=== PATIENT | female | born 1950 | race Hispanic/Latino ===

== ENCOUNTER 2020-03-14 09:20 | Inpatient (IN) | payer MEDICAID, OTHER ==
[~2020-03-14] VITALS: Ht 160 cm; Wt 73.5 kg
[2020-03-14 09:36] VITALS: BP 104/52
[2020-03-14 09:40] LABS: BASOPHILS % (AUTO) 0.5 % (0.0-2.0); EOSINOPHILS % (AUTO) 2.5 % (0.0-3.0); HEMATOCRIT 28.4 % (37.0-47.0); HEMOGLOBIN 9.5 G/DL (12.0-16.0); MEAN CORPUSCULAR VOLUME 81 FL (80-99); MONOCYTES % (AUTO) 6.1 % (1.0-10.0); NEUTROPHILS % (AUTO) 48.9 % (45.0-75.0); PLATELET COUNT 211 K/UL (150-450); RED BLOOD COUNT 3.51 M/UL (4.20-5.40); RED CELL DISTRIBUTION WIDTH 13.4 % (11.6-14.8)
[2020-03-14 09:50] LABS: ANION GAP 7 mmol/L (5-15); BLOOD UREA NITROGEN 17 mg/dL (7-18); CALCIUM 8.4 MG/DL (8.5-10.1); CARBON DIOXIDE 29 MMOL/L (21-32); CHLORIDE 105 MMOL/L (98-107); CREATININE 1.5 MG/DL (0.55-1.30); POTASSIUM 4.9 MMOL/L (3.5-5.1); SODIUM 141 MMOL/L (136-145)
[2020-03-14 10:06] LABS: ALANINE AMINOTRANSFERASE 12 U/L (12-78); ALBUMIN 2.9 G/DL (3.4-5.0); ALBUMIN/GLOBULIN RATIO 0.7 (1.0-2.7); ALKALINE PHOSPHATASE 106 U/L (46-116); ASPARTATE AMINO TRANSFERASE 15 U/L (15-37); BILIRUBIN,TOTAL 0.4 MG/DL (0.2-1.0); CREATINE KINASE 67 U/L (26-308)
[2020-03-14] MEDS ORDERED: Morphine Sulfate 2mg/ml Inj(IV/IM USE ONLY) IVP ONE (11:00)
--- NOTE | 2020-03-14 11:44 | Emergency Room Report ---
History of Present Illness General Chief Complaint: Chest Pain Source: Patient Present Illness HPI Patient presents with complaints of left upper chest pain reports that it started in the morning time upon awaking Pain is 5 out of 10 denies any change with position or exertion Denies any headache denies any pleurisy denies any vomiting or diarrhea Denies any change in recent medications she does have multiple medical history including hypertension, cardiac disease diabetes Allergies: Coded Allergies: TRAMADOL (Verified Allergy, Unknown, 03/14/20) COVID-19 Screening Contact w/high risk pt: No Recent Travel to affected area: No Experienced COVID-19 symptoms?: No COVID-19 Testing performed NOZZLE WORKER: No Patient History Past Medical History: see triage record Reviewed Nursing Documentation: PMH: Agreed; PSxH: Agreed Nursing Documentation-PMH Past Medical History: No History, Except For Hx Hypertension: Yes Hx Diabetes: Yes Review of Systems All Other Systems: negative except mentioned in HPI Physical Exam Vital Signs Date Time Temp Pulse Resp B/P (MAP) Pulse Ox O2 Delivery O2 Flow Rate FiO2 03/14/20 09:20 97.0 79 16 103/43 (63) 97 Room Air 03/14/20 09:36 99 Sp02 EP Interpretation: reviewed, normal General Appearance: no apparent distress Head: normocephalic, atraumatic Eyes: bilateral eye PERRL, bilateral eye EOMI ENT: hearing grossly normal, EOM grossly intact Neck: supple Respiratory: lungs clear, no respiratory distress, no retraction Cardiovascular #1: regular rate, rhythm Gastrointestinal: non tender, soft, no mass Musculoskeletal: normal inspection Neurologic: alert, oriented x3 Skin: no rash Lymphatic: normal inspection Medical Decision Making Diagnostic Impression: Primary Impression: ACS (acute coronary syndrome) ER Course Patient is a fairly complex patient with multiple differential to consideration including but not limited to cardiac cardiopulmonary and vascular emergencies Patient's troponin is intermediate low Chest x-ray does not show any acute process EKG shows nonspecific findings Given the reevaluation and patient's multiple comorbidities she is admitted for further care I spoke to [facility] contracted physician who is accepting the patient for transfer Labs Test 03/14/20 09:30 White Blood Count 8.0 K/UL (4.8-10.8) Red Blood Count 3.51 M/UL (4.20-5.40) Hemoglobin 9.5 G/DL (12.0-16.0) Hematocrit 28.4 % (37.0-47.0) Mean Corpuscular Volume 81 FL (80-99) Mean Corpuscular Hemoglobin 27.2 PG (27.0-31.0) Mean Corpuscular Hemoglobin Concent 33.6 G/DL (32.0-36.0) Red Cell Distribution Width 13.4 % (11.6-14.8) Platelet Count 211 K/UL (150-450) Mean Platelet Volume 5.5 FL (6.5-10.1) Neutrophils (%) (Auto) 48.9 % (45.0-75.0) Lymphocytes (%) (Auto) 42.0 % (20.0-45.0) Monocytes (%) (Auto) 6.1 % (1.0-10.0) Eosinophils (%) (Auto) 2.5 % (0.0-3.0) Basophils (%) (Auto) 0.5 % (0.0-2.0) Sodium Level 141 MMOL/L (136-145) Potassium Level 4.9 MMOL/L (3.5-5.1) Chloride Level 105 MMOL/L (98-107) Carbon Dioxide Level 29 MMOL/L (21-32) Anion Gap 7 mmol/L (5-15) Blood Urea Nitrogen 17 mg/dL (7-18) Creatinine 1.5 MG/DL (0.55-1.30) Estimat Glomerular Filtration Rate 34.2 mL/min (>60) Glucose Level 213 MG/DL (74-106) Calcium Level 8.4 MG/DL (8.5-10.1) Total Bilirubin 0.4 MG/DL (0.2-1.0) Aspartate Amino Transf (AST/SGOT) 15 U/L (15-37) Alanine Aminotransferase (ALT/SGPT) 12 U/L (12-78) Alkaline Phosphatase 106 U/L (46-116) Total Creatine Kinase 67 U/L (26-308) Troponin I 0.011 ng/mL (0.000-0.056) Pro-B-Type Natriuretic Peptide 990 pg/mL (0-125) Total Protein 6.9 G/DL (6.4-8.2) Albumin 2.9 G/DL (3.4-5.0) Globulin 4.0 g/dL Albumin/Globulin Ratio 0.7 (1.0-2.7) Lipase 168 U/L (73-393) EKG Diagnostic Results Rate: normal Rhythm: NSR ST Segments: other - Nonspecific ST and T wave changes Rhythm Strip Diag. Results EP Interpretation: yes Rate: 77 Rhythm: NSR, no PVC's, no ectopy Chest X-Ray Diagnostic Results Chest X-Ray Diagnostic Results : Chest X-Ray Ordered: Yes # of Views/Limited/Complete: 1 View Indication: Chest Pain EP Interpretation: Yes Interpretation: no consolidation, no effusion, no pneumothorax Impression: No acute disease Electronically Signed by: Thu Bonds DO Last Vital Signs Date Time Temp Pulse Resp B/P (MAP) Pulse Ox O2 Delivery O2 Flow Rate FiO2 03/14/20 11:31 97.0 03/14/20 09:36 84 18 104/52 99 Room Air 03/14/20 09:36 99 Status: improved Disposition: SHORT-TERM HOSP Condition: Improved Referrals: NON PHYSICIAN (PCP) Thu Bonds DO Mar 14, 2020 11:44
[2020-03-14 12:21] VITALS: BP 110/55
--- NOTE | 2020-03-14 13:05 | Diagnostic Imaging Report ---
Indication: Chest pain Technique: One view of the chest Comparison: 08/23/2012 Findings: There is mild bilateral perihilar interstitial prominence and central bronchial wall thickening. Lungs and pleural spaces are otherwise clear. Previously demonstrated left basilar opacity is no longer evident. The heart size is upper limits normal. Median sternotomy sutures and a prosthetic aortic valve are again noted. Impression: Nonspecific minimal perihilar interstitial prominence and central bronchial wall thickening, could indicate bronchitis or senescent changes. No definite acute process otherwise
[2020-03-14] MEDS ORDERED: dilTIAZem HCl 25mg/5ml Inj IV PRN (14:15)
[2020-03-14] MEDS ORDERED: Enalaprilat 2.5mg/2ml Inj IV PRN (14:15)
[2020-03-14] MEDS ORDERED: Nitroglycerin Subl 0.4mg tab SL PRN (14:15)
[2020-03-14] MEDS ORDERED: Albuterol/Ipratropium 3ml neb HHN PRN (14:15)
--- NOTE | 2020-03-14 14:21 | Consultation ---
History of Present Illness General Date patient seen: Mar 14, 2020 Chief Complaint: Chest Pain Present Illness HPI 69 year old female with hx of CVA, left sided weakness, DM, HTN, Aortic valve surgery X 2, on chronic anticoagulation presented to ER with CC of chest pain, which has been constant for a few days. She was borderline hypotensive. She is admitted to telemetry for further management. Allergies: Coded Allergies: TRAMADOL (Verified Allergy, Unknown, 03/14/20) Medication History Scheduled Celecoxib* (Celebrex*), 200 MG ORAL DAILY, (Reported) Docusate Sodium* (Docusate Sodium*), 100 MG ORAL THREE TIMES A DAY, (Reported) Gabapentin* (Gabapentin*), 300 MG ORAL THREE TIMES A DAY, (Reported) Glipizide* (Glipizide*), 5 MG ORAL BIDAC, (Reported) Losartan Potassium* (Losartan Potassium*), 25 MG ORAL DAILY, (Reported) Montelukast Sodium* (Montelukast Sodium*), 10 MG ORAL DAILY, (Reported) Pantoprazole* (Pantoprazole*), 40 MG ORAL DAILY, (Reported) Pravastatin Sod* (Pravastatin Sod*), 20 MG ORAL BEDTIME, (Reported) Rivaroxaban (Xarelto*), 10 MG ORAL DAILY, (Reported) Ropinirole Hcl* (Ropinirole Hcl*), 3 MG PO TID, (Reported) Sitagliptin* (Januvia*), 100 MG ORAL DAILY, (Reported) Scheduled PRN Calcium Carbonate (Calcium), 500 MG ORAL THREE TIMES A DAY PRN for HEARTBURN, ( Reported) Hydrocodone/Acetaminophen 5-325* (Hydrocodone/Acetaminophen 5-325*), 1 TAB ORAL Q12 PRN for For Pain, (Reported) Miscellaneous Medications Isosorbide Mononitrate (Isosorbide Mononitrate), 30 MG PO, (Reported) Nph, Human Insulin Isophane* (Novolin N*), 0 SUBQ, (Reported) Potassium Chloride (Potassium Chloride), 8 MEQ PO, (Reported) Patient History Healthcare decision maker Resuscitation status Advanced Directive on File Past Medical/Surgical History Past Medical/Surgical History: (1) CAD (coronary artery disease) (2) Diabetes mellitus Review of Systems All Other Systems: negative except mentioned in HPI Physical Exam General Appearance: WD/WN, no apparent distress Lines, tubes and drains: peripheral HEENT: normocephalic, atraumatic Neck: non-tender, normal alignment Respiratory/Chest: chest wall non-tender, lungs clear Breasts: no masses Cardiovascular/Chest: normal peripheral pulses, regular rhythm Abdomen: normal bowel sounds, non tender Genitourinary/Rectal: normal genital exam Extremities: normal range of motion Last 24 Hour Vital Signs Date Time Temp Pulse Resp B/P (MAP) Pulse Ox O2 Delivery O2 Flow Rate FiO2 03/14/20 12:21 97.0 87 16 110/55 100 Room Air 03/14/20 11:31 97.0 03/14/20 09:36 97.0 84 18 104/52 99 Room Air 03/14/20 09:36 84 18 Room Air 99 03/14/20 09:20 97.0 79 16 103/43 (63) 97 Room Air Laboratory Tests Test 03/14/20 09:30 White Blood Count 8.0 K/UL (4.8-10.8) Red Blood Count 3.51 M/UL (4.20-5.40) L Hemoglobin 9.5 G/DL (12.0-16.0) L Hematocrit 28.4 % (37.0-47.0) L Mean Corpuscular Volume 81 FL (80-99) Mean Corpuscular Hemoglobin 27.2 PG (27.0-31.0) Mean Corpuscular Hemoglobin Concent 33.6 G/DL (32.0-36.0) Red Cell Distribution Width 13.4 % (11.6-14.8) Platelet Count 211 K/UL (150-450) Mean Platelet Volume 5.5 FL (6.5-10.1) L Neutrophils (%) (Auto) 48.9 % (45.0-75.0) Lymphocytes (%) (Auto) 42.0 % (20.0-45.0) Monocytes (%) (Auto) 6.1 % (1.0-10.0) Eosinophils (%) (Auto) 2.5 % (0.0-3.0) Basophils (%) (Auto) 0.5 % (0.0-2.0) Sodium Level 141 MMOL/L (136-145) Potassium Level 4.9 MMOL/L (3.5-5.1) Chloride Level 105 MMOL/L (98-107) Carbon Dioxide Level 29 MMOL/L (21-32) Anion Gap 7 mmol/L (5-15) Blood Urea Nitrogen 17 mg/dL (7-18) Creatinine 1.5 MG/DL (0.55-1.30) H Estimat Glomerular Filtration Rate 34.2 mL/min (>60) Glucose Level 213 MG/DL (74-106) H Calcium Level 8.4 MG/DL (8.5-10.1) L Total Bilirubin 0.4 MG/DL (0.2-1.0) Aspartate Amino Transf (AST/SGOT) 15 U/L (15-37) Alanine Aminotransferase (ALT/SGPT) 12 U/L (12-78) Alkaline Phosphatase 106 U/L (46-116) Total Creatine Kinase 67 U/L (26-308) Troponin I 0.011 ng/mL (0.000-0.056) Pro-B-Type Natriuretic Peptide 990 pg/mL (0-125) H Total Protein 6.9 G/DL (6.4-8.2) Albumin 2.9 G/DL (3.4-5.0) L Globulin 4.0 g/dL Albumin/Globulin Ratio 0.7 (1.0-2.7) L Lipase 168 U/L (73-393) Height (Feet): 5 Height (Inches): 3.00 Weight (Pounds): 160 Medications Current Medications Medications (Trade) Dose Ordered Sig/Ran Route PRN Reason Start Time Stop Time Status Last Admin Dose Admin Acetaminophen (Tylenol) 650 mg Q4H PRN ORAL FEVER 03/14/20 14:15 04/13/20 14:14 Albuterol/ Ipratropium (Albuterol/ Ipratropium) 3 ml Q4H PRN HHN Shortness of Breath 03/14/20 14:15 03/19/20 14:14 Aspirin (ASA) 162 mg DAILY ORAL 03/15/20 09:00 04/29/20 08:59 Diltiazem HCl (Cardizem) 10 mg Q1H PRN IV heart rate more than 120, 03/14/20 14:15 04/13/20 14:14 Enalaprilat (Vasotec) 2.5 mg Q6H PRN IV sbp more than 160 03/14/20 14:15 04/13/20 14:14 Heparin Sodium (Porcine) (Heparin 5000 units/ml) 5,000 units EVERY 12 HOURS SUBQ 03/14/20 21:00 04/28/20 20:59 Nitroglycerin (Ntg) 0.4 mg Q5M PRN SL Prn Chest Pain 03/14/20 14:15 04/13/20 14:14 Ondansetron HCl (Zofran) 4 mg Q6H PRN IVP Nausea & Vomiting 03/14/20 14:15 04/13/20 14:14 Polyethylene Glycol (Miralax) 17 gm DAILYPRN PRN ORAL Constipation 03/14/20 14:15 04/13/20 14:14 Temazepam (Restoril) 15 mg HSPRN PRN ORAL Insomnia 03/14/20 14:15 03/21/20 14:14 Assessment/Plan Problem List: (1) ACS (acute coronary syndrome) ICD Codes: I24.9 - Acute ischemic heart disease, unspecified SNOMED: 903318151 (2) CAD (coronary artery disease) ICD Codes: I25.10 - Atherosclerotic heart disease of [place] coronary artery without angina pectoris SNOMED: 53774441 (3) Chronic anticoagulation ICD Codes: Z79.01 - intermediate manager (current) use of anticoagulants SNOMED: 389921648 (4) History of CVA (cerebrovascular accident) ICD Codes: Z86.73 - Personal history of transient ischemic attack (TIA), and cerebral infarction without residual deficits SNOMED: 148293976 (5) Left-sided weakness ICD Codes: R53.1 - Weakness SNOMED: 477651397 (6) Diabetes mellitus ICD Codes: E11.9 - Type 2 diabetes mellitus without complications SNOMED: 72044555 Assessment/Plan: serial ekg, troponin has been negative. echocardiogram still pending Cardiology consult appreciated siding scale diabetic diet dvt prophylaxis. home meds reviewed and some continued. Aurea Kirby MD Mar 14, 2020 14:21
[2020-03-14 14:41] VITALS: BP 115/57
[2020-03-14] MEDS ORDERED: JANUVIA25 MG ORAL (14:45)
[2020-03-14] MEDS ORDERED: MONTELUKAST SOD10 MG ORAL (14:45)
[2020-03-14] MEDS ORDERED: XARELTO10 MG ORAL (14:45)
[2020-03-14] MEDS ORDERED: ISOSORBIDE MONO20 MG PO (14:45)
[2020-03-14] MEDS ORDERED: PRAVASTATIN SOD20 M1 ORAL (14:45)
[2020-03-14] MEDS ORDERED: LOSARTAN POTASS25 MG ORAL (14:45)
[2020-03-14] MEDS ORDERED: ROPINIROLE HCL2 MG PO (14:45)
[2020-03-14] MEDS ORDERED: PANTOPRAZOLE SO40 MG ORAL (14:45)
[2020-03-14] MEDS ORDERED: GABAPENTIN100 MG ORAL (14:46)
[2020-03-14] MEDS ORDERED: DOCUSATE SODIU100 MG ORAL (14:47)
[2020-03-14] MEDS ORDERED: GLIPIZIDE5 MG ORAL (14:47)
[2020-03-14] MEDS ORDERED: CELEBREX200 MG ORAL (14:47)
[2020-03-14] MEDS ORDERED: POTASSIUM CHLOR8 ME2 PO (14:49)
[2020-03-14] MEDS ORDERED: NOVOLIN N100 UNIT/1 SUBQ (14:49)
[2020-03-14] MEDS ORDERED: HYDROCODON-ACE1 EA15 ORAL (14:49)
[2020-03-14] MEDS ORDERED: TUMS500 MG ORAL (14:49)
--- NOTE | 2020-03-14 16:29 | Diagnostic Imaging Report ---
Indications: Headache, head pain Technique: Spiral acquisitions obtained through the brain. Angled axial and coronal 5 x 5 mm slices were reconstructed. Total dose length product 989 mGycm. CTDI vol(s) 53 mGy. Dose reduction achieved using automated exposure control Comparison: None. Findings: No acute intracranial hemorrhage or edema. No mass effect nor midline shift. Normal spangler-white differentiation. Old lacunar infarct is seen in the right lentiform nucleus. There is minimal age-related prominence of the ventricles and extra axial CSF spaces. Visualized orbits are unremarkable. There is right maxillary sinus partial opacification. The calvarium is intact. The mastoids are clear Impression: Negative for acute intracranial bleed or mass effect Old right basal ganglia lacunar infarct Minimal age-related volume loss The CT scanner at [facility] is accredited by the [employer] and the scans are performed using protocols designed to limit radiation exposure to as low as reasonably achievable to attain images of sufficient resolution adequate for diagnostic evaluation.
[2020-03-14 16:30] VITALS: BP 120/67
[2020-03-14] MEDS: NovoLOG Insulin Flexpen SUBQ SCH ×2 (17:36→20:43)
--- NOTE | 2020-03-14 17:36 | History & Physical ---
History and Physical History & Physicial Dictated for Int Med-Dr Williamson no. [id number] Dimitris Frederick MD Mar 14, 2020 17:36
[2020-03-14] MEDS: Morphine Sulfate 4mg/ml Inj (IV USE ONLY) IVP PRN (17:49)
[2020-03-14 20:00] VITALS: BP 141/61
--- NOTE | 2020-03-14 20:19 | Cardiology Progress Note ---
Assessment/Plan Assessment/Plan repeat cardiac enzyme ekg echo [id number] Objective Last 24 Hour Vital Signs Date Time Temp Pulse Resp B/P (MAP) Pulse Ox O2 Delivery O2 Flow Rate FiO2 03/14/20 18:42 77 03/14/20 18:05 99.5 03/14/20 16:30 100.4 71 19 120/67 (84) 95 03/14/20 16:30 Room Air 03/14/20 16:00 98.1 75 17 116/57 98 Room Air 03/14/20 14:41 97.0 83 18 115/57 99 Room Air 03/14/20 12:21 97.0 87 16 110/55 100 Room Air 03/14/20 11:31 97.0 03/14/20 09:36 97.0 84 18 104/52 99 Room Air 03/14/20 09:36 84 18 Room Air 99 03/14/20 09:20 97.0 79 16 103/43 (63) 97 Room Air Laboratory Tests Test 03/14/20 09:30 03/14/20 14:53 White Blood Count 8.0 K/UL (4.8-10.8) Red Blood Count 3.51 M/UL (4.20-5.40) L Hemoglobin 9.5 G/DL (12.0-16.0) L Hematocrit 28.4 % (37.0-47.0) L Mean Corpuscular Volume 81 FL (80-99) Mean Corpuscular Hemoglobin 27.2 PG (27.0-31.0) Mean Corpuscular Hemoglobin Concent 33.6 G/DL (32.0-36.0) Red Cell Distribution Width 13.4 % (11.6-14.8) Platelet Count 211 K/UL (150-450) Mean Platelet Volume 5.5 FL (6.5-10.1) L Neutrophils (%) (Auto) 48.9 % (45.0-75.0) Lymphocytes (%) (Auto) 42.0 % (20.0-45.0) Monocytes (%) (Auto) 6.1 % (1.0-10.0) Eosinophils (%) (Auto) 2.5 % (0.0-3.0) Basophils (%) (Auto) 0.5 % (0.0-2.0) Sodium Level 141 MMOL/L (136-145) Potassium Level 4.9 MMOL/L (3.5-5.1) Chloride Level 105 MMOL/L (98-107) Carbon Dioxide Level 29 MMOL/L (21-32) Anion Gap 7 mmol/L (5-15) Blood Urea Nitrogen 17 mg/dL (7-18) Creatinine 1.5 MG/DL (0.55-1.30) H Estimat Glomerular Filtration Rate 34.2 mL/min (>60) Glucose Level 213 MG/DL (74-106) H Calcium Level 8.4 MG/DL (8.5-10.1) L Total Bilirubin 0.4 MG/DL (0.2-1.0) Aspartate Amino Transf (AST/SGOT) 15 U/L (15-37) Alanine Aminotransferase (ALT/SGPT) 12 U/L (12-78) Alkaline Phosphatase 106 U/L (46-116) Total Creatine Kinase 67 U/L (26-308) Troponin I 0.011 ng/mL (0.000-0.056) Pending Pro-B-Type Natriuretic Peptide 990 pg/mL (0-125) H Total Protein 6.9 G/DL (6.4-8.2) Albumin 2.9 G/DL (3.4-5.0) L Globulin 4.0 g/dL Albumin/Globulin Ratio 0.7 (1.0-2.7) L Lipase 168 U/L (73-393) Geraldo Daley MD Mar 14, 2020 20:19
[2020-03-14] MEDS: Heparin 5000 units/ml inj SUBQ SCH (20:42)
--- NOTE | 2020-03-14 22:00 | History and Physical Report ---
DATE OF ADMISSION: 03/14/2020 CHIEF COMPLAINT: Patient is a 69-year-old female, who presents with a chief complaint of chest pain. HISTORY OF PRESENT ILLNESS: Began last evening, 03/13/2020. Patient began to experience left-sided chest pain. Patient states her left arm is also painful and numb. Patient also states that her left leg is painful. Patient presented to [place] emergency room. Patient is admitted with chest pain to rule out acute coronary syndrome. REVIEW OF SYSTEMS: CONSTITUTIONAL: Patient denies weight loss or weight gain. Patient denies fevers or chills. HEENT: Patient denies ear or throat pain. Patient denies headache. CARDIOVASCULAR: Patient denies palpitations. Patient complains of chest pain. CHEST: Patient denies wheezing or shortness of breath. ABDOMINAL: Patient denies nausea, vomiting, diarrhea, or constipation. GENITOURINARY: Patient denies dysuria or increased frequency of urination. NEUROMUSCULAR: Patient denies seizures or generalized weakness. PAST MEDICAL HISTORY: Significant for: 1. Diabetes type 2. 2. Hypertension. 3. Hypercholesterolemia. 4. History of aortic valve stenosis. PAST SURGICAL HISTORY: Significant for: 1. Tissue aortic valve replacement in 2011. 2. Mechanical aortic valve replacement in 2013. 3. Cholecystectomy. 4. Appendectomy. 5. Bilateral cataract surgery. CURRENT MEDICATIONS: 1. Calcium carbonate 500 mg 1 tablet p.o. 3 times daily. 2. Celebrex 200 mg p.o. daily. 3. Docusate 100 mg p.o. 3 times daily. 4. Gabapentin 300 mg p.o. 3 times daily. 5. Glipizide 5 mg p.o. twice daily. 6. [place] 5/325 mg 1 tablet p.o. q.12h. p.r.n. 7. Isosorbide mononitrate 30 mg p.o. daily. 8. Losartan 25 mg p.o. daily. 9. Singulair 10 mg p.o. daily. 10. NPH insulin of an unknown dose daily. 11. Pantoprazole 40 mg p.o. daily. 12. Potassium chloride 8 mEq p.o. daily. 13. Pravastatin 20 mg p.o. at bedtime. 14. Xarelto 10 mg p.o. daily. 15. Requip 3 mg p.o. 3 times daily. 16. Sitagliptin 25 mg p.o. daily. ALLERGIES: To tramadol. SOCIAL HISTORY: Patient is and lives with a caregiver. Patient denies tobacco use having quit 40 years ago. Patient denies alcohol use. PHYSICAL EXAMINATION: VITAL SIGNS: Temperature 97.0, respirations 18, pulse 84, blood pressure 104/54. GENERAL: Patient is well-developed, well-nourished female, in no apparent distress. HEENT: Eyes pupils are equal and responsive to light and accommodation. Extraocular movements are intact. NECK: Supple. No lymphadenopathy. CHEST: Lungs are clear to auscultation bilaterally. No wheezes or rales. CARDIOVASCULAR: Click is heard. S1, S2 are normal without murmurs, rubs, or gallops. ABDOMEN: Soft, nontender, nondistended. Positive bowel sounds. No evidence of hepatosplenomegaly. Currently, no rebound or guarding noted. EXTREMITIES: Negative for clubbing, cyanosis, or edema. RECTAL/GENITAL: Not performed. NEUROLOGIC: Cranial nerves II to XII grossly intact without focal deficits. Motor strength is 5/5 bilaterally. Deep tendon reflexes are 2+ plantar. LABORATORY STUDIES: WBC 8.3, hemoglobin 9.5, hematocrit 28.4, platelets 211,000. Sodium 141, potassium 4.9, chloride 105, CO2 29, BUN 17, creatinine 1.5, glucose 213. Troponin 0.01. BNP elevated at 990. ASSESSMENT: This is a 69-year-old female. 1. Chest pain. 2. History of aortic stenosis. 3. Diabetes type 2. 4. Hypertension. 5. Hypercholesterolemia. TREATMENT: 1. Chest pain/aortic stenosis. A Cardiology consultation has been obtained with Dr. Geraldo Daley. Serial troponin levels will be performed. An echocardiogram is pending. 2. Diabetes type 2. NovoLog sliding scale has been instituted. 3. Hypertension. Continue losartan as above. 4. Hypercholesterolemia. Continue pravastatin as above. Dimitris Frederick M.D. DR: ROWENA JOB#: [id number] CC:
[2020-03-15] VITALS: BP 147/55
[2020-03-15] MEDS: Morphine Sulfate 2mg/ml Inj(IV/IM USE ONLY) IVP PRN ×3 (00:55→22:13)
[2020-03-15 03:01] LABS: BASOPHILS % (AUTO) 1.3 % (0.0-2.0); EOSINOPHILS % (AUTO) 2.6 % (0.0-3.0); HEMATOCRIT 30.2 % (37.0-47.0); HEMOGLOBIN 9.4 G/DL (12.0-16.0); MEAN CORPUSCULAR VOLUME 86 FL (80-99); MONOCYTES % (AUTO) 5.6 % (1.0-10.0); NEUTROPHILS % (AUTO) 38.4 % (45.0-75.0); PLATELET COUNT 149 K/UL (150-450); RED BLOOD COUNT 3.49 M/UL (4.20-5.40); RED CELL DISTRIBUTION WIDTH 13.4 % (11.6-14.8); WHITE BLOOD COUNT 7.6 K/UL (4.8-10.8)
--- NOTE | 2020-03-15 03:15 | Consultation ---
DATE OF CONSULTATION: 03/14/2020 CARDIOLOGY CONSULTATION CONSULTING PHYSICIAN: Geraldo Daley MD. REFERRING PHYSICIAN: Aurea Kirby MD and Dimitris Frederick MD. REASON FOR REFERRAL: Chest pain. HISTORY OF PRESENT ILLNESS: This is a 69-year-old female who presented to the hospital because of chest pain in the left side of the chest with weakness in the left arm and left leg. This has been present since last night, although she received some pain medication and she feels better now. There is no shortness of breath. No PND. She is usually not ambulatory because of her knee issues, but she does get around with a wheelchair apparently and she does not have any history of heart attack. She has had a history of two aortic valve replacement, apparently in 2011 and subsequently 2013. Not clear why the second surgery was performed, but nothing after that. She did not have a bypass surgery at the time of her aortic valve surgery apparently according to her. The pain in the chest is present constantly. Does get worse when she moves her left arm or when she touches the area, but not when she takes a deep breath or coughs. PAST MEDICAL HISTORY: Positive for diabetes and high blood pressure and high cholesterol. No history of heart attack. No history of cancer. She has had a history of stroke previously. No hepatitis or tuberculosis. No asthma or emphysema. No ulcers. No kidney problems or liver problems. No thyroid problems or anemia. She does have arthritis. There is no HIV or AIDS, but she does indicate she has some "blood clot in her head." SOCIAL HISTORY: She used to smoke, but she quit that 45 years ago. Does not drink alcoholic beverages. Does not use drugs. REVIEW OF SYSTEMS: GASTROINTESTINAL: She has had some nausea, but no vomiting. No diarrhea or constipation. No bloody or black stools. GENITOURINARY: She denies. PULMONARY: She denies. No coughing wheezing. CONSTITUTIONAL: Negative until today. She apparently had a fever of 100.4. NEUROLOGICAL: She has been weak in her left arm. PHYSICAL EXAMINATION: GENERAL: Shows to be elderly female, in no respiratory distress. She is lying down approximately 20 degrees head of bed elevation. NECK: Supple. LUNGS: Clear to auscultation and percussion. CARDIAC: Regular rate and rhythm. No heaves or thrills noted. ABDOMEN: Soft, obese. Positive bowel sounds. EXTREMITIES: There is no edema. NEUROLOGICAL: She is awake and responsive. She moves her arm somewhat, but she does not bring it all the way up because of pain she states. LABORATORY AND DIAGNOSTIC DATA: White count of 8, hemoglobin 9.5, and platelet count 211. Sodium 141, potassium 4.9, chloride 105, bicarb 29, BUN of 17, creatinine 1.5, and glucose of 213. Troponins 2 sets are negative. Third one is pending. ProBNP was only 999. Albumin of 2.9. Lipase of 168. No other tests are available. She did have a chest x-ray that was read as nonspecific minimal perihilar interstitial prominence and central bronchial wall thickening, could indicate bronchitis or senescent changes. No acute processes otherwise. She did have a CT scan of her head that was performed in the emergency room shows negative for acute intracranial bleed, mass effect, old right basal ganglia lacunar infarct, minimal volume change. Patient's electrocardiogram shows normal sinus rhythm with in I, aVL and chronicity of this changes otherwise unknown. ASSESSMENT AND PLAN: 1. Chest pain. 2. History of aortic valve replacement x2. 3. History of CVA. 4. Diabetes mellitus. 5. History of hypertension. 6. History of hyperlipidemia. 7. Low-grade fevers. 8. Left-sided weakness. This patient was seen in cardiac consultation. The patient's telemetry data shows sinus rhythm. Electrocardiogram as mentioned reviewed. Patient's pain seems to be musculoskeletal in origin based on the description, changing, and exacerbating factors. An echocardiogram is pending at this time. She has had a low-grade fever and she is on Xarelto 10 mg on a daily basis, the reasons for which remains unknown to me at this time. Nevertheless, an echocardiogram should be ordered as I suspect she should be back on her usual medications until more data becomes available and I suspect if her echocardiogram is normal, cardiac enzymes are negative, and the pain remains suggestive of musculoskeletal, she probably needs to have further testing as outpatient. Further recommendations depending on the results of the repeat EKG, cardiac enzymes as well as echocardiogram. The workup for the left-sided weakness will be left to the primary service, Dr. Frederick. Geraldo Daley M.D. DR: ROD JOB#: [id number] CC:
[2020-03-15 03:32] LABS: CHOLESTEROL 168 MG/DL (< 200); HDL CHOLESTEROL 57 MG/DL (40-60); TRIGLYCERIDES 176 MG/DL (30-150)
[2020-03-15 04:00] VITALS: BP 123/54
[2020-03-15] MEDS: NovoLOG Insulin Flexpen SUBQ SCH ×4 (05:52→20:25)
[2020-03-15 08:00] VITALS: BP 131/78
[2020-03-15] MEDS: Aspirin Baby 81mg ORAL SCH (08:53)
[2020-03-15] MEDS: Heparin 5000 units/ml inj SUBQ SCH (08:54)
[2020-03-15 12:00] VITALS: BP 137/50
--- NOTE | 2020-03-15 12:17 | Pulmonology Progress Note ---
Subjective ROS Limited/Unobtainable: No Interval Events: still c/o local chest pain, tender on touch Allergies: Coded Allergies: TRAMADOL (Verified Allergy, Unknown, 03/14/20) Objective Last 24 Hour Vital Signs Date Time Temp Pulse Resp B/P (MAP) Pulse Ox O2 Delivery O2 Flow Rate FiO2 03/15/20 09:00 Room Air 03/15/20 08:00 98.8 72 18 131/78 (95) 97 03/15/20 07:55 73 03/15/20 07:00 97 Room Air 03/15/20 04:00 98.2 81 21 123/54 (77) 96 03/15/20 04:00 67 03/15/20 00:00 98.7 77 20 147/55 (85) 97 03/15/20 00:00 66 03/14/20 21:00 Room Air 03/14/20 20:04 96 Room Air 03/14/20 20:00 99.1 74 21 141/61 (87) 95 03/14/20 20:00 69 03/14/20 18:42 77 03/14/20 18:05 99.5 03/14/20 16:30 100.4 71 19 120/67 (84) 95 03/14/20 16:30 Room Air 03/14/20 16:00 98.1 75 17 116/57 98 Room Air 03/14/20 14:41 97.0 83 18 115/57 99 Room Air 03/14/20 12:21 97.0 87 16 110/55 100 Room Air Intake and Output 03/14/20 03/15/20 19:00 07:00 Intake Total 0 ml 400 ml Output Total 550 ml Balance 0 ml -150 ml Intake Oral 0 ml 400 ml Output Urine Total 550 ml # Voids 2 General Appearance: WD/WN HEENT: normocephalic, atraumatic Respiratory: chest wall non-tender, lungs clear Cardiovascular: normal peripheral pulses, normal rate Abdomen: normal bowel sounds, soft, non tender Genitourinary: normal external genitalia Extremities: no cyanosis Skin: no rash 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 Laboratory Tests 03/14/20 14:53: Troponin I 0.013 03/14/20 21:20: Troponin I 0.010 03/15/20 02:30: Troponin I 0.006, White Blood Count 7.6, Red Blood Count 3.49L, Hemoglobin 9.4L , Hematocrit 30.2L, Mean Corpuscular Volume 86, Mean Corpuscular Hemoglobin 27.1 , Mean Corpuscular Hemoglobin Concent 31.3L, Red Cell Distribution Width 13.4, Platelet Count 149L, Mean Platelet Volume 7.3, Neutrophils (%) (Auto) 38.4L, Lymphocytes (%) (Auto) 52.0H, Monocytes (%) (Auto) 5.6, Eosinophils (%) (Auto) 2.6, Basophils (%) (Auto) 1.3, C-Reactive Protein, Quantitative 1.5H, Triglycerides Level 176H, Cholesterol Level 168, LDL Cholesterol 88, HDL Cholesterol 57, Cholesterol/HDL Ratio 2.9L, Thyroid Stimulating Hormone (TSH) 1.636 03/15/20 04:30: Prothrombin Time 10.6, Prothromb Time International Ratio 1.0, Activated Partial Thromboplast Time 26 Current Medications Medications (Trade) Dose Ordered Sig/Ran Route PRN Reason Start Time Stop Time Status Last Admin Dose Admin Acetaminophen (Tylenol) 650 mg Q4H PRN ORAL FEVER 03/14/20 14:15 04/13/20 14:14 03/14/20 17:35 Albuterol/ Ipratropium (Albuterol/ Ipratropium) 3 ml Q4H PRN HHN Shortness of Breath 03/14/20 14:15 03/19/20 14:14 Aspirin (ASA) 162 mg DAILY ORAL 03/15/20 09:00 04/29/20 08:59 03/15/20 08:53 Dextrose (Dextrose 50%) 25 ml Q30M PRN IV Hypoglycemia 03/14/20 14:30 06/12/20 14:29 Dextrose (Dextrose 50%) 50 ml Q30M PRN IV Hypoglycemia 03/14/20 14:30 06/12/20 14:29 Diltiazem HCl (Cardizem) 10 mg Q1H PRN IV heart rate more than 120, 03/14/20 14:15 04/13/20 14:14 Enalaprilat (Vasotec) 2.5 mg Q6H PRN IV sbp more than 160 03/14/20 14:15 04/13/20 14:14 Heparin Sodium (Porcine) (Heparin 5000 units/ml) 5,000 units EVERY 12 HOURS SUBQ 03/15/20 21:00 04/28/20 20:59 UNV Insulin Aspart (NovoLOG) BEFORE MEALS AND HS SUBQ 03/14/20 16:30 06/12/20 16:29 03/15/20 11:55 Morphine Sulfate (Morphine Sulfate) 2 mg Q4H PRN IVP Moderate Pain (Pain Scale 4-6) 03/14/20 17:30 03/21/20 17:29 03/15/20 08:53 Morphine Sulfate (Morphine Sulfate) 4 mg Q4H PRN IVP Severe Pain (Pain Scale 7-10) 03/14/20 17:30 03/21/20 17:29 03/14/20 17:49 Nitroglycerin (Ntg) 0.4 mg Q5M PRN SL Prn Chest Pain 03/14/20 14:15 04/13/20 14:14 Ondansetron HCl (Zofran) 4 mg Q6H PRN IVP Nausea & Vomiting 03/14/20 14:15 04/13/20 14:14 Polyethylene Glycol (Miralax) 17 gm DAILYPRN PRN ORAL Constipation 03/14/20 14:15 04/13/20 14:14 Temazepam (Restoril) 15 mg HSPRN PRN ORAL Insomnia 03/14/20 14:15 03/21/20 14:14 Assessment/Plan Problems: (1) ACS (acute coronary syndrome) (2) CAD (coronary artery disease) (3) Chronic anticoagulation (4) History of CVA (cerebrovascular accident) (5) Left-sided weakness (6) Diabetes mellitus Assessment/Plan serial ekg, troponin echocardiogram pending Cardiology f/u siding scale diabetic diet dvt prophylaxis. Aurea Kirby MD Mar 15, 2020 12:17
[2020-03-15] MEDS: Sucralfate 1gm tab ORAL SCH ×3 (13:11→20:20)
[2020-03-15] MEDS: Morphine Sulfate 4mg/ml Inj (IV USE ONLY) IVP PRN (13:11)
--- NOTE | 2020-03-15 15:51 | Internal Med Progress Note ---
Subjective Physician Name Humberto Williamson Attending Physician Humberto Williamson MD Current Medications Medications (Trade) Dose Ordered Sig/Ran Route PRN Reason Start Time Stop Time Status Last Admin Dose Admin Acetaminophen (Tylenol) 650 mg Q4H PRN ORAL FEVER 03/14/20 14:15 04/13/20 14:14 03/14/20 17:35 Albuterol/ Ipratropium (Albuterol/ Ipratropium) 3 ml Q4H PRN HHN Shortness of Breath 03/14/20 14:15 03/19/20 14:14 Aspirin (ASA) 162 mg DAILY ORAL 03/15/20 09:00 04/29/20 08:59 03/15/20 08:53 Dextrose (Dextrose 50%) 25 ml Q30M PRN IV Hypoglycemia 03/14/20 14:30 06/12/20 14:29 Dextrose (Dextrose 50%) 50 ml Q30M PRN IV Hypoglycemia 03/14/20 14:30 06/12/20 14:29 Diltiazem HCl (Cardizem) 10 mg Q1H PRN IV heart rate more than 120, 03/14/20 14:15 04/13/20 14:14 Enalaprilat (Vasotec) 2.5 mg Q6H PRN IV sbp more than 160 03/14/20 14:15 04/13/20 14:14 Gabapentin (Neurontin) 300 mg THREE TIMES A DAY ORAL 03/15/20 13:00 04/14/20 12:59 03/15/20 13:11 Insulin Aspart (NovoLOG) BEFORE MEALS AND HS SUBQ 03/14/20 16:30 06/12/20 16:29 03/15/20 11:55 Losartan Potassium (Cozaar) 25 mg DAILY ORAL 03/16/20 09:00 04/15/20 08:59 Morphine Sulfate (Morphine Sulfate) 2 mg Q4H PRN IVP Moderate Pain (Pain Scale 4-6) 03/14/20 17:30 03/21/20 17:29 03/15/20 08:53 Morphine Sulfate (Morphine Sulfate) 4 mg Q4H PRN IVP Severe Pain (Pain Scale 7-10) 03/14/20 17:30 03/21/20 17:29 03/15/20 13:11 Nitroglycerin (Ntg) 0.4 mg Q5M PRN SL Prn Chest Pain 03/14/20 14:15 04/13/20 14:14 Ondansetron HCl (Zofran) 4 mg Q6H PRN IVP Nausea & Vomiting 03/14/20 14:15 04/13/20 14:14 Pantoprazole (Protonix) 40 mg EVERY 12 HOURS ORAL 03/15/20 13:00 04/14/20 12:59 03/15/20 13:12 Polyethylene Glycol (Miralax) 17 gm DAILYPRN PRN ORAL Constipation 03/14/20 14:15 04/13/20 14:14 Rivaroxaban (Xarelto) 10 mg DAILY ORAL 03/16/20 09:00 06/14/20 08:59 Sitagliptin Phosphate (Januvia) 25 mg DAILY ORAL 03/16/20 09:00 04/15/20 08:59 Sucralfate (Carafate) 1 gm FOUR TIMES A DAY ORAL 03/15/20 13:00 06/13/20 12:59 03/15/20 13:11 Temazepam (Restoril) 15 mg HSPRN PRN ORAL Insomnia 03/14/20 14:15 03/21/20 14:14 Allergies: Coded Allergies: TRAMADOL (Verified Allergy, Unknown, 03/14/20) Subjective Awake, Alert, responsive, complain about chest pain, denies any shortness of breath. Complain about acid reflux/GERD Objective Last Vital Signs Date Time Temp Pulse Resp B/P (MAP) Pulse Ox O2 Delivery O2 Flow Rate FiO2 03/15/20 12:00 97.9 71 20 137/50 (79) 96 03/15/20 09:00 Room Air 03/14/20 09:36 99 Laboratory Tests Test 03/14/20 21:20 03/15/20 02:30 03/15/20 04:30 Troponin I 0.010 ng/mL (0.000-0.056) 0.006 ng/mL (0.000-0.056) White Blood Count 7.6 K/UL (4.8-10.8) Red Blood Count 3.49 M/UL (4.20-5.40) L Hemoglobin 9.4 G/DL (12.0-16.0) L Hematocrit 30.2 % (37.0-47.0) L Mean Corpuscular Volume 86 FL (80-99) Mean Corpuscular Hemoglobin 27.1 PG (27.0-31.0) Mean Corpuscular Hemoglobin Concent 31.3 G/DL (32.0-36.0) L Red Cell Distribution Width 13.4 % (11.6-14.8) Platelet Count 149 K/UL (150-450) L Mean Platelet Volume 7.3 FL (6.5-10.1) Neutrophils (%) (Auto) 38.4 % (45.0-75.0) L Lymphocytes (%) (Auto) 52.0 % (20.0-45.0) H Monocytes (%) (Auto) 5.6 % (1.0-10.0) Eosinophils (%) (Auto) 2.6 % (0.0-3.0) Basophils (%) (Auto) 1.3 % (0.0-2.0) C-Reactive Protein, Quantitative 1.5 mg/dL (0.00-0.90) H Triglycerides Level 176 MG/DL (30-150) H Cholesterol Level 168 MG/DL (< 200) LDL Cholesterol 88 mg/dL (<100) HDL Cholesterol 57 MG/DL (40-60) Cholesterol/HDL Ratio 2.9 (3.3-4.4) L Thyroid Stimulating Hormone (TSH) 1.636 uiU/mL (0.358-3.740) Prothrombin Time 10.6 SEC (9.30-11.50) Prothromb Time International Ratio 1.0 (0.9-1.1) Activated Partial Thromboplast Time 26 SEC (23-33) Intake and Output 03/14/20 03/15/20 19:00 07:00 Intake Total 0 ml 400 ml Output Total 550 ml Balance 0 ml -150 ml Intake Oral 0 ml 400 ml Output Urine Total 550 ml # Voids 2 Objective General: No acute distress, awake and alert HEENT: NCAT, sclera anicteric, PERRL, EOMI. Neck: Supple, no significant jugular venous distention, Lungs: Decreased air entry at the bases, fair respiratory effort, no Wheeze or Rales. Heart: Regular rate and rhythm, normal S1/S2, no murmurs. Abdomen: soft, nontender, nondistended. Normoactive bowel sounds. Morbid obesity, / Rectal: Refused and deferred. Extremities: No Cyanosis , clubbing or edema. Neuro: A&O x 3, Able to move all extremities Skin: warm, no rashes or lesions Psych: Normal mood and affect Assessment/Plan Assessment/Plan 1. Chest pain possible acute coronary syndrome versus GI etiology such as peptic ulcer disease versus GERD. 2. History of aortic stenosis as post of aortic valve replacement 2. 3. Diabetes type 2. 4. Hypertension. 5. Hypercholesterolemia. 6. History of CVA with the left side of weakness. 7. Anemia. 8. Morbid obesity. TREATMENT: 1. Chest pain/aortic stenosis. A Cardiology consultation has beenobtained with Dr. Geraldo Daley. Serial troponin levels will be performed. An echocardiogram is pending. 2. Diabetes type 2. NovoLog sliding scale has been instituted. 3. Hypertension. Continue losartan as above. 4. Hypercholesterolemia. Continue pravastatin as above. GI consultation with DVT prophylaxis: Xarelto CODE STATUS: Full code. PT mobility, ambulation. Humberto Williamson MD Mar 15, 2020 15:51
[2020-03-15 16:00] VITALS: BP 118/42
--- NOTE | 2020-03-15 17:22 | General Progress Note ---
Assessment/Plan Assessment/Plan: GI Consult Assessment - atypical chest/(L) shoulder pain, possibly musculoskeletal - transient nausea, ? reflux - now resolved - s/p EGD/colon about 1.5 years ago - anemia - DM - HTN - s/p AVR for - high cholesterol - CVA Recommendations - follow symptoms - check stool OB - PO as tolerated - no GI endoscopy planned, unless OB (+) Thank you Quinn Sloan MD Subjective Allergies: Coded Allergies: TRAMADOL (Verified Allergy, Unknown, 03/14/20) Objective Last 24 Hour Vital Signs Date Time Temp Pulse Resp B/P (MAP) Pulse Ox O2 Delivery O2 Flow Rate FiO2 03/15/20 16:00 97.5 63 19 118/42 (67) 95 03/15/20 15:48 63 03/15/20 12:00 97.9 71 20 137/50 (79) 96 03/15/20 11:31 75 03/15/20 09:00 Room Air 03/15/20 08:00 98.8 72 18 131/78 (95) 97 03/15/20 07:55 73 03/15/20 07:00 97 Room Air 03/15/20 04:00 98.2 81 21 123/54 (77) 96 03/15/20 04:00 67 03/15/20 00:00 98.7 77 20 147/55 (85) 97 03/15/20 00:00 66 03/14/20 21:00 Room Air 03/14/20 20:04 96 Room Air 03/14/20 20:00 99.1 74 21 141/61 (87) 95 03/14/20 20:00 69 03/14/20 18:42 77 03/14/20 18:05 99.5 Intake and Output 03/14/20 03/15/20 19:00 07:00 Intake Total 0 ml 400 ml Output Total 550 ml Balance 0 ml -150 ml Intake Oral 0 ml 400 ml Output Urine Total 550 ml # Voids 2 Laboratory Tests 03/14/20 21:20: Troponin I 0.010 03/15/20 02:30: Troponin I 0.006, White Blood Count 7.6, Red Blood Count 3.49L, Hemoglobin 9.4L , Hematocrit 30.2L, Mean Corpuscular Volume 86, Mean Corpuscular Hemoglobin 27.1 , Mean Corpuscular Hemoglobin Concent 31.3L, Red Cell Distribution Width 13.4, Platelet Count 149L, Mean Platelet Volume 7.3, Neutrophils (%) (Auto) 38.4L, Lymphocytes (%) (Auto) 52.0H, Monocytes (%) (Auto) 5.6, Eosinophils (%) (Auto) 2.6, Basophils (%) (Auto) 1.3, C-Reactive Protein, Quantitative 1.5H, Triglycerides Level 176H, Cholesterol Level 168, LDL Cholesterol 88, HDL Cholesterol 57, Cholesterol/HDL Ratio 2.9L, Thyroid Stimulating Hormone (TSH) 1.636 03/15/20 04:30: Prothrombin Time 10.6, Prothromb Time International Ratio 1.0, Activated Partial Thromboplast Time 26 Height (Feet): 5 Height (Inches): 3.00 Weight (Pounds): 160 Quinn Sloan MD Mar 15, 2020 17:22
--- NOTE | 2020-03-15 19:13 | Cardiology Progress Note ---
Assessment/Plan Assessment/Plan 1. Chest pain probable chest wall tenderness 2. History of aortic valve replacement x2. 3. History of CVA. 4. Diabetes mellitus. 5. History of hypertension. 6. History of hyperlipidemia. 7. Low-grade fevers. 8. Left-sided weakness vs pain induced decresed motion echo noted normal wall motion no effusion has pulm htn ekg not change trop neg despite several days of pain venous duplex will be ordered gi noted pin reproducible on the chest wall palpation and on moment of the left arm no further cardiac salgado at this time out pt fu Subjective Cardiovascular: Reports: chest pain; Denies: lightheadedness, palpitations Respiratory: Denies: orthopnea, shortness of breath Gastrointestinal/Abdominal: Denies: abdominal pain Genitourinary: Denies: burning Objective Last 24 Hour Vital Signs Date Time Temp Pulse Resp B/P (MAP) Pulse Ox O2 Delivery O2 Flow Rate FiO2 03/15/20 16:00 97.5 63 19 118/42 (67) 95 03/15/20 15:48 63 03/15/20 12:00 97.9 71 20 137/50 (79) 96 03/15/20 11:31 75 03/15/20 09:00 Room Air 03/15/20 08:00 98.8 72 18 131/78 (95) 97 03/15/20 07:55 73 03/15/20 07:00 97 Room Air 03/15/20 04:00 98.2 81 21 123/54 (77) 96 03/15/20 04:00 67 03/15/20 00:00 98.7 77 20 147/55 (85) 97 03/15/20 00:00 66 03/14/20 21:00 Room Air 03/14/20 20:04 96 Room Air 03/14/20 20:00 99.1 74 21 141/61 (87) 95 03/14/20 20:00 69 General Appearance: no apparent distress, alert Cardiovascular: normal rate, other - chest wall tender to palpayion Abdomen: non tender, soft Extremities: no swelling Intake and Output 03/14/20 03/15/20 19:00 07:00 Intake Total 0 ml 400 ml Output Total 550 ml Balance 0 ml -150 ml Intake Oral 0 ml 400 ml Output Urine Total 550 ml # Voids 2 Laboratory Tests Test 6/11/20 21:20 03/15/20 02:30 03/15/20 04:30 Troponin I 0.010 ng/mL (0.000-0.056) 0.006 ng/mL (0.000-0.056) White Blood Count 7.6 K/UL (4.8-10.8) Red Blood Count 3.49 M/UL (4.20-5.40) L Hemoglobin 9.4 G/DL (12.0-16.0) L Hematocrit 30.2 % (37.0-47.0) L Mean Corpuscular Volume 86 FL (80-99) Mean Corpuscular Hemoglobin 27.1 PG (27.0-31.0) Mean Corpuscular Hemoglobin Concent 31.3 G/DL (32.0-36.0) L Red Cell Distribution Width 13.4 % (11.6-14.8) Platelet Count 149 K/UL (150-450) L Mean Platelet Volume 7.3 FL (6.5-10.1) Neutrophils (%) (Auto) 38.4 % (45.0-75.0) L Lymphocytes (%) (Auto) 52.0 % (20.0-45.0) H Monocytes (%) (Auto) 5.6 % (1.0-10.0) Eosinophils (%) (Auto) 2.6 % (0.0-3.0) Basophils (%) (Auto) 1.3 % (0.0-2.0) C-Reactive Protein, Quantitative 1.5 mg/dL (0.00-0.90) H Triglycerides Level 176 MG/DL (30-150) H Cholesterol Level 168 MG/DL (< 200) LDL Cholesterol 88 mg/dL (<100) HDL Cholesterol 57 MG/DL (40-60) Cholesterol/HDL Ratio 2.9 (3.3-4.4) L Thyroid Stimulating Hormone (TSH) 1.636 uiU/mL (0.358-3.740) Prothrombin Time 10.6 SEC (9.30-11.50) Prothromb Time International Ratio 1.0 (0.9-1.1) Activated Partial Thromboplast Time 26 SEC (23-33) Geraldo Daley MD Mar 15, 2020 19:13
[2020-03-15 20:00] VITALS: BP 118/45
[2020-03-15] MEDS ORDERED: Heparin 5000 units/ml inj SUBQ SCH (21:00)
--- NOTE | 2020-03-15 21:15 | Consultation ---
DATE OF CONSULTATION: 03/15/2020 GASTROENTEROLOGY CONSULTATION CONSULTING PHYSICIAN: Quinn Sloan MD. CHIEF COMPLAINT: I was asked to see this patient by Dr. Humberto Williamson for evaluation of atypical chest pain. HISTORY OF PRESENT ILLNESS: Patient is a 69-year-old woman who comes into the hospital due to atypical chest pain. Patient states that for the past night or 2, she is having some upper chest discomfort and also left shoulder discomfort. The left shoulder pain gets worse with manipulation of the left arm and shoulder. There is some transient nausea, but no vomiting. The nausea has now resolved and she is tolerating her oral diet well. There is no abdominal pain or vomiting. She does state that she had an endoscopy and colonoscopy about a year and a half ago at an outside hospital and the results were unremarkable. She has no constipation or diarrhea or blood in her stools. She is not aware of her blood results or history of anemia, but she does have some anemia on this admission. She is on a blood thinner because of valvular heart disease. She has had her gallbladder and appendix removed in the past. PAST MEDICAL HISTORY: History of type 2 diabetes, hypertension, hypercholesterolemia, aortic valve stenosis status post valve replacement, status post cholecystectomy, status post appendectomy, status post cataract surgery, status post knee replacements. FAMILY HISTORY: Noncontributory. 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 She smoked many years ago, but she quit. She does not drink alcohol. REVIEW OF SYSTEMS: Otherwise negative. ALLERGIES: Tramadol. PHYSICAL EXAMINATION: GENERAL: Pleasant woman, seen in her room. HEENT: Normocephalic, atraumatic. Sclerae anicteric. Oropharynx clear. NECK: Supple. CHEST: Clear to auscultation. CARDIOVASCULAR: Revealed a regular rate. ABDOMEN: Soft and obese with good bowel sounds. There is no organomegaly. No obvious tenderness. EXTREMITIES: Revealed no edema. There was some degree of immobility of the left shoulder and there was pain with some manipulation of the left arm and shoulder. This reproduced at least the left shoulder part of the patient's pain. NEUROLOGIC: Deferred at this time. LABORATORY DATA: Noted. ASSESSMENT: This patient presents with somewhat of an atypical discomfort in the chest and the left shoulder area, which could possibly be orthopedic in origin given the change with motion. There is some degree of nausea that she felt along with this discomfort, but the nausea since resolved and she is tolerating her oral intake well. Since she is somewhat asymptomatic at this time, I would follow her conservatively. She has already had an endoscopy and colonoscopy only a year and a half ago and therefore no urgent procedures are indicated. She does have some anemia and therefore I will check her stool for occult blood. If she is positive, then a consideration can be made to repeat endoscopy and colonoscopy for that finding. RECOMMENDATIONS: Per above discussion and per orders written in the chart. Thank you for asking me to participate in the care of this patient. Quinn Sloan M.D. DR: NENO JOB#: [id number] CC:
[2020-03-16] VITALS: BP 128/54
[2020-03-16 04:00] VITALS: BP 134/76
[2020-03-16 05:31] LABS: BASOPHILS % (AUTO) 0.6 % (0.0-2.0); EOSINOPHILS % (AUTO) 1.4 % (0.0-3.0); HEMOGLOBIN 10.3 G/DL (12.0-16.0); LYMPHOCYTES % (AUTO) 29.5 % (20.0-45.0); MEAN CORPUSCULAR VOLUME 87 FL (80-99); MONOCYTES % (AUTO) 5.6 % (1.0-10.0); NEUTROPHILS % (AUTO) 62.9 % (45.0-75.0); PLATELET COUNT 197 K/UL (150-450); RED BLOOD COUNT 3.81 M/UL (4.20-5.40); RED CELL DISTRIBUTION WIDTH 13.2 % (11.6-14.8); WHITE BLOOD COUNT 9.7 K/UL (4.8-10.8)
[2020-03-16 05:49] LABS: LACTATE DEHYDROGENASE 229 U/L (81-234)
[2020-03-16] MEDS: NovoLOG Insulin Flexpen SUBQ SCH ×4 (05:49→20:39)
[2020-03-16 07:00] LABS: % IRON SATURATION 12 % (15-50); IRON 37 ug/dL (50-175); TOTAL IRON BINDING CAPACITY 312 ug/dL (250-450)
--- NOTE | 2020-03-16 07:41 | Pulmonology Progress Note ---
Subjective ROS Limited/Unobtainable: No Interval Events: still c/o local chest pain, tender on touch Allergies: Coded Allergies: TRAMADOL (Verified Allergy, Unknown, 03/14/20) Subjective on RA no signs of resp distress, no SOB no CP Objective Last 24 Hour Vital Signs Date Time Temp Pulse Resp B/P (MAP) Pulse Ox O2 Delivery O2 Flow Rate FiO2 03/16/20 04:00 71 03/16/20 04:00 100.0 79 21 134/76 (95) 96 03/16/20 00:22 95 Room Air 03/16/20 00:21 95 Room Air 03/16/20 00:00 98.8 68 18 128/54 (78) 95 03/16/20 00:00 70 03/15/20 21:00 Room Air 03/15/20 20:00 63 03/15/20 20:00 98.5 68 19 118/45 (69) 94 03/15/20 16:00 97.5 63 19 118/42 (67) 95 03/15/20 15:48 63 03/15/20 12:00 97.9 71 20 137/50 (79) 96 03/15/20 11:31 75 03/15/20 09:00 Room Air 03/15/20 08:00 98.8 72 18 131/78 (95) 97 03/15/20 07:55 73 Intake and Output 03/15/20 03/16/20 19:00 07:00 Intake Total 480 ml Output Total 1300 ml 1300 ml Balance -820 ml -1300 ml Intake Oral 480 ml Output Urine Total 1300 ml 1300 ml # Voids 1 General Appearance: WD/WN HEENT: normocephalic, atraumatic Respiratory: chest wall non-tender, lungs clear Cardiovascular: normal peripheral pulses, normal rate Abdomen: normal bowel sounds, soft, non tender Extremities: pedal pulses normal Skin: no rash Neurologic: no motor/sensory deficits, alert, oriented x 3, responsive Musculoskeletal: normal muscle bulk Laboratory Tests 03/16/20 05:17: White Blood Count 9.7, Red Blood Count 3.81L, Hemoglobin 10.3L, Hematocrit 33.0L , Mean Corpuscular Volume 87, Mean Corpuscular Hemoglobin 27.0, Mean Corpuscular Hemoglobin Concent 31.2L, Red Cell Distribution Width 13.2, Platelet Count 197, Mean Platelet Volume 6.7, Neutrophils (%) (Auto) 62.9, Lymphocytes (%) (Auto) 29.5, Monocytes (%) (Auto) 5.6, Eosinophils (%) (Auto) 1.4, Basophils (%) (Auto) 0.6, Erythrocyte Sedimentation Rate [Pending], Reticulocyte Count [Pending], Prothrombin Time 10.7, Prothromb Time International Ratio 1.0, Activated Partial Thromboplast Time 25, Iron Level 37L , Total Iron Binding Capacity 312, Percent Iron Saturation 12L, Unsaturated Iron Binding 275, Lactate Dehydrogenase 229, Troponin I 0.003, Carcinoembryonic Antigen [Pending], Vitamin B12 Level > 2000H, Folate 6.0L Current Medications Medications (Trade) Dose Ordered Sig/Ran Route PRN Reason Start Time Stop Time Status Last Admin Dose Admin Acetaminophen (Tylenol) 650 mg Q4H PRN ORAL FEVER 03/14/20 14:15 04/13/20 14:14 03/14/20 17:35 Albuterol/ Ipratropium (Albuterol/ Ipratropium) 3 ml Q4H PRN HHN Shortness of Breath 03/14/20 14:15 03/19/20 14:14 Aspirin (ASA) 162 mg DAILY ORAL 03/15/20 09:00 04/29/20 08:59 03/15/20 08:53 Dextrose (Dextrose 50%) 25 ml Q30M PRN IV Hypoglycemia 03/14/20 14:30 06/12/20 14:29 Dextrose (Dextrose 50%) 50 ml Q30M PRN IV Hypoglycemia 03/14/20 14:30 06/12/20 14:29 Diltiazem HCl (Cardizem) 10 mg Q1H PRN IV heart rate more than 120, 03/14/20 14:15 04/13/20 14:14 Enalaprilat (Vasotec) 2.5 mg Q6H PRN IV sbp more than 160 03/14/20 14:15 04/13/20 14:14 Gabapentin (Neurontin) 300 mg THREE TIMES A DAY ORAL 03/15/20 13:00 04/14/20 12:59 03/15/20 17:00 Insulin Aspart (NovoLOG) BEFORE MEALS AND HS SUBQ 03/14/20 16:30 06/12/20 16:29 03/16/20 05:49 Losartan Potassium (Cozaar) 25 mg DAILY ORAL 03/16/20 09:00 04/15/20 08:59 Morphine Sulfate (Morphine Sulfate) 2 mg Q4H PRN IVP Moderate Pain (Pain Scale 4-6) 03/14/20 17:30 03/21/20 17:29 03/15/20 22:13 Morphine Sulfate (Morphine Sulfate) 4 mg Q4H PRN IVP Severe Pain (Pain Scale 7-10) 03/14/20 17:30 03/21/20 17:29 03/15/20 13:11 Nitroglycerin (Ntg) 0.4 mg Q5M PRN SL Prn Chest Pain 03/14/20 14:15 04/13/20 14:14 Ondansetron HCl (Zofran) 4 mg Q6H PRN IVP Nausea & Vomiting 03/14/20 14:15 04/13/20 14:14 Pantoprazole (Protonix) 40 mg EVERY 12 HOURS ORAL 03/15/20 13:00 04/14/20 12:59 03/15/20 20:19 Polyethylene Glycol (Miralax) 17 gm DAILYPRN PRN ORAL Constipation 03/14/20 14:15 04/13/20 14:14 Rivaroxaban (Xarelto) 10 mg DAILY ORAL 03/16/20 09:00 06/14/20 08:59 Sitagliptin Phosphate (Januvia) 25 mg DAILY ORAL 03/16/20 09:00 04/15/20 08:59 Sucralfate (Carafate) 1 gm FOUR TIMES A DAY ORAL 03/15/20 13:00 06/13/20 12:59 03/15/20 20:20 Temazepam (Restoril) 15 mg HSPRN PRN ORAL Insomnia 03/14/20 14:15 03/21/20 14:14 Assessment/Plan Assessment/Plan ASSESSMENT Chest pain , r/o ACS Probably atypical CP, likely MS Hx of , s/p AVR status post aortic valve replacement HTN HLD Chronic anticoagulation 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 DM Anemia Moderate pulmonary hypertension PLAN of CARE tele serial troponin negative ,EKG revealed no acute ischemic changes ; patient was ruled out for acute PA Echo with pEF 55% no evidence of WMA; RVSP 50 c/w moderate pulmonary HTN a/PLT with aspirin lipid panel with stable LDH and total cholesterol ; TG 176 BP management with ARB CP possibly MS, as aggravated on palpation of left sided chest wall, Venous Duplex BLE just completed, result pending patient on chronic a/c for unclear reason monitor H&H with goal to keep Hgb > 7 st OB GI on the case ; EGD and colon done 1.5 yrs ago no GI procedure planned ,mas per GI, unless stool OB positive GI prophylaxis bowel regimen BS management with Januvia and SSI O2 to keep sat above 92 oulmonary toilet CXR showed finings with possible bronchitis versus senescent changes pain management supportive care case discussed and evaluated by supervising physician Rima Velazquez NP Mar 16, 2020 07:41
[2020-03-16 08:00] VITALS: BP 114/40
[2020-03-16] MEDS: sitaGLIPtin 25mg tab ORAL SCH (09:18)
[2020-03-16] MEDS: Aspirin Baby 81mg ORAL SCH (09:18)
[2020-03-16] MEDS: Sucralfate 1gm tab ORAL SCH ×4 (09:18→20:42)
[2020-03-16] MEDS: Losartan 25mg tab ORAL SCH (09:18)
[2020-03-16] MEDS: Xarelto 10mg tab ORAL SCH (09:19)
--- NOTE | 2020-03-16 10:04 | Diagnostic Imaging Report ---
EXAM: US Duplex Bilateral Lower Extremities Veins CLINICAL HISTORY: PULM HTN TECHNIQUE: Real-time duplex ultrasound scan of the bilateral lower extremity veins integrating B-mode two-dimensional vascular structure, Doppler spectral analysis, color flow Doppler imaging and compression. COMPARISON: No relevant prior studies available. FINDINGS: Right deep veins: Unremarkable. No DVT in the right common femoral, femoral, proximal deep femoral or popliteal veins. The veins demonstrate normal color flow, are normally compressible, with normal phasic flow and/or augmentation response. Right superficial veins: Unremarkable. No thrombus in the visualized right great saphenous vein. Left deep veins: Unremarkable. No DVT in the left common femoral, femoral, proximal deep femoral or popliteal veins. The veins demonstrate normal color flow, are normally compressible, with normal phasic flow and/or augmentation response. Left superficial veins: Unremarkable. No thrombus in the visualized left great saphenous vein. Soft tissues: No acute findings. No popliteal cyst. IMPRESSION: No evidence of DVT in the lower extremities.
--- NOTE | 2020-03-16 10:38 | General Progress Note ---
Assessment/Plan Assessment/Plan: 1. Chest pain. 2. History of aortic valve replacement x2. 3. History of CVA. 4. Diabetes mellitus. 5. History of hypertension. 6. History of hyperlipidemia. 7. Low-grade fevers. 8. Left-sided weakness. 9. iron def anemia 10 folate def iv iron folic acid supplement stool ob fu cardiology GI procedures if needed Subjective ROS Limited/Unobtainable: Yes Allergies: Coded Allergies: TRAMADOL (Verified Allergy, Unknown, 03/14/20) Objective Last 24 Hour Vital Signs Date Time Temp Pulse Resp B/P (MAP) Pulse Ox O2 Delivery O2 Flow Rate FiO2 03/16/20 10:20 94 Room Air 21 03/16/20 09:18 114/40 03/16/20 08:00 72 03/16/20 08:00 97.9 70 19 114/40 (64) 95 03/16/20 04:00 71 03/16/20 04:00 100.0 79 21 134/76 (95) 96 03/16/20 00:22 95 Room Air 03/16/20 00:21 95 Room Air 03/16/20 00:00 98.8 68 18 128/54 (78) 95 03/16/20 00:00 70 03/15/20 21:00 Room Air 03/15/20 20:00 63 03/15/20 20:00 98.5 68 19 118/45 (69) 94 03/15/20 16:00 97.5 63 19 118/42 (67) 95 03/15/20 15:48 63 03/15/20 12:00 97.9 71 20 137/50 (79) 96 03/15/20 11:31 75 Intake and Output 03/15/20 03/16/20 19:00 07:00 Intake Total 480 ml Output Total 1300 ml 1300 ml Balance -820 ml -1300 ml Intake Oral 480 ml Output Urine Total 1300 ml 1300 ml # Voids 1 Laboratory Tests 03/16/20 05:17: White Blood Count 9.7, Red Blood Count 3.81L, Hemoglobin 10.3L, Hematocrit 33.0L , Mean Corpuscular Volume 87, Mean Corpuscular Hemoglobin 27.0, Mean Corpuscular Hemoglobin Concent 31.2L, Red Cell Distribution Width 13.2, Platelet Count 197, Mean Platelet Volume 6.7, Neutrophils (%) (Auto) 62.9, Lymphocytes (%) (Auto) 29.5, Monocytes (%) (Auto) 5.6, Eosinophils (%) (Auto) 1.4, Basophils (%) (Auto) 0.6, Neutrophils % (Manual) [Pending], Lymphocytes % ( Manual) [Pending], Platelet Estimate [Pending], Platelet Morphology [Pending], Erythrocyte Sedimentation Rate 69H, Reticulocyte Count [Pending], Prothrombin Time 10.7, Prothromb Time International Ratio 1.0, Activated Partial Thromboplast Time 25, Iron Level 37L, Total Iron Binding Capacity 312, Percent Iron Saturation 12L, Unsaturated Iron Binding 275, Lactate Dehydrogenase 229, Troponin I 0.003, Carcinoembryonic Antigen [Pending], Vitamin B12 Level > 2000H , Folate 6.0L Height (Feet): 5 Height (Inches): 3.00 Weight (Pounds): 160 General Appearance: alert EENT: normal ENT inspection Neck: supple Cardiovascular: normal rate Respiratory/Chest: lungs clear Abdomen: normal bowel sounds, non tender, soft Extremities: non-tender Alfonso Sam MD Mar 16, 2020 10:38
--- NOTE | 2020-03-16 10:58 | Internal Med Progress Note ---
Subjective Date of Service: Mar 16, 2020 Physician Name Dimitris Frederick Attending Physician Humberto Williamson MD Current Medications Medications (Trade) Dose Ordered Sig/Ran Route PRN Reason Start Time Stop Time Status Last Admin Dose Admin Acetaminophen (Tylenol) 650 mg Q4H PRN ORAL FEVER 03/14/20 14:15 04/13/20 14:14 03/14/20 17:35 Albuterol/ Ipratropium (Albuterol/ Ipratropium) 3 ml Q4H PRN HHN Shortness of Breath 03/14/20 14:15 03/19/20 14:14 Aspirin (ASA) 162 mg DAILY ORAL 03/15/20 09:00 04/29/20 08:59 03/16/20 09:18 Dextrose (Dextrose 50%) 25 ml Q30M PRN IV Hypoglycemia 03/14/20 14:30 06/12/20 14:29 Dextrose (Dextrose 50%) 50 ml Q30M PRN IV Hypoglycemia 03/14/20 14:30 06/12/20 14:29 Diltiazem HCl (Cardizem) 10 mg Q1H PRN IV heart rate more than 120, 03/14/20 14:15 04/13/20 14:14 Enalaprilat (Vasotec) 2.5 mg Q6H PRN IV sbp more than 160 03/14/20 14:15 04/13/20 14:14 Folic Acid (Folate) 1 mg DAILY ORAL 03/17/20 09:00 04/16/20 08:59 Gabapentin (Neurontin) 300 mg THREE TIMES A DAY ORAL 03/15/20 13:00 04/14/20 12:59 03/16/20 09:18 Insulin Aspart (NovoLOG) BEFORE MEALS AND HS SUBQ 03/14/20 16:30 06/12/20 16:29 03/16/20 05:49 Iron Sucrose 100 mg/Sodium Chloride 60 ml @ 240 mls/hr BEDTIME IV 03/16/20 21:00 03/20/20 21:14 Losartan Potassium (Cozaar) 25 mg DAILY ORAL 03/16/20 09:00 04/15/20 08:59 03/16/20 09:18 Morphine Sulfate (Morphine Sulfate) 2 mg Q4H PRN IVP Moderate Pain (Pain Scale 4-6) 03/14/20 17:30 03/21/20 17:29 03/15/20 22:13 Morphine Sulfate (Morphine Sulfate) 4 mg Q4H PRN IVP Severe Pain (Pain Scale 7-10) 03/14/20 17:30 03/21/20 17:29 03/15/20 13:11 Nitroglycerin (Ntg) 0.4 mg Q5M PRN SL Prn Chest Pain 03/14/20 14:15 04/13/20 14:14 Ondansetron HCl (Zofran) 4 mg Q6H PRN IVP Nausea & Vomiting 03/14/20 14:15 04/13/20 14:14 Pantoprazole (Protonix) 40 mg EVERY 12 HOURS ORAL 03/15/20 13:00 04/14/20 12:59 03/16/20 09:18 Polyethylene Glycol (Miralax) 17 gm DAILYPRN PRN ORAL Constipation 03/14/20 14:15 04/13/20 14:14 Rivaroxaban (Xarelto) 10 mg DAILY ORAL 03/16/20 09:00 06/14/20 08:59 03/16/20 09:19 Sitagliptin Phosphate (Januvia) 25 mg DAILY ORAL 03/16/20 09:00 04/15/20 08:59 03/16/20 09:18 Sucralfate (Carafate) 1 gm FOUR TIMES A DAY ORAL 03/15/20 13:00 06/13/20 12:59 03/16/20 09:18 Temazepam (Restoril) 15 mg HSPRN PRN ORAL Insomnia 03/14/20 14:15 03/21/20 14:14 Allergies: Coded Allergies: TRAMADOL (Verified Allergy, Unknown, 03/14/20) ROS Limited/Unobtainable: No Constitutional: Reports: no symptoms HEENT: Reports: no symptoms Cardiovascular: Reports: chest pain Respiratory: Reports: no symptoms Gastrointestinal/Abdominal: Reports: no symptoms Genitourinary: Reports: no symptoms Neurologic/Psychiatric: Reports: no symptoms Subjective 69 YO F admitted with chest pain. Cover for Int Gilbert Williamson Objective Last Vital Signs Date Time Temp Pulse Resp B/P (MAP) Pulse Ox O2 Delivery O2 Flow Rate FiO2 03/16/20 10:20 94 Room Air 21 03/16/20 09:18 114/40 6/13/20 08:00 72 03/16/20 08:00 97.9 19 Laboratory Tests Test 03/16/20 05:17 White Blood Count 9.7 K/UL (4.8-10.8) Red Blood Count 3.81 M/UL (4.20-5.40) L Hemoglobin 10.3 G/DL (12.0-16.0) L Hematocrit 33.0 % (37.0-47.0) L Mean Corpuscular Volume 87 FL (80-99) Mean Corpuscular Hemoglobin 27.0 PG (27.0-31.0) Mean Corpuscular Hemoglobin Concent 31.2 G/DL (32.0-36.0) L Red Cell Distribution Width 13.2 % (11.6-14.8) Platelet Count 197 K/UL (150-450) Mean Platelet Volume 6.7 FL (6.5-10.1) Neutrophils (%) (Auto) 62.9 % (45.0-75.0) Lymphocytes (%) (Auto) 29.5 % (20.0-45.0) Monocytes (%) (Auto) 5.6 % (1.0-10.0) Eosinophils (%) (Auto) 1.4 % (0.0-3.0) Basophils (%) (Auto) 0.6 % (0.0-2.0) Neutrophils % (Manual) Pending Lymphocytes % (Manual) Pending Platelet Estimate Pending Platelet Morphology Pending Erythrocyte Sedimentation Rate 69 MM/HR (0-30) H Reticulocyte Count Pending Prothrombin Time 10.7 SEC (9.30-11.50) Prothromb Time International Ratio 1.0 (0.9-1.1) Activated Partial Thromboplast Time 25 SEC (23-33) Iron Level 37 ug/dL (50-175) L Total Iron Binding Capacity 312 ug/dL (250-450) Percent Iron Saturation 12 % (15-50) L Unsaturated Iron Binding 275 ug/dL (112-346) Lactate Dehydrogenase 229 U/L (81-234) Troponin I 0.003 ng/mL (0.000-0.056) Carcinoembryonic Antigen Pending Vitamin B12 Level > 2000 PG/ML (193-986) H Folate 6.0 NG/ML (8.6-58.9) L Intake and Output 03/15/20 03/16/20 19:00 07:00 Intake Total 480 ml Output Total 1300 ml 1300 ml Balance -820 ml -1300 ml Intake Oral 480 ml Output Urine Total 1300 ml 1300 ml # Voids 1 Objective PHYSICAL EXAMINATION: GENERAL: Patient is well-developed, well-nourished female, in no apparent distress. HEENT: Eyes pupils are equal and responsive to light and accommodation. Extraocular movements are intact. NECK: Supple. No lymphadenopathy. CHEST: Lungs are clear to auscultation bilaterally. No wheezes or rales. CARDIOVASCULAR: Click is heard. S1, S2 are normal without murmurs, rubs, or gallops. ABDOMEN: Soft, nontender, nondistended. Positive bowel sounds. No evidence of hepatosplenomegaly. Currently, no rebound or guarding noted. EXTREMITIES: Negative for clubbing, cyanosis, or edema. RECTAL/GENITAL: Not performed. NEUROLOGIC: Cranial nerves II to XII grossly intact without focal deficits. Motor strength is 5/5 bilaterally. Deep tendon reflexes are 2+ plantar. Assessment/Plan Assessment/Plan ASSESSMENT: This is a 69-year-old female. 1. Chest pain. 2. History of aortic stenosis (AVR X2) 3. Diabetes type 2. 4. Hypertension. 5. Hypercholesterolemia. 6. Iron deficiency anemia TREATMENT: 1. Chest pain/aortic stenosis. On Xarelto. A Cardiology consultation has beenobtained with Dr. Geraldo Daley. Serial troponin levels are negative. LVEF=55% 2. Diabetes type 2. Continue Januvia and NovoLog sliding scale. 3. Hypertension. Continue losartan as above. 4. Hypercholesterolemia. Continue pravastatin as above. 5. GI workup in progress. Dimitris Frederick MD Mar 16, 2020 10:58
[2020-03-16 12:00] VITALS: BP 108/49
[2020-03-16] MEDS: Morphine Sulfate 2mg/ml Inj(IV/IM USE ONLY) IVP PRN (13:31)
[2020-03-16] MEDS: Miralax 17gm pkt ORAL PRN (15:47)
[2020-03-16 16:00] VITALS: BP 113/72
[2020-03-16 20:00] VITALS: BP 127/67
--- NOTE | 2020-03-16 20:12 | Cardiology Progress Note ---
Assessment/Plan Assessment/Plan atypical chest pain post AVR no changes, stable Subjective Subjective Coverage for Dr Daley The patient feels fine, she has mild chest discomfort at rest, but it is much better Objective Last 24 Hour Vital Signs Date Time Temp Pulse Resp B/P (MAP) Pulse Ox O2 Delivery O2 Flow Rate FiO2 03/16/20 19:31 96 Room Air 21 03/16/20 18:05 99.7 03/16/20 16:00 100.8 73 18 113/72 (86) 95 03/16/20 16:00 71 03/16/20 14:01 97.9 03/16/20 12:00 72 03/16/20 12:00 98.8 71 17 108/49 (68) 93 03/16/20 10:20 94 Room Air 21 03/16/20 09:18 114/40 03/16/20 09:00 Room Air 03/16/20 08:00 72 03/16/20 08:00 97.9 70 19 114/40 (64) 95 03/16/20 04:00 71 03/16/20 04:00 100.0 79 21 134/76 (95) 96 03/16/20 00:22 95 Room Air 03/16/20 00:21 95 Room Air 03/16/20 00:00 98.8 68 18 128/54 (78) 95 03/16/20 00:00 70 03/15/20 21:00 Room Air General Appearance: no apparent distress EENT: PERRL/EOMI Neck: no JVD Rhythm: NSR Cardiovascular: regular rhythm Respiratory/Chest: normal breath sounds Abdomen: non tender Intake and Output 03/15/20 03/16/20 19:00 07:00 Intake Total 480 ml Output Total 1300 ml 1300 ml Balance -820 ml -1300 ml Intake Oral 480 ml Output Urine Total 1300 ml 1300 ml # Voids 1 Laboratory Tests Test 03/16/20 05:17 White Blood Count 9.7 K/UL (4.8-10.8) Red Blood Count 3.81 M/UL (4.20-5.40) L Hemoglobin 10.3 G/DL (12.0-16.0) L Hematocrit 33.0 % (37.0-47.0) L Mean Corpuscular Volume 87 FL (80-99) Mean Corpuscular Hemoglobin 27.0 PG (27.0-31.0) Mean Corpuscular Hemoglobin Concent 31.2 G/DL (32.0-36.0) L Red Cell Distribution Width 13.2 % (11.6-14.8) Platelet Count 197 K/UL (150-450) Mean Platelet Volume 6.7 FL (6.5-10.1) Neutrophils (%) (Auto) 62.9 % (45.0-75.0) Lymphocytes (%) (Auto) 29.5 % (20.0-45.0) Monocytes (%) (Auto) 5.6 % (1.0-10.0) Eosinophils (%) (Auto) 1.4 % (0.0-3.0) Basophils (%) (Auto) 0.6 % (0.0-2.0) Differential Total Cells Counted 100 Neutrophils % (Manual) 66 % (45-75) Lymphocytes % (Manual) 28 % (20-45) Monocytes % (Manual) 5 % (1-10) Eosinophils % (Manual) 1 % (0-3) Basophils % (Manual) 0 % (0-2) Band Neutrophils 0 % (0-8) Platelet Estimate Adequate Platelet Morphology Normal Hypochromasia 1+ Erythrocyte Sedimentation Rate 69 MM/HR (0-30) H Reticulocyte Count 0.9 % (0.5-2.0) Prothrombin Time 10.7 SEC (9.30-11.50) Prothromb Time International Ratio 1.0 (0.9-1.1) Activated Partial Thromboplast Time 25 SEC (23-33) Iron Level 37 ug/dL (50-175) L Total Iron Binding Capacity 312 ug/dL (250-450) Percent Iron Saturation 12 % (15-50) L Unsaturated Iron Binding 275 ug/dL (112-346) Lactate Dehydrogenase 229 U/L (81-234) Troponin I 0.003 ng/mL (0.000-0.056) Carcinoembryonic Antigen Pending Vitamin B12 Level > 2000 PG/ML (193-986) H Folate 6.0 NG/ML (8.6-58.9) L Sienna Marsh MD Mar 16, 2020 20:12
[2020-03-16] MEDS: Iron Sucrose 100 MG in NS 55 ML IV SCH (20:42)
[2020-03-17] VITALS: BP 117/51
[2020-03-17] MEDS: Morphine Sulfate 2mg/ml Inj(IV/IM USE ONLY) IVP PRN ×2 (01:01→09:03)
[2020-03-17 04:00] VITALS: BP 126/58
[2020-03-17] MEDS: NovoLOG Insulin Flexpen SUBQ SCH ×4 (06:11→21:24)
[2020-03-17] MEDS: Miralax 17gm pkt ORAL PRN (06:15)
--- NOTE | 2020-03-17 07:37 | Pulmonology Progress Note ---
Subjective ROS Limited/Unobtainable: No Interval Events: Allergies: Coded Allergies: TRAMADOL (Verified Allergy, Unknown, 03/14/20) Subjective on RA no signs of resp distress, no SOB no CP left wall CP, intermittent Objective Last 24 Hour Vital Signs Date Time Temp Pulse Resp B/P (MAP) Pulse Ox O2 Delivery O2 Flow Rate FiO2 03/17/20 04:00 98.1 75 22 126/58 (80) 93 03/17/20 04:00 71 03/17/20 00:00 99.9 74 22 117/51 (73) 95 03/17/20 00:00 72 03/16/20 21:00 Room Air 03/16/20 20:00 81 03/16/20 20:00 100.2 79 22 127/67 (87) 97 03/16/20 19:31 96 Room Air 21 03/16/20 18:05 99.7 03/16/20 16:00 100.8 73 18 113/72 (86) 95 03/16/20 16:00 71 03/16/20 14:01 97.9 03/16/20 12:00 72 03/16/20 12:00 98.8 71 17 108/49 (68) 93 03/16/20 10:20 94 Room Air 21 03/16/20 09:18 114/40 03/16/20 09:00 Room Air 03/16/20 08:00 72 03/16/20 08:00 97.9 70 19 114/40 (64) 95 Intake and Output 03/16/20 03/17/20 19:00 07:00 Intake Total 480 ml 600 ml Output Total 500 ml 1100 ml Balance -20 ml -500 ml Intake Oral 480 ml 600 ml Output Urine Total 500 ml 1100 ml # Voids 2 General Appearance: WD/WN HEENT: normocephalic, atraumatic Respiratory: chest wall non-tender, lungs clear Cardiovascular: normal peripheral pulses, normal rate Abdomen: normal bowel sounds, soft, non tender Extremities: pedal pulses normal Skin: no rash Neurologic: no motor/sensory deficits, alert, oriented x 3, responsive Musculoskeletal: normal muscle bulk Current Medications Medications (Trade) Dose Ordered Sig/Ran Route PRN Reason Start Time Stop Time Status Last Admin Dose Admin Acetaminophen (Tylenol) 650 mg Q4H PRN ORAL FEVER 03/14/20 14:15 04/13/20 14:14 03/14/20 17:35 Acetaminophen (Tylenol) 650 mg Q6H PRN ORAL Pain Scale (3-5) TEMP > 100.5 03/16/20 18:30 04/15/20 18:29 Albuterol/ Ipratropium (Albuterol/ Ipratropium) 3 ml Q4H PRN HHN Shortness of Breath 03/14/20 14:15 03/19/20 14:14 Aspirin (ASA) 162 mg DAILY ORAL 03/15/20 09:00 04/29/20 08:59 03/16/20 09:18 Dextrose (Dextrose 50%) 25 ml Q30M PRN IV Hypoglycemia 03/14/20 14:30 06/12/20 14:29 Dextrose (Dextrose 50%) 50 ml Q30M PRN IV Hypoglycemia 03/14/20 14:30 06/12/20 14:29 Diltiazem HCl (Cardizem) 10 mg Q1H PRN IV heart rate more than 120, 03/14/20 14:15 04/13/20 14:14 Enalaprilat (Vasotec) 2.5 mg Q6H PRN IV sbp more than 160 03/14/20 14:15 04/13/20 14:14 Folic Acid (Folate) 1 mg DAILY ORAL 03/17/20 09:00 04/16/20 08:59 Gabapentin (Neurontin) 300 mg THREE TIMES A DAY ORAL 03/15/20 13:00 04/14/20 12:59 03/16/20 17:40 Insulin Aspart (NovoLOG) BEFORE MEALS AND HS SUBQ 03/14/20 16:30 06/12/20 16:29 03/17/20 06:11 Iron Sucrose 100 mg/Sodium Chloride 60 ml @ 240 mls/hr BEDTIME IV 03/16/20 21:00 03/20/20 21:14 03/16/20 20:42 Losartan Potassium (Cozaar) 25 mg DAILY ORAL 03/16/20 09:00 04/15/20 08:59 03/16/20 09:18 Morphine Sulfate (Morphine Sulfate) 2 mg Q4H PRN IVP Moderate Pain (Pain Scale 4-6) 03/14/20 17:30 03/21/20 17:29 03/17/20 01:01 Morphine Sulfate (Morphine Sulfate) 4 mg Q4H PRN IVP Severe Pain (Pain Scale 7-10) 03/14/20 17:30 03/21/20 17:29 03/15/20 13:11 Nitroglycerin (Ntg) 0.4 mg Q5M PRN SL Prn Chest Pain 03/14/20 14:15 04/13/20 14:14 Ondansetron HCl (Zofran) 4 mg Q6H PRN IVP Nausea & Vomiting 03/14/20 14:15 04/13/20 14:14 Pantoprazole (Protonix) 40 mg EVERY 12 HOURS ORAL 03/15/20 13:00 04/14/20 12:59 03/16/20 20:42 Polyethylene Glycol (Miralax) 17 gm DAILYPRN PRN ORAL Constipation 03/14/20 14:15 04/13/20 14:14 03/17/20 06:15 Rivaroxaban (Xarelto) 10 mg DAILY ORAL 03/16/20 09:00 06/14/20 08:59 03/16/20 09:19 Sitagliptin Phosphate (Januvia) 25 mg DAILY ORAL 03/16/20 09:00 04/15/20 08:59 03/16/20 09:18 Sucralfate (Carafate) 1 gm FOUR TIMES A DAY ORAL 03/15/20 13:00 06/13/20 12:59 03/16/20 20:42 Temazepam (Restoril) 15 mg HSPRN PRN ORAL Insomnia 03/14/20 14:15 03/21/20 14:14 03/16/20 20:42 Assessment/Plan Assessment/Plan ASSESSMENT Chest pain , r/o ACS Probably atypical CP, likely MS Hx of , s/p AVR status post aortic valve replacement HTN HLD Chronic anticoagulation Hx of CVA with [employer] DM Anemia Moderate pulmonary hypertension PLAN of CARE tele serial troponin negative ,EKG revealed no acute ischemic changes ; patient was ruled out for acute WA Echo with pEF 55% no evidence of WMA; RVSP 50 c/w moderate pulmonary HTN a/PLT with aspirin lipid panel with stable LDH and total cholesterol ; TG 176 BP management with ARB CP possibly MS, as aggravated on palpation of left sided chest wall, O2 to keep sat above 92 pulmonary toilet CXR showed findings with possible bronchitis versus senescent changes repeat CXR in am Venous Duplex BLE 03/16 NGT patient on chronic a/c for unclear reason monitor H&H with goal to keep Hgb > 7 started on IV iron st OB GI on the case ; EGD and colon done 1.5 yrs ago no GI procedure planned ,mas per GI, unless stool OB positive GI prophylaxis bowel regimen BS management with Januvia and SSI pain management supportive care case discussed and evaluated by supervising physician Rima Velazquez NP Mar 17, 2020 07:37
--- NOTE | 2020-03-17 07:52 | General Progress Note ---
Assessment/Plan Assessment/Plan: 1. Chest pain. 2. History of aortic valve replacement x2. 3. History of CVA. 4. Diabetes mellitus. 5. History of hypertension. 6. History of hyperlipidemia. 7. Low-grade fevers. 8. Left-sided weakness. 9. iron def anemia 10 folate def iv iron folic acid supplement stool ob fu cardiology GI procedures if needed Subjective ROS Limited/Unobtainable: No Allergies: Coded Allergies: TRAMADOL (Verified Allergy, Unknown, 03/14/20) Objective Last 24 Hour Vital Signs Date Time Temp Pulse Resp B/P (MAP) Pulse Ox O2 Delivery O2 Flow Rate FiO2 03/17/20 04:00 98.1 75 22 126/58 (80) 93 03/17/20 04:00 71 03/17/20 00:00 99.9 74 22 117/51 (73) 95 03/17/20 00:00 72 03/16/20 21:00 Room Air 03/16/20 20:00 81 03/16/20 20:00 100.2 79 22 127/67 (87) 97 03/16/20 19:31 96 Room Air 21 03/16/20 18:05 99.7 03/16/20 16:00 100.8 73 18 113/72 (86) 95 03/16/20 16:00 71 03/16/20 14:01 97.9 03/16/20 12:00 72 03/16/20 12:00 98.8 71 17 108/49 (68) 93 03/16/20 10:20 94 Room Air 21 03/16/20 09:18 114/40 03/16/20 09:00 Room Air 03/16/20 08:00 72 03/16/20 08:00 97.9 70 19 114/40 (64) 95 Intake and Output 03/16/20 03/17/20 19:00 07:00 Intake Total 480 ml 600 ml Output Total 500 ml 1100 ml Balance -20 ml -500 ml Intake Oral 480 ml 600 ml Output Urine Total 500 ml 1100 ml # Voids 2 Height (Feet): 5 Height (Inches): 3.00 Weight (Pounds): 160 General Appearance: alert EENT: normal ENT inspection Neck: supple Cardiovascular: normal rate Respiratory/Chest: decreased breath sounds Abdomen: normal bowel sounds, non tender, soft Extremities: non-tender Vosoghi,Alfonso MD Mar 17, 2020 07:52
[2020-03-17 08:28] VITALS: BP 107/52
[2020-03-17 08:54] LABS: BASOPHILS % (AUTO) 0.8 % (0.0-2.0); EOSINOPHILS % (AUTO) 1.3 % (0.0-3.0); HEMATOCRIT 33.4 % (37.0-47.0); HEMOGLOBIN 10.2 G/DL (12.0-16.0); LYMPHOCYTES % (AUTO) 24.8 % (20.0-45.0); MEAN CORPUSCULAR VOLUME 89 FL (80-99); MONOCYTES % (AUTO) 5.7 % (1.0-10.0); NEUTROPHILS % (AUTO) 67.4 % (45.0-75.0); PLATELET COUNT 214 K/UL (150-450); RED BLOOD COUNT 3.76 M/UL (4.20-5.40); RED CELL DISTRIBUTION WIDTH 15.2 % (11.6-14.8); WHITE BLOOD COUNT 10.3 K/UL (4.8-10.8)
[2020-03-17] MEDS: Aspirin Baby 81mg ORAL SCH (08:57)
[2020-03-17] MEDS: sitaGLIPtin 25mg tab ORAL SCH (08:57)
[2020-03-17] MEDS: Sucralfate 1gm tab ORAL SCH ×4 (08:57→21:24)
[2020-03-17] MEDS: Xarelto 10mg tab ORAL SCH (08:57)
[2020-03-17] MEDS: Losartan 25mg tab ORAL SCH (08:58)
[2020-03-17 09:14] LABS: ANION GAP 8 mmol/L (5-15); BLOOD UREA NITROGEN 15 mg/dL (7-18); CALCIUM 8.8 MG/DL (8.5-10.1); CARBON DIOXIDE 28 MMOL/L (21-32); CHLORIDE 101 MMOL/L (98-107); CREATININE 1.3 MG/DL (0.55-1.30); POTASSIUM 4.1 MMOL/L (3.5-5.1); SODIUM 137 MMOL/L (136-145)
[2020-03-17 12:00] VITALS: BP 100/49
--- NOTE | 2020-03-17 13:58 | Internal Med Progress Note ---
Subjective Date of Service: Mar 17, 2020 Physician Name YolyDimitris Attending Physician Humberto Williamson MD Current Medications Medications (Trade) Dose Ordered Sig/Ran Route PRN Reason Start Time Stop Time Status Last Admin Dose Admin Acetaminophen (Tylenol) 650 mg Q4H PRN ORAL FEVER 03/14/20 14:15 04/13/20 14:14 03/14/20 17:35 Acetaminophen (Tylenol) 650 mg Q6H PRN ORAL Pain Scale (3-5) TEMP > 100.5 03/16/20 18:30 04/15/20 18:29 Albuterol/ Ipratropium (Albuterol/ Ipratropium) 3 ml Q4H PRN HHN Shortness of Breath 03/14/20 14:15 03/19/20 14:14 Aspirin (ASA) 162 mg DAILY ORAL 03/15/20 09:00 04/29/20 08:59 03/17/20 08:57 Dextrose (Dextrose 50%) 25 ml Q30M PRN IV Hypoglycemia 03/14/20 14:30 06/12/20 14:29 Dextrose (Dextrose 50%) 50 ml Q30M PRN IV Hypoglycemia 03/14/20 14:30 06/12/20 14:29 Diltiazem HCl (Cardizem) 10 mg Q1H PRN IV heart rate more than 120, 03/14/20 14:15 04/13/20 14:14 Enalaprilat (Vasotec) 2.5 mg Q6H PRN IV sbp more than 160 03/14/20 14:15 04/13/20 14:14 Folic Acid (Folate) 1 mg DAILY ORAL 03/17/20 09:00 04/16/20 08:59 03/17/20 08:57 Gabapentin (Neurontin) 300 mg THREE TIMES A DAY ORAL 03/15/20 13:00 04/14/20 12:59 03/17/20 13:12 Insulin Aspart (NovoLOG) BEFORE MEALS AND HS SUBQ 03/14/20 16:30 06/12/20 16:29 03/17/20 13:16 Iron Sucrose 100 mg/Sodium Chloride 60 ml @ 240 mls/hr BEDTIME IV 03/16/20 21:00 03/20/20 21:14 03/16/20 20:42 Losartan Potassium (Cozaar) 25 mg DAILY ORAL 03/16/20 09:00 04/15/20 08:59 03/16/20 09:18 Morphine Sulfate (Morphine Sulfate) 2 mg Q4H PRN IVP Moderate Pain (Pain Scale 4-6) 03/14/20 17:30 03/21/20 17:29 03/17/20 09:03 Morphine Sulfate (Morphine Sulfate) 4 mg Q4H PRN IVP Severe Pain (Pain Scale 7-10) 03/14/20 17:30 03/21/20 17:29 03/15/20 13:11 Nitroglycerin (Ntg) 0.4 mg Q5M PRN SL Prn Chest Pain 03/14/20 14:15 04/13/20 14:14 Ondansetron HCl (Zofran) 4 mg Q6H PRN IVP Nausea & Vomiting 03/14/20 14:15 04/13/20 14:14 Pantoprazole (Protonix) 40 mg EVERY 12 HOURS ORAL 03/15/20 13:00 04/14/20 12:59 03/17/20 08:57 Polyethylene Glycol (Miralax) 17 gm DAILYPRN PRN ORAL Constipation 03/14/20 14:15 04/13/20 14:14 03/17/20 06:15 Rivaroxaban (Xarelto) 10 mg DAILY ORAL 03/16/20 09:00 06/14/20 08:59 03/17/20 08:57 Sitagliptin Phosphate (Januvia) 25 mg DAILY ORAL 03/16/20 09:00 04/15/20 08:59 03/17/20 08:57 Sucralfate (Carafate) 1 gm FOUR TIMES A DAY ORAL 03/15/20 13:00 06/13/20 12:59 03/17/20 13:09 Temazepam (Restoril) 15 mg HSPRN PRN ORAL Insomnia 03/14/20 14:15 03/21/20 14:14 03/16/20 20:42 Allergies: Coded Allergies: TRAMADOL (Verified Allergy, Unknown, 03/14/20) ROS Limited/Unobtainable: No Constitutional: Reports: no symptoms HEENT: Reports: no symptoms Cardiovascular: Reports: no symptoms Respiratory: Reports: no symptoms Gastrointestinal/Abdominal: Reports: no symptoms Genitourinary: Reports: no symptoms Neurologic/Psychiatric: Reports: no symptoms Subjective 69 YO F admitted with chest pain. Cover for Int Andi-Dr Williamson Objective Last Vital Signs Date Time Temp Pulse Resp B/P (MAP) Pulse Ox O2 Delivery O2 Flow Rate FiO2 03/17/20 09:00 Room Air 03/17/20 08:58 107/52 03/17/20 08:28 98.6 75 18 100 03/17/20 07:36 21 Laboratory Tests Test 03/17/20 07:46 White Blood Count 10.3 K/UL (4.8-10.8) Red Blood Count 3.76 M/UL (4.20-5.40) L Hemoglobin 10.2 G/DL (12.0-16.0) L Hematocrit 33.4 % (37.0-47.0) L Mean Corpuscular Volume 89 FL (80-99) Mean Corpuscular Hemoglobin 27.0 PG (27.0-31.0) Mean Corpuscular Hemoglobin Concent 30.4 G/DL (32.0-36.0) L Red Cell Distribution Width 15.2 % (11.6-14.8) H Platelet Count 214 K/UL (150-450) Mean Platelet Volume 6.6 FL (6.5-10.1) Neutrophils (%) (Auto) 67.4 % (45.0-75.0) Lymphocytes (%) (Auto) 24.8 % (20.0-45.0) Monocytes (%) (Auto) 5.7 % (1.0-10.0) Eosinophils (%) (Auto) 1.3 % (0.0-3.0) Basophils (%) (Auto) 0.8 % (0.0-2.0) Sodium Level 137 MMOL/L (136-145) Potassium Level 4.1 MMOL/L (3.5-5.1) Chloride Level 101 MMOL/L (98-107) Carbon Dioxide Level 28 MMOL/L (21-32) Anion Gap 8 mmol/L (5-15) Blood Urea Nitrogen 15 mg/dL (7-18) Creatinine 1.3 MG/DL (0.55-1.30) Estimat Glomerular Filtration Rate 40.4 mL/min (>60) Glucose Level 246 MG/DL (74-106) H Calcium Level 8.8 MG/DL (8.5-10.1) Intake and Output 6/13/20 6/14/20 19:00 07:00 Intake Total 480 ml 600 ml Output Total 500 ml 1100 ml Balance -20 ml -500 ml Intake Oral 480 ml 600 ml Output Urine Total 500 ml 1100 ml # Voids 2 Objective PHYSICAL EXAMINATION: GENERAL: Patient is well-developed, well-nourished female, in no apparent distress. HEENT: Eyes pupils are equal and responsive to light and accommodation. Extraocular movements are intact. NECK: Supple. No lymphadenopathy. CHEST: Lungs are clear to auscultation bilaterally. No wheezes or rales. CARDIOVASCULAR: Click is heard. S1, S2 are normal without murmurs, rubs, or gallops. ABDOMEN: Soft, nontender, nondistended. Positive bowel sounds. No evidence of hepatosplenomegaly. Currently, no rebound or guarding noted. EXTREMITIES: Negative for clubbing, cyanosis, or edema. RECTAL/GENITAL: Not performed. NEUROLOGIC: Cranial nerves II to XII grossly intact without focal deficits. Motor strength is 5/5 bilaterally. Deep tendon reflexes are 2+ plantar. Assessment/Plan Assessment/Plan ASSESSMENT: This is a 69-year-old female. 1. Chest pain. 2. History of aortic stenosis (AVR X2) 3. Diabetes type 2. 4. Hypertension. 5. Hypercholesterolemia. 6. Iron deficiency anemia TREATMENT: 1. Chest pain/aortic stenosis. On Xarelto. A Cardiology consultation has beenobtained with Dr. Geraldo Daley. Serial troponin levels are negative. LVEF=55% 2. Diabetes type 2. Continue Januvia and NovoLog sliding scale. 3. Hypertension. Continue losartan as above. 4. Hypercholesterolemia. Continue pravastatin as above. 5. GI workup in progress. Dimitris Frederick MD Mar 17, 2020 13:58
[2020-03-17 16:00] VITALS: BP 109/81
[2020-03-17 20:00] VITALS: BP 114/61
--- NOTE | 2020-03-17 20:49 | Cardiology Progress Note ---
Assessment/Plan Assessment/Plan atypical chest pain post AVR no changes, stable Subjective Subjective Coverage for Dr Daley The patient feels good, she denies any chest pain today filipino speaking only Objective Last 24 Hour Vital Signs Date Time Temp Pulse Resp B/P (MAP) Pulse Ox O2 Delivery O2 Flow Rate FiO2 03/17/20 19:21 77 18 96 Room Air 21 03/17/20 19:16 96 Room Air 21 03/17/20 16:00 76 03/17/20 16:00 98.7 80 19 109/81 (90) 97 03/17/20 12:00 75 03/17/20 12:00 99.3 74 18 100/49 (66) 98 03/17/20 09:00 Room Air 03/17/20 08:58 107/52 03/17/20 08:28 98.6 75 18 107/52 (70) 100 03/17/20 08:00 78 03/17/20 07:36 95 Room Air 21 03/17/20 04:00 98.1 75 22 126/58 (80) 93 03/17/20 04:00 71 03/17/20 00:00 99.9 74 22 117/51 (73) 95 03/17/20 00:00 72 03/16/20 21:00 Room Air General Appearance: no apparent distress EENT: PERRL/EOMI Neck: supple, no JVD Rhythm: NSR Cardiovascular: normal rate Respiratory/Chest: normal breath sounds Abdomen: non tender, distended Extremities: trace edema Intake and Output 03/16/20 03/17/20 19:00 07:00 Intake Total 480 ml 600 ml Output Total 500 ml 1100 ml Balance -20 ml -500 ml Intake Oral 480 ml 600 ml Output Urine Total 500 ml 1100 ml # Voids 2 Laboratory Tests Test 03/17/20 07:46 White Blood Count 10.3 K/UL (4.8-10.8) Red Blood Count 3.76 M/UL (4.20-5.40) L Hemoglobin 10.2 G/DL (12.0-16.0) L Hematocrit 33.4 % (37.0-47.0) L Mean Corpuscular Volume 89 FL (80-99) Mean Corpuscular Hemoglobin 27.0 PG (27.0-31.0) Mean Corpuscular Hemoglobin Concent 30.4 G/DL (32.0-36.0) L Red Cell Distribution Width 15.2 % (11.6-14.8) H Platelet Count 214 K/UL (150-450) Mean Platelet Volume 6.6 FL (6.5-10.1) Neutrophils (%) (Auto) 67.4 % (45.0-75.0) Lymphocytes (%) (Auto) 24.8 % (20.0-45.0) Monocytes (%) (Auto) 5.7 % (1.0-10.0) Eosinophils (%) (Auto) 1.3 % (0.0-3.0) Basophils (%) (Auto) 0.8 % (0.0-2.0) Sodium Level 137 MMOL/L (136-145) Potassium Level 4.1 MMOL/L (3.5-5.1) Chloride Level 101 MMOL/L (98-107) Carbon Dioxide Level 28 MMOL/L (21-32) Anion Gap 8 mmol/L (5-15) Blood Urea Nitrogen 15 mg/dL (7-18) Creatinine 1.3 MG/DL (0.55-1.30) Estimat Glomerular Filtration Rate 40.4 mL/min (>60) Glucose Level 246 MG/DL (74-106) H Calcium Level 8.8 MG/DL (8.5-10.1) Sienna Marsh MD Mar 17, 2020 20:49
[2020-03-17] MEDS: Iron Sucrose 100 MG in NS 55 ML IV SCH (21:25)
[2020-03-18] VITALS: BP 104/59
[2020-03-18 04:00] VITALS: BP 109/62
[2020-03-18] MEDS: NovoLOG Insulin Flexpen SUBQ SCH ×4 (06:07→21:01)
[2020-03-18] MEDS: Morphine Sulfate 2mg/ml Inj(IV/IM USE ONLY) IVP PRN ×3 (06:11→20:59)
[2020-03-18 07:40] LABS: BASOPHILS % (AUTO) 0.7 % (0.0-2.0); HEMATOCRIT 30.6 % (37.0-47.0); HEMOGLOBIN 9.2 G/DL (12.0-16.0); LYMPHOCYTES % (AUTO) 31.6 % (20.0-45.0); MEAN CORPUSCULAR VOLUME 89 FL (80-99); MONOCYTES % (AUTO) 6.2 % (1.0-10.0); NEUTROPHILS % (AUTO) 59.5 % (45.0-75.0); PLATELET COUNT 198 K/UL (150-450); RED BLOOD COUNT 3.42 M/UL (4.20-5.40); WHITE BLOOD COUNT 8.2 K/UL (4.8-10.8)
[2020-03-18 08:00] VITALS: BP 103/63
[2020-03-18 08:07] LABS: ANION GAP 8 mmol/L (5-15); BLOOD UREA NITROGEN 14 mg/dL (7-18); CALCIUM 8.5 MG/DL (8.5-10.1); CARBON DIOXIDE 29 MMOL/L (21-32); CHLORIDE 102 MMOL/L (98-107); CREATININE 1.2 MG/DL (0.55-1.30); POTASSIUM 3.9 MMOL/L (3.5-5.1); SODIUM 139 MMOL/L (136-145)
[2020-03-18] MEDS: Aspirin Baby 81mg ORAL SCH (09:29)
[2020-03-18] MEDS: Losartan 25mg tab ORAL SCH (09:29)
[2020-03-18] MEDS: Sucralfate 1gm tab ORAL SCH ×4 (09:29→20:58)
[2020-03-18] MEDS: sitaGLIPtin 25mg tab ORAL SCH (09:29)
[2020-03-18] MEDS: Xarelto 10mg tab ORAL SCH (09:30)
--- NOTE | 2020-03-18 09:46 | Diagnostic Imaging Report ---
Procedure: XRAY Chest 1v Reason for study: Reason For Exam: SOB Comparison films: 03/14/2020. FINDINGS: Patient status post open heart surgery. Vascularity is normal. The lung david are clear bilaterally. Cardiac and mediastinal silhouette are within normal limits. CP angles are sharp. The bony thorax appear unremarkable. IMPRESSION: NO ACUTE CARDIOPULMONARY DISEASE.
--- NOTE | 2020-03-18 11:26 | Pulmonology Progress Note ---
Subjective ROS Limited/Unobtainable: Yes Interval Events: Constitutional: Reports: no symptoms HEENT: Repors: no symptoms Allergies: Coded Allergies: TRAMADOL (Verified Allergy, Unknown, 03/14/20) Objective Last 24 Hour Vital Signs Date Time Temp Pulse Resp B/P (MAP) Pulse Ox O2 Delivery O2 Flow Rate FiO2 03/18/20 09:29 103/63 03/18/20 09:00 Room Air 03/18/20 08:00 98.1 70 18 103/63 (76) 96 03/18/20 07:42 70 03/18/20 04:00 71 03/18/20 04:00 98.1 77 18 109/62 (78) 95 03/18/20 00:00 75 03/18/20 00:00 97.7 75 18 104/59 (74) 96 03/17/20 21:00 Room Air 03/17/20 20:00 97.8 78 18 114/61 (78) 98 03/17/20 20:00 75 03/17/20 19:21 77 18 96 Room Air 21 03/17/20 19:16 96 Room Air 21 03/17/20 16:00 76 03/17/20 16:00 98.7 80 19 109/81 (90) 97 03/17/20 12:00 75 03/17/20 12:00 99.3 74 18 100/49 (66) 98 Intake and Output 03/17/20 03/18/20 19:00 07:00 Intake Total 920 ml Output Total 1600 ml Balance -680 ml Intake Oral 920 ml Output Urine Total 1600 ml # Voids 6 2 General Appearance: WD/WN HEENT: normocephalic, atraumatic Respiratory: chest wall non-tender, lungs clear Cardiovascular: normal peripheral pulses, normal rate Abdomen: normal bowel sounds, soft, non tender Extremities: pedal pulses normal Skin: no rash Neurologic: no motor/sensory deficits, alert, oriented x 3, responsive Musculoskeletal: normal muscle bulk Laboratory Tests 03/18/20 05:45: White Blood Count 8.2, Red Blood Count 3.42L, Hemoglobin 9.2L, Hematocrit 30.6L , Mean Corpuscular Volume 89, Mean Corpuscular Hemoglobin 26.9L, Mean Corpuscular Hemoglobin Concent 30.2L, Red Cell Distribution Width 15.0H, Platelet Count 198, Mean Platelet Volume 6.3L, Neutrophils (%) (Auto) 59.5, Lymphocytes (%) (Auto) 31.6, Monocytes (%) (Auto) 6.2, Eosinophils (%) (Auto) 2.0, Basophils (%) (Auto) 0.7, Sodium Level 139, Potassium Level 3.9, Chloride Level 102, Carbon Dioxide Level 29, Anion Gap 8, Blood Urea Nitrogen 14, Creatinine 1.2, Estimat Glomerular Filtration Rate 44.3, Glucose Level 260H, Calcium Level 8.5 Current Medications Medications (Trade) Dose Ordered Sig/Ran Route PRN Reason Start Time Stop Time Status Last Admin Dose Admin Acetaminophen (Tylenol) 650 mg Q4H PRN ORAL FEVER 03/14/20 14:15 04/13/20 14:14 03/14/20 17:35 Acetaminophen (Tylenol) 650 mg Q6H PRN ORAL Pain Scale (3-5) TEMP > 100.5 03/16/20 18:30 04/15/20 18:29 Albuterol/ Ipratropium (Albuterol/ Ipratropium) 3 ml Q4H PRN HHN Shortness of Breath 03/14/20 14:15 03/19/20 14:14 Aspirin (ASA) 162 mg DAILY ORAL 03/15/20 09:00 04/29/20 08:59 03/18/20 09:29 Dextrose (Dextrose 50%) 25 ml Q30M PRN IV Hypoglycemia 03/14/20 14:30 06/12/20 14:29 Dextrose (Dextrose 50%) 50 ml Q30M PRN IV Hypoglycemia 03/14/20 14:30 06/12/20 14:29 Diltiazem HCl (Cardizem) 10 mg Q1H PRN IV heart rate more than 120, 03/14/20 14:15 04/13/20 14:14 Enalaprilat (Vasotec) 2.5 mg Q6H PRN IV sbp more than 160 03/14/20 14:15 04/13/20 14:14 Folic Acid (Folate) 1 mg DAILY ORAL 03/17/20 09:00 04/16/20 08:59 03/18/20 09:29 Gabapentin (Neurontin) 300 mg THREE TIMES A DAY ORAL 03/15/20 13:00 04/14/20 12:59 03/18/20 09:29 Insulin Aspart (NovoLOG) BEFORE MEALS AND HS SUBQ 03/14/20 16:30 06/12/20 16:29 03/18/20 06:07 Iron Sucrose 100 mg/Sodium Chloride 60 ml @ 240 mls/hr BEDTIME IV 03/16/20 21:00 03/20/20 21:14 03/17/20 21:25 Losartan Potassium (Cozaar) 25 mg DAILY ORAL 03/16/20 09:00 04/15/20 08:59 03/18/20 09:29 Morphine Sulfate (Morphine Sulfate) 2 mg Q4H PRN IVP Moderate Pain (Pain Scale 4-6) 03/14/20 17:30 03/21/20 17:29 03/18/20 06:11 Morphine Sulfate (Morphine Sulfate) 4 mg Q4H PRN IVP Severe Pain (Pain Scale 7-10) 03/14/20 17:30 03/21/20 17:29 03/15/20 13:11 Nitroglycerin (Ntg) 0.4 mg Q5M PRN SL Prn Chest Pain 03/14/20 14:15 04/13/20 14:14 Ondansetron HCl (Zofran) 4 mg Q6H PRN IVP Nausea & Vomiting 03/14/20 14:15 04/13/20 14:14 Pantoprazole (Protonix) 40 mg EVERY 12 HOURS ORAL 03/15/20 13:00 04/14/20 12:59 03/18/20 09:29 Polyethylene Glycol (Miralax) 17 gm DAILYPRN PRN ORAL Constipation 03/14/20 14:15 04/13/20 14:14 03/17/20 06:15 Rivaroxaban (Xarelto) 10 mg DAILY ORAL 03/16/20 09:00 06/14/20 08:59 03/18/20 09:30 Sitagliptin Phosphate (Januvia) 25 mg DAILY ORAL 03/16/20 09:00 04/15/20 08:59 03/18/20 09:29 Sucralfate (Carafate) 1 gm FOUR TIMES A DAY ORAL 03/15/20 13:00 06/13/20 12:59 03/18/20 09:29 Temazepam (Restoril) 15 mg HSPRN PRN ORAL Insomnia 03/14/20 14:15 03/21/20 14:14 03/17/20 21:45 Assessment/Plan Problems: (1) ACS (acute coronary syndrome) (2) CAD (coronary artery disease) (3) Chronic anticoagulation (4) History of CVA (cerebrovascular accident) (5) Left-sided weakness (6) Diabetes mellitus Assessment/Plan Pt ;had a few episodes of low grade fever, will get ID and order Covid test. serial ekg, troponin echocardiogram reviewed: EF 55%, PA pressure 50 Cardiology siding scale diabetic diet dvt prophylaxis. Aurea Kirby MD Mar 18, 2020 11:26
[2020-03-18 12:00] VITALS: BP 106/60
[2020-03-18 16:00] VITALS: BP 105/93
--- NOTE | 2020-03-18 18:10 | Internal Med Progress Note ---
Subjective Date of Service: Mar 18, 2020 Physician Name YolyDimitris Attending Physician Humberto Williamson MD Current Medications Medications (Trade) Dose Ordered Sig/Ran Route PRN Reason Start Time Stop Time Status Last Admin Dose Admin Acetaminophen (Tylenol) 650 mg Q4H PRN ORAL FEVER 03/14/20 14:15 04/13/20 14:14 03/18/20 17:16 Acetaminophen (Tylenol) 650 mg Q6H PRN ORAL Pain Scale (3-5) TEMP > 100.5 03/16/20 18:30 04/15/20 18:29 Albuterol/ Ipratropium (Albuterol/ Ipratropium) 3 ml Q4H PRN HHN Shortness of Breath 03/14/20 14:15 03/19/20 14:14 Aspirin (ASA) 162 mg DAILY ORAL 03/15/20 09:00 04/29/20 08:59 03/18/20 09:29 Dextrose (Dextrose 50%) 25 ml Q30M PRN IV Hypoglycemia 03/14/20 14:30 06/12/20 14:29 Dextrose (Dextrose 50%) 50 ml Q30M PRN IV Hypoglycemia 03/14/20 14:30 06/12/20 14:29 Diltiazem HCl (Cardizem) 10 mg Q1H PRN IV heart rate more than 120, 03/14/20 14:15 04/13/20 14:14 Enalaprilat (Vasotec) 2.5 mg Q6H PRN IV sbp more than 160 03/14/20 14:15 04/13/20 14:14 Folic Acid (Folate) 1 mg DAILY ORAL 03/17/20 09:00 04/16/20 08:59 03/18/20 09:29 Gabapentin (Neurontin) 300 mg THREE TIMES A DAY ORAL 03/15/20 13:00 04/14/20 12:59 03/18/20 17:15 Insulin Aspart (NovoLOG) BEFORE MEALS AND HS SUBQ 03/14/20 16:30 06/12/20 16:29 03/18/20 17:15 Iron Sucrose 100 mg/Sodium Chloride 60 ml @ 240 mls/hr BEDTIME IV 03/16/20 21:00 03/20/20 21:14 03/17/20 21:25 Losartan Potassium (Cozaar) 25 mg DAILY ORAL 03/16/20 09:00 04/15/20 08:59 03/18/20 09:29 Morphine Sulfate (Morphine Sulfate) 2 mg Q4H PRN IVP Moderate Pain (Pain Scale 4-6) 03/14/20 17:30 03/21/20 17:29 03/18/20 12:19 Morphine Sulfate (Morphine Sulfate) 4 mg Q4H PRN IVP Severe Pain (Pain Scale 7-10) 03/14/20 17:30 03/21/20 17:29 03/15/20 13:11 Nitroglycerin (Ntg) 0.4 mg Q5M PRN SL Prn Chest Pain 03/14/20 14:15 04/13/20 14:14 Ondansetron HCl (Zofran) 4 mg Q6H PRN IVP Nausea & Vomiting 03/14/20 14:15 04/13/20 14:14 Pantoprazole (Protonix) 40 mg EVERY 12 HOURS ORAL 03/15/20 13:00 04/14/20 12:59 03/18/20 09:29 Polyethylene Glycol (Miralax) 17 gm DAILYPRN PRN ORAL Constipation 03/14/20 14:15 04/13/20 14:14 03/17/20 06:15 Rivaroxaban (Xarelto) 10 mg DAILY ORAL 03/16/20 09:00 06/14/20 08:59 03/18/20 09:30 Sitagliptin Phosphate (Januvia) 25 mg DAILY ORAL 03/16/20 09:00 04/15/20 08:59 03/18/20 09:29 Sucralfate (Carafate) 1 gm FOUR TIMES A DAY ORAL 03/15/20 13:00 06/13/20 12:59 03/18/20 17:15 Temazepam (Restoril) 15 mg HSPRN PRN ORAL Insomnia 03/14/20 14:15 03/21/20 14:14 03/17/20 21:45 Allergies: Coded Allergies: TRAMADOL (Verified Allergy, Unknown, 03/14/20) ROS Limited/Unobtainable: No Constitutional: Reports: no symptoms HEENT: Reports: no symptoms Cardiovascular: Reports: chest pain Respiratory: Reports: no symptoms Gastrointestinal/Abdominal: Reports: no symptoms Genitourinary: Reports: no symptoms Neurologic/Psychiatric: Reports: no symptoms Subjective 69 YO F admitted with chest pain. Cover for Int Andi-Dr Williamson Objective Last Vital Signs Date Time Temp Pulse Resp B/P (MAP) Pulse Ox O2 Delivery O2 Flow Rate FiO2 03/18/20 17:46 99.7 03/18/20 16:00 74 19 105/93 (97) 96 03/18/20 09:00 Room Air 03/17/20 19:21 21 Laboratory Tests Test 03/18/20 05:45 White Blood Count 8.2 K/UL (4.8-10.8) Red Blood Count 3.42 M/UL (4.20-5.40) L Hemoglobin 9.2 G/DL (12.0-16.0) L Hematocrit 30.6 % (37.0-47.0) L Mean Corpuscular Volume 89 FL (80-99) Mean Corpuscular Hemoglobin 26.9 PG (27.0-31.0) L Mean Corpuscular Hemoglobin Concent 30.2 G/DL (32.0-36.0) L Red Cell Distribution Width 15.0 % (11.6-14.8) H Platelet Count 198 K/UL (150-450) Mean Platelet Volume 6.3 FL (6.5-10.1) L Neutrophils (%) (Auto) 59.5 % (45.0-75.0) Lymphocytes (%) (Auto) 31.6 % (20.0-45.0) Monocytes (%) (Auto) 6.2 % (1.0-10.0) Eosinophils (%) (Auto) 2.0 % (0.0-3.0) Basophils (%) (Auto) 0.7 % (0.0-2.0) Sodium Level 139 MMOL/L (136-145) Potassium Level 3.9 MMOL/L (3.5-5.1) Chloride Level 102 MMOL/L (98-107) Carbon Dioxide Level 29 MMOL/L (21-32) Anion Gap 8 mmol/L (5-15) Blood Urea Nitrogen 14 mg/dL (7-18) Creatinine 1.2 MG/DL (0.55-1.30) Estimat Glomerular Filtration Rate 44.3 mL/min (>60) Glucose Level 260 MG/DL (74-106) H Calcium Level 8.5 MG/DL (8.5-10.1) Intake and Output 03/17/20 03/18/20 19:00 07:00 Intake Total 920 ml Output Total 1600 ml Balance -680 ml Intake Oral 920 ml Output Urine Total 1600 ml # Voids 6 2 Objective PHYSICAL EXAMINATION: GENERAL: Patient is well-developed, well-nourished female, in no apparent distress. HEENT: Eyes pupils are equal and responsive to light and accommodation. Extraocular movements are intact. NECK: Supple. No lymphadenopathy. CHEST: Lungs are clear to auscultation bilaterally. No wheezes or rales. CARDIOVASCULAR: Click is heard. S1, S2 are normal without murmurs, rubs, or gallops. ABDOMEN: Soft, nontender, nondistended. Positive bowel sounds. No evidence of hepatosplenomegaly. Currently, no rebound or guarding noted. EXTREMITIES: Negative for clubbing, cyanosis, or edema. RECTAL/GENITAL: Not performed. NEUROLOGIC: Cranial nerves II to XII grossly intact without focal deficits. Motor strength is 5/5 bilaterally. Deep tendon reflexes are 2+ plantar. Assessment/Plan Assessment/Plan ASSESSMENT: This is a 69-year-old female. 1. Chest pain. 2. History of aortic stenosis (AVR X2) 3. Diabetes type 2. 4. Hypertension. 5. Hypercholesterolemia. 6. Iron deficiency anemia TREATMENT: 1. Chest pain/aortic stenosis. On Xarelto. A Cardiology consultation has beenobtained with Dr. Geraldo Daley. Serial troponin levels are negative. LVEF=55% 2. Diabetes type 2. Continue Januvia and NovoLog sliding scale. 3. Hypertension. Continue losartan as above. 4. Hypercholesterolemia. Continue pravastatin as above. 5. IV iron per GI=Dimitris Blair MD Mar 18, 2020 18:10
--- NOTE | 2020-03-18 18:45 | Cardiology Progress Note ---
Assessment/Plan Assessment/Plan 1. Chest pain probable chest wall tenderness 2. History of aortic valve replacement x2. 3. History of CVA. 4. Diabetes mellitus. 5. History of hypertension. 6. History of hyperlipidemia. 7. Fevers. 8. Left-sided weakness vs pain induced decresed motion echo noted normal wall motion no effusion has pulm htn ekg not change trop neg despite several days of pain venous duplex neg for dvt gi noted pain was reproducible on the chest wall palpation no further cardiac salgado at this time out pt fu tele neg will dc tele fever salgado per id Subjective Subjective pt is nwo in covid isolation so i did not see her , per rn has fever no cough and still with cp and left sided weakness Objective Last 24 Hour Vital Signs Date Time Temp Pulse Resp B/P (MAP) Pulse Ox O2 Delivery O2 Flow Rate FiO2 03/18/20 17:46 99.7 03/18/20 16:00 100.2 74 19 105/93 (97) 96 03/18/20 15:10 74 03/18/20 12:00 101.1 77 19 106/60 (75) 96 03/18/20 11:41 70 03/18/20 09:29 103/63 03/18/20 09:00 Room Air 03/18/20 08:00 98.1 70 18 103/63 (76) 96 03/18/20 07:42 70 03/18/20 04:00 71 03/18/20 04:00 98.1 77 18 109/62 (78) 95 03/18/20 00:00 75 03/18/20 00:00 97.7 75 18 104/59 (74) 96 03/17/20 21:00 Room Air 03/17/20 20:00 97.8 78 18 114/61 (78) 98 03/17/20 20:00 75 03/17/20 19:21 77 18 96 Room Air 21 03/17/20 19:16 96 Room Air 21 Intake and Output 03/17/20 03/18/20 19:00 07:00 Intake Total 920 ml Output Total 1600 ml Balance -680 ml Intake Oral 920 ml Output Urine Total 1600 ml # Voids 6 2 Laboratory Tests Test 03/18/20 05:45 White Blood Count 8.2 K/UL (4.8-10.8) Red Blood Count 3.42 M/UL (4.20-5.40) L Hemoglobin 9.2 G/DL (12.0-16.0) L Hematocrit 30.6 % (37.0-47.0) L Mean Corpuscular Volume 89 FL (80-99) Mean Corpuscular Hemoglobin 26.9 PG (27.0-31.0) L Mean Corpuscular Hemoglobin Concent 30.2 G/DL (32.0-36.0) L Red Cell Distribution Width 15.0 % (11.6-14.8) H Platelet Count 198 K/UL (150-450) Mean Platelet Volume 6.3 FL (6.5-10.1) L Neutrophils (%) (Auto) 59.5 % (45.0-75.0) Lymphocytes (%) (Auto) 31.6 % (20.0-45.0) Monocytes (%) (Auto) 6.2 % (1.0-10.0) Eosinophils (%) (Auto) 2.0 % (0.0-3.0) Basophils (%) (Auto) 0.7 % (0.0-2.0) Sodium Level 139 MMOL/L (136-145) Potassium Level 3.9 MMOL/L (3.5-5.1) Chloride Level 102 MMOL/L (98-107) Carbon Dioxide Level 29 MMOL/L (21-32) Anion Gap 8 mmol/L (5-15) Blood Urea Nitrogen 14 mg/dL (7-18) Creatinine 1.2 MG/DL (0.55-1.30) Estimat Glomerular Filtration Rate 44.3 mL/min (>60) Glucose Level 260 MG/DL (74-106) H Calcium Level 8.5 MG/DL (8.5-10.1) Objective i did not examin pt as pt now in covid isolation Geraldo Daley MD Mar 18, 2020 18:45
[2020-03-18] MEDS ORDERED: cefTRIAXone 1 GM in D5W 55 ML IVPB SCH (19:15)
--- NOTE | 2020-03-18 19:19 | Consultation ---
History of Present Illness General Date patient seen: Mar 18, 2020 Chief Complaint: Chest Pain Present Illness HPI 69 y/o F with hx of Dm2, CVA w/ residual L side weakness, HTN, HLD, former smoker, s/p AVR x2 (Tissue 2011, mechanical 2013) on Xarelto, s/p b/l cataract surgery, s/p knee replacement, s/p appendectomy, s/p cholecystectomy presented to ED on 03/14/20 with 2 days of upper chest pain and L shoulder discomfort. Left shoulder pain gets worse with manipulation of L arm and shoulder. She had some nausea but no vomiting Denied abd pain, diarrhea, melena or hematochezia, headache Allergies: Coded Allergies: TRAMADOL (Verified Allergy, Unknown, 03/14/20) Medication History Scheduled Celecoxib* (Celebrex*), 200 MG ORAL DAILY, (Reported) Docusate Sodium* (Docusate Sodium*), 100 MG ORAL THREE TIMES A DAY, (Reported) Gabapentin* (Gabapentin*), 300 MG ORAL THREE TIMES A DAY, (Reported) Glipizide* (Glipizide*), 5 MG ORAL BIDAC, (Reported) Losartan Potassium* (Losartan Potassium*), 25 MG ORAL DAILY, (Reported) Montelukast Sodium* (Montelukast Sodium*), 10 MG ORAL DAILY, (Reported) Pantoprazole* (Pantoprazole*), 40 MG ORAL DAILY, (Reported) Pravastatin Sod* (Pravastatin Sod*), 20 MG ORAL BEDTIME, (Reported) Rivaroxaban (Xarelto*), 10 MG ORAL DAILY, (Reported) Ropinirole Hcl* (Ropinirole Hcl*), 3 MG PO TID, (Reported) Sitagliptin* (Januvia*), 100 MG ORAL DAILY, (Reported) Scheduled PRN Calcium Carbonate (Calcium), 500 MG ORAL THREE TIMES A DAY PRN for HEARTBURN, ( Reported) Hydrocodone/Acetaminophen 5-325* (Hydrocodone/Acetaminophen 5-325*), 1 TAB ORAL Q12 PRN for For Pain, (Reported) Miscellaneous Medications Isosorbide Mononitrate (Isosorbide Mononitrate), 30 MG PO, (Reported) Nph, Human Insulin Isophane* (Novolin N*), 0 SUBQ, (Reported) Potassium Chloride (Potassium Chloride), 8 MEQ PO, (Reported) Patient History Healthcare decision maker Resuscitation status Advanced Directive on File Patient History Narrative PMhx: as above Shx: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 She smoked many years ago, but she quit. She does not drink alcohol. Fhx: non contributory Review of Systems All Other Systems: negative except mentioned in HPI Physical Exam Physical Exam Narrative GENERAL: Patient is well-developed, well-nourished female, in no apparent distress. HEENT: Eyes pupils are equal and responsive to light and accommodation. Extraocular movements are intact. NECK: Supple. No lymphadenopathy. CHEST: Lungs are clear to auscultation bilaterally. No wheezes or rales. CARDIOVASCULAR: Click is heard. S1, S2 are normal without murmurs, rubs, or gallops. ABDOMEN: Soft, nontender, nondistended. Positive bowel sounds. No evidence of hepatosplenomegaly. Currently, no rebound or guarding noted. EXTREMITIES: Negative for clubbing, cyanosis, or edema. Last 24 Hour Vital Signs Date Time Temp Pulse Resp B/P (MAP) Pulse Ox O2 Delivery O2 Flow Rate FiO2 03/18/20 17:46 99.7 03/18/20 16:00 100.2 74 19 105/93 (97) 96 03/18/20 15:10 74 03/18/20 12:00 101.1 77 19 106/60 (75) 96 03/18/20 11:41 70 03/18/20 09:29 103/63 03/18/20 09:00 Room Air 03/18/20 08:00 98.1 70 18 103/63 (76) 96 03/18/20 07:42 70 03/18/20 04:00 71 03/18/20 04:00 98.1 77 18 109/62 (78) 95 03/18/20 00:00 75 03/18/20 00:00 97.7 75 18 104/59 (74) 96 03/17/20 21:00 Room Air 03/17/20 20:00 97.8 78 18 114/61 (78) 98 03/17/20 20:00 75 03/17/20 19:21 77 18 96 Room Air 21 03/17/20 19:16 96 Room Air 21 Intake and Output 03/17/20 03/18/20 19:00 07:00 Intake Total 920 ml Output Total 1600 ml Balance -680 ml Intake Oral 920 ml Output Urine Total 1600 ml # Voids 6 2 Laboratory Tests Test 03/18/20 05:45 White Blood Count 8.2 K/UL (4.8-10.8) Red Blood Count 3.42 M/UL (4.20-5.40) L Hemoglobin 9.2 G/DL (12.0-16.0) L Hematocrit 30.6 % (37.0-47.0) L Mean Corpuscular Volume 89 FL (80-99) Mean Corpuscular Hemoglobin 26.9 PG (27.0-31.0) L Mean Corpuscular Hemoglobin Concent 30.2 G/DL (32.0-36.0) L Red Cell Distribution Width 15.0 % (11.6-14.8) H Platelet Count 198 K/UL (150-450) Mean Platelet Volume 6.3 FL (6.5-10.1) L Neutrophils (%) (Auto) 59.5 % (45.0-75.0) Lymphocytes (%) (Auto) 31.6 % (20.0-45.0) Monocytes (%) (Auto) 6.2 % (1.0-10.0) Eosinophils (%) (Auto) 2.0 % (0.0-3.0) Basophils (%) (Auto) 0.7 % (0.0-2.0) Sodium Level 139 MMOL/L (136-145) Potassium Level 3.9 MMOL/L (3.5-5.1) Chloride Level 102 MMOL/L (98-107) Carbon Dioxide Level 29 MMOL/L (21-32) Anion Gap 8 mmol/L (5-15) Blood Urea Nitrogen 14 mg/dL (7-18) Creatinine 1.2 MG/DL (0.55-1.30) Estimat Glomerular Filtration Rate 44.3 mL/min (>60) Glucose Level 260 MG/DL (74-106) H Calcium Level 8.5 MG/DL (8.5-10.1) Height (Feet): 5 Height (Inches): 3.00 Weight (Pounds): 160 Medications Current Medications Medications (Trade) Dose Ordered Sig/Ran Route PRN Reason Start Time Stop Time Status Last Admin Dose Admin Acetaminophen (Tylenol) 650 mg Q4H PRN ORAL FEVER 03/14/20 14:15 04/13/20 14:14 03/18/20 17:16 Acetaminophen (Tylenol) 650 mg Q6H PRN ORAL Pain Scale (3-5) TEMP > 100.5 03/16/20 18:30 04/15/20 18:29 Albuterol/ Ipratropium (Albuterol/ Ipratropium) 3 ml Q4H PRN HHN Shortness of Breath 03/14/20 14:15 03/19/20 14:14 Aspirin (ASA) 162 mg DAILY ORAL 03/15/20 09:00 04/29/20 08:59 03/18/20 09:29 Dextrose (Dextrose 50%) 25 ml Q30M PRN IV Hypoglycemia 03/14/20 14:30 06/12/20 14:29 Dextrose (Dextrose 50%) 50 ml Q30M PRN IV Hypoglycemia 03/14/20 14:30 06/12/20 14:29 Diltiazem HCl (Cardizem) 10 mg Q1H PRN IV heart rate more than 120, 03/14/20 14:15 04/13/20 14:14 Enalaprilat (Vasotec) 2.5 mg Q6H PRN IV sbp more than 160 03/14/20 14:15 04/13/20 14:14 Folic Acid (Folate) 1 mg DAILY ORAL 03/17/20 09:00 04/16/20 08:59 03/18/20 09:29 Gabapentin (Neurontin) 300 mg THREE TIMES A DAY ORAL 03/15/20 13:00 04/14/20 12:59 03/18/20 17:15 Insulin Aspart (NovoLOG) BEFORE MEALS AND HS SUBQ 03/14/20 16:30 06/12/20 16:29 03/18/20 17:15 Iron Sucrose 100 mg/Sodium Chloride 60 ml @ 240 mls/hr BEDTIME IV 03/16/20 21:00 03/20/20 21:14 03/17/20 21:25 Losartan Potassium (Cozaar) 25 mg DAILY ORAL 03/16/20 09:00 04/15/20 08:59 03/18/20 09:29 Morphine Sulfate (Morphine Sulfate) 2 mg Q4H PRN IVP Moderate Pain (Pain Scale 4-6) 03/14/20 17:30 03/21/20 17:29 03/18/20 12:19 Morphine Sulfate (Morphine Sulfate) 4 mg Q4H PRN IVP Severe Pain (Pain Scale 7-10) 03/14/20 17:30 03/21/20 17:29 03/15/20 13:11 Nitroglycerin (Ntg) 0.4 mg Q5M PRN SL Prn Chest Pain 03/14/20 14:15 04/13/20 14:14 Ondansetron HCl (Zofran) 4 mg Q6H PRN IVP Nausea & Vomiting 03/14/20 14:15 04/13/20 14:14 Pantoprazole (Protonix) 40 mg EVERY 12 HOURS ORAL 03/15/20 13:00 04/14/20 12:59 03/18/20 09:29 Polyethylene Glycol (Miralax) 17 gm DAILYPRN PRN ORAL Constipation 03/14/20 14:15 04/13/20 14:14 03/17/20 06:15 Rivaroxaban (Xarelto) 10 mg DAILY ORAL 03/16/20 09:00 06/14/20 08:59 03/18/20 09:30 Sitagliptin Phosphate (Januvia) 25 mg DAILY ORAL 03/16/20 09:00 04/15/20 08:59 03/18/20 09:29 Sucralfate (Carafate) 1 gm FOUR TIMES A DAY ORAL 03/15/20 13:00 06/13/20 12:59 03/18/20 17:15 Temazepam (Restoril) 15 mg HSPRN PRN ORAL Insomnia 03/14/20 14:15 03/21/20 14:14 03/17/20 21:45 Assessment/Plan Assessment/Plan: Abx: None Assessment: Fever- ?source- r/o bacteremia, COVID, endocarditis No leukocytosis -03/18 CXR: NO ACUTE CARDIOPULMONARY DISEASE. -03/14 CXR: Nonspecific minimal perihilar interstitial prominence and central bronchial wall thickening, could indicate bronchitis or senescent changes. Nodefinite acute process otherwise -2d Echo: no vegetations -Head CT: Negative for acute intracranial bleed or mass effect. Old right basal ganglia lacunar infarct. Minimal age-related volume loss -V. Duplex BLE: No DVT Chest pain, atypical -Trops neg Dm2 CVA w/ residual L side weakness HTN HLD former smoker s/p AVR x2 (Tissue 2011, mechanical 2013) on Xarelto s/p b/l cataract surgery s/p knee replacement s/p appendectomy s/p cholecystectomy Plan: -Start Empiric IV Vancomycin and CEftriaxone -obtain 2 sets of Blood cx prior to initiation of antibiotics -f/u cx -Monitor CBC/CMP, temperatures -u/a w/ reflex -COVID19 isolation and testing -ESR, CRP, HIV ab sc am Thank you for consulting [facility]. Will continue to follow along with you. Discussed wit KECIA. Margarita Rossi M.D. Mar 18, 2020 19:19
[2020-03-18 20:00] VITALS: BP 105/59
[2020-03-18] MEDS: Iron Sucrose 100 MG in NS 55 ML IV SCH (20:58)
[2020-03-18] MEDS ORDERED: Vancomycin 1.25gm/NS Premix IVPB ONE (21:00)
--- NOTE | 2020-03-18 22:03 | General Progress Note ---
Assessment/Plan Assessment/Plan: Assessment - atypical chest/(L) shoulder pain, presumed musculoskeletal - transient nausea, ? reflux - now resolved - s/p EGD/colon about 1.5 years ago - anemia - OB (-) stools - DM - HTN - s/p AVR for - high cholesterol - CVA Recommendations - follow symptoms - check stool OB --> negative - PO as tolerated - no GI endoscopy planned Subjective Allergies: Coded Allergies: TRAMADOL (Verified Allergy, Unknown, 03/14/20) Subjective Feels OK some chest and (L) shoulder pain, but motion related tolerating PO Objective Last 24 Hour Vital Signs Date Time Temp Pulse Resp B/P (MAP) Pulse Ox O2 Delivery O2 Flow Rate FiO2 03/18/20 20:21 81 18 95 Room Air 21 03/18/20 17:46 99.7 03/18/20 16:00 100.2 74 19 105/93 (97) 96 03/18/20 15:10 74 03/18/20 12:00 101.1 77 19 106/60 (75) 96 03/18/20 11:41 70 03/18/20 09:29 103/63 03/18/20 09:00 Room Air 03/18/20 08:00 98.1 70 18 103/63 (76) 96 03/18/20 07:42 70 03/18/20 04:00 71 03/18/20 04:00 98.1 77 18 109/62 (78) 95 03/18/20 00:00 75 03/18/20 00:00 97.7 75 18 104/59 (74) 96 Intake and Output 03/17/20 03/18/20 19:00 07:00 Intake Total 920 ml Output Total 1600 ml Balance -680 ml Intake Oral 920 ml Output Urine Total 1600 ml # Voids 6 2 Laboratory Tests 03/18/20 05:45: White Blood Count 8.2, Red Blood Count 3.42L, Hemoglobin 9.2L, Hematocrit 30.6L , Mean Corpuscular Volume 89, Mean Corpuscular Hemoglobin 26.9L, Mean Corpuscular Hemoglobin Concent 30.2L, Red Cell Distribution Width 15.0H, Platelet Count 198, Mean Platelet Volume 6.3L, Neutrophils (%) (Auto) 59.5, Lymphocytes (%) (Auto) 31.6, Monocytes (%) (Auto) 6.2, Eosinophils (%) (Auto) 2.0, Basophils (%) (Auto) 0.7, Sodium Level 139, Potassium Level 3.9, Chloride Level 102, Carbon Dioxide Level 29, Anion Gap 8, Blood Urea Nitrogen 14, Creatinine 1.2, Estimat Glomerular Filtration Rate 44.3, Glucose Level 260H, Calcium Level 8.5 Height (Feet): 5 Height (Inches): 3.00 Weight (Pounds): 160 Objective NCAT supple CTA RR abd soft (+) frozen (L) shoulder Quinn Sloan MD Mar 18, 2020 22:03
[2020-03-18] MEDS: cefTRIAXone 1 GM in D5W 55 ML IVPB SCH (22:22)
[2020-03-19] VITALS: BP 109/60
[2020-03-19 04:00] VITALS: BP 127/73
[2020-03-19 04:38] LABS: BASOPHILS % (AUTO) 0.7 % (0.0-2.0); EOSINOPHILS % (AUTO) 1.1 % (0.0-3.0); HEMATOCRIT 30.1 % (37.0-47.0); HEMOGLOBIN 9.4 G/DL (12.0-16.0); LYMPHOCYTES % (AUTO) 26.3 % (20.0-45.0); MEAN CORPUSCULAR VOLUME 89 FL (80-99); MONOCYTES % (AUTO) 7.1 % (1.0-10.0); NEUTROPHILS % (AUTO) 64.9 % (45.0-75.0); PLATELET COUNT 215 K/UL (150-450); RED BLOOD COUNT 3.36 M/UL (4.20-5.40); RED CELL DISTRIBUTION WIDTH 15.6 % (11.6-14.8); WHITE BLOOD COUNT 10.4 K/UL (4.8-10.8)
[2020-03-19 05:29] LABS: ALANINE AMINOTRANSFERASE 24 U/L (12-78); ALBUMIN 2.6 G/DL (3.4-5.0); ALBUMIN/GLOBULIN RATIO 0.6 (1.0-2.7); ALKALINE PHOSPHATASE 139 U/L (46-116); ANION GAP 9 mmol/L (5-15); ASPARTATE AMINO TRANSFERASE 17 U/L (15-37); BILIRUBIN,TOTAL 0.5 MG/DL (0.2-1.0); BLOOD UREA NITROGEN 19 mg/dL (7-18); CALCIUM 8.4 MG/DL (8.5-10.1); CARBON DIOXIDE 27 MMOL/L (21-32); CHLORIDE 103 MMOL/L (98-107); CREATININE 1.4 MG/DL (0.55-1.30); POTASSIUM 3.9 MMOL/L (3.5-5.1); SODIUM 139 MMOL/L (136-145)
[2020-03-19] MEDS: Morphine Sulfate 2mg/ml Inj(IV/IM USE ONLY) IVP PRN ×3 (05:31→21:14)
[2020-03-19] MEDS: NovoLOG Insulin Flexpen SUBQ SCH ×4 (06:05→20:16)
[2020-03-19 06:31] LABS: APPEARANCE,URINE SLIGHTLY CLOUDY; BILIRUBIN, URINE NEGATIVE (NEGATIVE); COLOR,URINE PALE YELLOW; GLUCOSE, URINE (UA) NEGATIVE (NEGATIVE); KETONES,URINE NEGATIVE (NEGATIVE); LEUKOCYTE ESTERASE ,URINE 3+ (NEGATIVE); NITRITE,URINE NEGATIVE (NEGATIVE); PH,URINE 8 (4.5-8.0); PROTEIN,URINE 3+ (NEGATIVE); UROBILINOGEN,URINE 4 MG/DL (0.0-1.0)
[2020-03-19 08:00] VITALS: BP 104/40
[2020-03-19] MEDS: sitaGLIPtin 25mg tab ORAL SCH (09:01)
[2020-03-19] MEDS: Sucralfate 1gm tab ORAL SCH ×4 (09:01→20:13)
[2020-03-19] MEDS: Aspirin Baby 81mg ORAL SCH (09:01)
[2020-03-19] MEDS: Losartan 25mg tab ORAL SCH (09:01)
[2020-03-19] MEDS: Xarelto 10mg tab ORAL SCH (09:02)
--- NOTE | 2020-03-19 11:00 | Pulmonology Progress Note ---
Subjective ROS Limited/Unobtainable: No Interval Events: Constitutional: Reports: no symptoms HEENT: Repors: no symptoms Allergies: Coded Allergies: TRAMADOL (Verified Allergy, Unknown, 03/14/20) Objective Last 24 Hour Vital Signs Date Time Temp Pulse Resp B/P (MAP) Pulse Ox O2 Delivery O2 Flow Rate FiO2 03/19/20 09:01 104/40 03/19/20 09:00 Room Air 03/19/20 08:00 98.8 79 20 104/40 (61) 95 03/19/20 07:45 78 03/19/20 07:06 99.9 03/19/20 06:01 97.7 03/19/20 04:00 86 03/19/20 04:00 100.8 86 19 127/73 (91) 95 03/19/20 00:00 97.7 81 19 109/60 (76) 94 03/19/20 00:00 78 03/18/20 21:00 Room Air 03/18/20 20:21 81 18 95 Room Air 21 03/18/20 20:00 86 03/18/20 20:00 98.0 78 18 105/59 (74) 93 03/18/20 16:00 100.2 74 19 105/93 (97) 96 03/18/20 15:10 74 03/18/20 12:00 101.1 77 19 106/60 (75) 96 03/18/20 11:41 70 Intake and Output 03/18/20 03/19/20 19:00 07:00 Intake Total 140 ml 200 ml Output Total 1200 ml 600 ml Balance -1060 ml -400 ml Intake Oral 140 ml 200 ml Output Urine Total 1200 ml 600 ml # Voids 3 General Appearance: WD/WN HEENT: normocephalic, atraumatic Respiratory: chest wall non-tender, lungs clear Cardiovascular: normal peripheral pulses, normal rate Abdomen: normal bowel sounds, soft, non tender Extremities: pedal pulses normal Skin: no rash Neurologic: no motor/sensory deficits, alert, oriented x 3, responsive Musculoskeletal: normal muscle bulk Laboratory Tests 03/19/20 04:00: White Blood Count 10.4, Red Blood Count 3.36L, Hemoglobin 9.4L, Hematocrit 30.1L , Mean Corpuscular Volume 89, Mean Corpuscular Hemoglobin 27.8, Mean Corpuscular Hemoglobin Concent 31.1L, Red Cell Distribution Width 15.6H, Platelet Count 215, Mean Platelet Volume 6.7, Neutrophils (%) (Auto) 64.9, Lymphocytes (%) (Auto) 26.3, Monocytes (%) (Auto) 7.1, Eosinophils (%) (Auto) 1.1, Basophils (%) (Auto) 0.7, Erythrocyte Sedimentation Rate 111H, Urine Color Pale yellow, Urine Appearance Slightly cloudy, Urine pH 8, Urine Specific [place] 1.010, Urine Protein 3+H, Urine Glucose (UA) Negative, Urine Ketones Negative, Urine Blood 4+H, Urine Nitrite Negative, Urine Bilirubin Negative, Urine Urobilinogen 4H, Urine Leukocyte Esterase 3+H, Urine RBC 5-10H, Urine WBC 10-15H, Urine Squamous Epithelial Cells Few, Urine Bacteria ManyH, Sodium Level 139, Potassium Level 3.9, Chloride Level 103, Carbon Dioxide Level 27, Anion Gap 9, Blood Urea Nitrogen 19H, Creatinine 1.4H, Estimat Glomerular Filtration Rate 37.1, Glucose Level 227H, Calcium Level 8.4L, Total Bilirubin 0.5, Aspartate Amino Transf (AST/SGOT) 17, Alanine Aminotransferase (ALT/SGPT) 24, Alkaline Phosphatase 139H, C-Reactive Protein, Quantitative 7.5H, Total Protein 6.9, Albumin 2.6L, Globulin 4.3, Albumin/Globulin Ratio 0.6L, Lipase 78, HIV (1& 2) Antibody Rapid Negative Current Medications Medications (Trade) Dose Ordered Sig/Ran Route PRN Reason Start Time Stop Time Status Last Admin Dose Admin Acetaminophen (Tylenol) 650 mg Q4H PRN ORAL FEVER 03/14/20 14:15 04/13/20 14:14 03/19/20 06:36 Acetaminophen (Tylenol) 650 mg Q6H PRN ORAL Pain Scale (3-5) TEMP > 100.5 03/16/20 18:30 04/15/20 18:29 Albuterol/ Ipratropium (Albuterol/ Ipratropium) 3 ml Q4H PRN HHN Shortness of Breath 03/14/20 14:15 03/19/20 14:14 Aspirin (ASA) 162 mg DAILY ORAL 03/15/20 09:00 04/29/20 08:59 03/19/20 09:01 Ceftriaxone Sodium 1 gm/ Dextrose 55 ml @ 110 mls/hr Q24H IVPB 03/18/20 22:00 03/25/20 21:59 03/18/20 22:22 Dextrose (Dextrose 50%) 25 ml Q30M PRN IV Hypoglycemia 03/14/20 14:30 06/12/20 14:29 Dextrose (Dextrose 50%) 50 ml Q30M PRN IV Hypoglycemia 03/14/20 14:30 06/12/20 14:29 Diltiazem HCl (Cardizem) 10 mg Q1H PRN IV heart rate more than 120, 03/14/20 14:15 04/13/20 14:14 Enalaprilat (Vasotec) 2.5 mg Q6H PRN IV sbp more than 160 03/14/20 14:15 04/13/20 14:14 Folic Acid (Folate) 1 mg DAILY ORAL 03/17/20 09:00 04/16/20 08:59 03/19/20 09:01 Gabapentin (Neurontin) 300 mg THREE TIMES A DAY ORAL 03/15/20 13:00 04/14/20 12:59 03/19/20 09:01 Insulin Aspart (NovoLOG) BEFORE MEALS AND HS SUBQ 03/14/20 16:30 06/12/20 16:29 03/19/20 06:05 Iron Sucrose 100 mg/Sodium Chloride 60 ml @ 240 mls/hr BEDTIME IV 03/16/20 21:00 03/20/20 21:14 03/18/20 20:58 Losartan Potassium (Cozaar) 25 mg DAILY ORAL 03/16/20 09:00 04/15/20 08:59 03/19/20 09:01 Morphine Sulfate (Morphine Sulfate) 2 mg Q4H PRN IVP Moderate Pain (Pain Scale 4-6) 03/14/20 17:30 03/21/20 17:29 03/19/20 05:31 Morphine Sulfate (Morphine Sulfate) 4 mg Q4H PRN IVP Severe Pain (Pain Scale 7-10) 03/14/20 17:30 03/21/20 17:29 03/15/20 13:11 Nitroglycerin (Ntg) 0.4 mg Q5M PRN SL Prn Chest Pain 03/14/20 14:15 04/13/20 14:14 Ondansetron HCl (Zofran) 4 mg Q6H PRN IVP Nausea & Vomiting 03/14/20 14:15 04/13/20 14:14 Pantoprazole (Protonix) 40 mg EVERY 12 HOURS ORAL 03/15/20 13:00 04/14/20 12:59 03/19/20 09:01 Polyethylene Glycol (Miralax) 17 gm DAILYPRN PRN ORAL Constipation 03/14/20 14:15 04/13/20 14:14 03/17/20 06:15 Rivaroxaban (Xarelto) 10 mg DAILY ORAL 03/16/20 09:00 06/14/20 08:59 03/19/20 09:02 Sitagliptin Phosphate (Januvia) 25 mg DAILY ORAL 03/16/20 09:00 04/15/20 08:59 03/19/20 09:01 Sucralfate (Carafate) 1 gm FOUR TIMES A DAY ORAL 03/15/20 13:00 06/13/20 12:59 03/19/20 09:01 Temazepam (Restoril) 15 mg HSPRN PRN ORAL Insomnia 03/14/20 14:15 03/21/20 14:14 03/17/20 21:45 Vancomycin HCl (Vanco pharmacy to dose) 1 ea DAILY PRN MISC Per rx protocol 03/18/20 19:15 04/17/20 19:14 Vancomycin HCl 750 mg/Sodium Chloride 275 ml @ 183.333 mls/hr Q24H IVPB 03/19/20 21:00 03/24/20 20:59 Assessment/Plan Problems: (1) ACS (acute coronary syndrome) (2) CAD (coronary artery disease) (3) Chronic anticoagulation (4) History of CVA (cerebrovascular accident) (5) Left-sided weakness (6) Diabetes mellitus Assessment/Plan ID note appreciated. Adhikari culture Urine analysis noted started on Vancomycine and ceftriaxone. serial ekg, troponin echocardiogram reviewed: EF 55%, PA pressure 50 Cardiology siding scale diabetic diet dvt prophylaxis. Aurea Kirby MD Mar 19, 2020 11:00
--- NOTE | 2020-03-19 11:19 | Diagnostic Imaging Report ---
EXAM: X-RAY XRAY Shoulder Compl L CLINICAL HISTORY: Shoulder pain. COMPARISON: None FINDINGS: Total of 3 views of the shoulder were obtained. Alignment is anatomic. There is no fracture, bony lesions or erosions. Degenerative changes noted with joint space narrowing and acromial spurring. Impingement space is quite narrowed suggesting possible underlying rotator cuff abnormality. Surrounding soft tissue is normal. IMPRESSION: DEGENERATIVE CHANGES OF THE SHOULDER WITH NARROWING OF THE IMPINGEMENT SPACE SUGGESTING UNDERLYING ROTATOR CUFF ABNORMALITY. NO ACUTE BONY ABNORMALITY.
[2020-03-19 12:00] VITALS: BP 105/45
--- NOTE | 2020-03-19 13:27 | Infectious Diseases Prog Note ---
Assessment/Plan Assessment/Plan Assessment: Fever- ?source- r/o bacteremia, COVID, endocarditis No leukocytosis -03/19 u/a wbc 10-15, nit neg, leuk +3; ucx p -03/18 CXR: NO ACUTE CARDIOPULMONARY DISEASE. -03/14 CXR: Nonspecific minimal perihilar interstitial prominence and central bronchial wall thickening, could indicate bronchitis or senescent changes. Nodefinite acute process otherwise -2d Echo: no vegetations -Head CT: Negative for acute intracranial bleed or mass effect. Old right basal ganglia lacunar infarct. Minimal age-related volume loss -V. Duplex BLE: No DVT -HIV ab screen neg Chest pain, atypical -Trops neg L shoulder pain -Shoulder xray: DEGENERATIVE CHANGES OF THE SHOULDER WITH NARROWING OF THE IMPINGEMENT SPACE SUGGESTING UNDERLYING ROTATOR CUFF ABNORMALITY. NO ACUTE BONY ABNORMALITY. Dm2 CVA w/ residual L side weakness HTN HLD former smoker s/p AVR x2 (Tissue 2011, mechanical 2013) on Xarelto s/p b/l cataract surgery s/p knee replacement s/p appendectomy s/p cholecystectomy Plan: -Cont Empiric IV Vancomycin and CEftriaxone #2 -f/u cx (Bl, ucx) -Monitor CBC/CMP, temperatures -COVID19 isolation and testing Thank you for consulting [facility]. Will continue to follow along with you. Abelino leon RN. Subjective Allergies: Coded Allergies: TRAMADOL (Verified Allergy, Unknown, 03/14/20) Subjective TM 100.8 at RA no leukocytosis Cr increased Objective Vital Signs Last 24 Hour Vital Signs Date Time Temp Pulse Resp B/P (MAP) Pulse Ox O2 Delivery O2 Flow Rate FiO2 03/19/20 12:00 97.5 74 20 105/45 (65) 96 03/19/20 11:55 75 03/19/20 09:01 104/40 03/19/20 09:00 Room Air 03/19/20 08:00 98.8 79 20 104/40 (61) 95 03/19/20 07:45 78 03/19/20 07:06 99.9 03/19/20 06:01 97.7 03/19/20 04:00 86 03/19/20 04:00 100.8 86 19 127/73 (91) 95 03/19/20 00:00 97.7 81 19 109/60 (76) 94 03/19/20 00:00 78 03/18/20 21:00 Room Air 03/18/20 20:21 81 18 95 Room Air 21 03/18/20 20:00 86 03/18/20 20:00 98.0 78 18 105/59 (74) 93 03/18/20 16:00 100.2 74 19 105/93 (97) 96 03/18/20 15:10 74 Height (Feet): 5 Height (Inches): 3.00 Weight (Pounds): 160 Objective not examined to limit COVID19 exposure Laboratory Tests Test 03/19/20 04:00 White Blood Count 10.4 K/UL (4.8-10.8) Red Blood Count 3.36 M/UL (4.20-5.40) L Hemoglobin 9.4 G/DL (12.0-16.0) L Hematocrit 30.1 % (37.0-47.0) L Mean Corpuscular Volume 89 FL (80-99) Mean Corpuscular Hemoglobin 27.8 PG (27.0-31.0) Mean Corpuscular Hemoglobin Concent 31.1 G/DL (32.0-36.0) L Red Cell Distribution Width 15.6 % (11.6-14.8) H Platelet Count 215 K/UL (150-450) Mean Platelet Volume 6.7 FL (6.5-10.1) Neutrophils (%) (Auto) 64.9 % (45.0-75.0) Lymphocytes (%) (Auto) 26.3 % (20.0-45.0) Monocytes (%) (Auto) 7.1 % (1.0-10.0) Eosinophils (%) (Auto) 1.1 % (0.0-3.0) Basophils (%) (Auto) 0.7 % (0.0-2.0) Erythrocyte Sedimentation Rate 111 MM/HR (0-30) H Urine Color Pale yellow Urine Appearance Slightly cloudy Urine pH 8 (4.5-8.0) Urine Specific [place] 1.010 (1.005-1.035) Urine Protein 3+ (NEGATIVE) H Urine Glucose (UA) Negative (NEGATIVE) Urine Ketones Negative (NEGATIVE) Urine Blood 4+ (NEGATIVE) H Urine Nitrite Negative (NEGATIVE) Urine Bilirubin Negative (NEGATIVE) Urine Urobilinogen 4 MG/DL (0.0-1.0) H Urine Leukocyte Esterase 3+ (NEGATIVE) H Urine RBC 5-10 /HPF (0 - 2) H Urine WBC 10-15 /HPF (0 - 2) H Urine Squamous Epithelial Cells Few /LPF (NONE/OCC) Urine Bacteria Many /HPF (NONE) H Sodium Level 139 MMOL/L (136-145) Potassium Level 3.9 MMOL/L (3.5-5.1) Chloride Level 103 MMOL/L (98-107) Carbon Dioxide Level 27 MMOL/L (21-32) Anion Gap 9 mmol/L (5-15) Blood Urea Nitrogen 19 mg/dL (7-18) H Creatinine 1.4 MG/DL (0.55-1.30) H Estimat Glomerular Filtration Rate 37.1 mL/min (>60) Glucose Level 227 MG/DL (74-106) H Calcium Level 8.4 MG/DL (8.5-10.1) L Total Bilirubin 0.5 MG/DL (0.2-1.0) Aspartate Amino Transf (AST/SGOT) 17 U/L (15-37) Alanine Aminotransferase (ALT/SGPT) 24 U/L (12-78) Alkaline Phosphatase 139 U/L (46-116) H C-Reactive Protein, Quantitative 7.5 mg/dL (0.00-0.90) H Total Protein 6.9 G/DL (6.4-8.2) Albumin 2.6 G/DL (3.4-5.0) L Globulin 4.3 g/dL Albumin/Globulin Ratio 0.6 (1.0-2.7) L Lipase 78 U/L (73-393) HIV (1&2) Antibody Rapid Negative (NEGATIVE) Current Medications Medications (Trade) Dose Ordered Sig/Ran Route PRN Reason Start Time Stop Time Status Last Admin Dose Admin Acetaminophen (Tylenol) 650 mg Q4H PRN ORAL FEVER 03/14/20 14:15 04/13/20 14:14 03/19/20 06:36 Acetaminophen (Tylenol) 650 mg Q6H PRN ORAL Pain Scale (3-5) TEMP > 100.5 03/16/20 18:30 04/15/20 18:29 Albuterol/ Ipratropium (Albuterol/ Ipratropium) 3 ml Q4H PRN HHN Shortness of Breath 03/14/20 14:15 03/19/20 14:14 Aspirin (ASA) 162 mg DAILY ORAL 03/15/20 09:00 04/29/20 08:59 03/19/20 09:01 Ceftriaxone Sodium 1 gm/ Dextrose 55 ml @ 110 mls/hr Q24H IVPB 03/18/20 22:00 03/25/20 21:59 03/18/20 22:22 Dextrose (Dextrose 50%) 25 ml Q30M PRN IV Hypoglycemia 03/14/20 14:30 06/12/20 14:29 Dextrose (Dextrose 50%) 50 ml Q30M PRN IV Hypoglycemia 03/14/20 14:30 06/12/20 14:29 Diltiazem HCl (Cardizem) 10 mg Q1H PRN IV heart rate more than 120, 03/14/20 14:15 04/13/20 14:14 Enalaprilat (Vasotec) 2.5 mg Q6H PRN IV sbp more than 160 03/14/20 14:15 04/13/20 14:14 Folic Acid (Folate) 1 mg DAILY ORAL 03/17/20 09:00 04/16/20 08:59 03/19/20 09:01 Gabapentin (Neurontin) 300 mg THREE TIMES A DAY ORAL 03/15/20 13:00 04/14/20 12:59 03/19/20 12:13 Insulin Aspart (NovoLOG) BEFORE MEALS AND HS SUBQ 03/14/20 16:30 06/12/20 16:29 03/19/20 12:15 Iron Sucrose 100 mg/Sodium Chloride 60 ml @ 240 mls/hr BEDTIME IV 03/16/20 21:00 03/20/20 21:14 03/18/20 20:58 Losartan Potassium (Cozaar) 25 mg DAILY ORAL 03/16/20 09:00 04/15/20 08:59 03/19/20 09:01 Morphine Sulfate (Morphine Sulfate) 2 mg Q4H PRN IVP Moderate Pain (Pain Scale 4-6) 03/14/20 17:30 03/21/20 17:29 03/19/20 12:14 Morphine Sulfate (Morphine Sulfate) 4 mg Q4H PRN IVP Severe Pain (Pain Scale 7-10) 03/14/20 17:30 03/21/20 17:29 03/15/20 13:11 Nitroglycerin (Ntg) 0.4 mg Q5M PRN SL Prn Chest Pain 03/14/20 14:15 04/13/20 14:14 Ondansetron HCl (Zofran) 4 mg Q6H PRN IVP Nausea & Vomiting 03/14/20 14:15 04/13/20 14:14 Pantoprazole (Protonix) 40 mg EVERY 12 HOURS ORAL 03/15/20 13:00 04/14/20 12:59 03/19/20 09:01 Polyethylene Glycol (Miralax) 17 gm DAILYPRN PRN ORAL Constipation 03/14/20 14:15 04/13/20 14:14 03/17/20 06:15 Rivaroxaban (Xarelto) 10 mg DAILY ORAL 03/16/20 09:00 06/14/20 08:59 03/19/20 09:02 Sitagliptin Phosphate (Januvia) 25 mg DAILY ORAL 03/16/20 09:00 04/15/20 08:59 03/19/20 09:01 Sucralfate (Carafate) 1 gm FOUR TIMES A DAY ORAL 03/15/20 13:00 06/13/20 12:59 03/19/20 12:13 Temazepam (Restoril) 15 mg HSPRN PRN ORAL Insomnia 03/14/20 14:15 03/21/20 14:14 03/17/20 21:45 Vancomycin HCl (Vanco pharmacy to dose) 1 ea DAILY PRN MISC Per rx protocol 03/18/20 19:15 04/17/20 19:14 Vancomycin HCl 750 mg/Sodium Chloride 275 ml @ 183.333 mls/hr Q24H IVPB 03/19/20 21:00 03/24/20 20:59 Margarita Rossi M.D. Mar 19, 2020 13:27
--- NOTE | 2020-03-19 13:34 | Cardiology Progress Note ---
Assessment/Plan Assessment/Plan 1. Chest pain probable chest wall tenderness 2. History of aortic valve replacement x2. 3. History of CVA. 4. Diabetes mellitus. 5. History of hypertension. 6. History of hyperlipidemia. 7. Fevers. 8. Left-sided weakness vs pain induced decresed motion previously: echo noted normal wall motion no effusion has pulm htn ekg not change trop neg despite several days of pain venous duplex neg for dvt pain was reproducible on the chest wall palpation no further cardiac salgado at this time out pt fu at this time: tele sinus fever salgado per id bp border line will dc cozaar for nwo esr sig elelvated Subjective Subjective pt is still in covid isolation so i did not see her , per rn had low grade fever earlier to day no cough and still with cp hads oem PT , no diarrrhea no vomit no problem with uriantion Objective Last 24 Hour Vital Signs Date Time Temp Pulse Resp B/P (MAP) Pulse Ox O2 Delivery O2 Flow Rate FiO2 03/19/20 12:00 97.5 74 20 105/45 (65) 96 03/19/20 11:55 75 03/19/20 09:01 104/40 03/19/20 09:00 Room Air 03/19/20 08:00 98.8 79 20 104/40 (61) 95 03/19/20 07:45 78 03/19/20 07:06 99.9 03/19/20 06:01 97.7 03/19/20 04:00 86 03/19/20 04:00 100.8 86 19 127/73 (91) 95 03/19/20 00:00 97.7 81 19 109/60 (76) 94 03/19/20 00:00 78 03/18/20 21:00 Room Air 03/18/20 20:21 81 18 95 Room Air 21 03/18/20 20:00 86 03/18/20 20:00 98.0 78 18 105/59 (74) 93 03/18/20 16:00 100.2 74 19 105/93 (97) 96 03/18/20 15:10 74 Intake and Output 03/18/20 03/19/20 19:00 07:00 Intake Total 140 ml 200 ml Output Total 1200 ml 600 ml Balance -1060 ml -400 ml Intake Oral 140 ml 200 ml Output Urine Total 1200 ml 600 ml # Voids 3 Laboratory Tests Test 03/19/20 04:00 White Blood Count 10.4 K/UL (4.8-10.8) Red Blood Count 3.36 M/UL (4.20-5.40) L Hemoglobin 9.4 G/DL (12.0-16.0) L Hematocrit 30.1 % (37.0-47.0) L Mean Corpuscular Volume 89 FL (80-99) Mean Corpuscular Hemoglobin 27.8 PG (27.0-31.0) Mean Corpuscular Hemoglobin Concent 31.1 G/DL (32.0-36.0) L Red Cell Distribution Width 15.6 % (11.6-14.8) H Platelet Count 215 K/UL (150-450) Mean Platelet Volume 6.7 FL (6.5-10.1) Neutrophils (%) (Auto) 64.9 % (45.0-75.0) Lymphocytes (%) (Auto) 26.3 % (20.0-45.0) Monocytes (%) (Auto) 7.1 % (1.0-10.0) Eosinophils (%) (Auto) 1.1 % (0.0-3.0) Basophils (%) (Auto) 0.7 % (0.0-2.0) Erythrocyte Sedimentation Rate 111 MM/HR (0-30) H Urine Color Pale yellow Urine Appearance Slightly cloudy Urine pH 8 (4.5-8.0) Urine Specific [place] 1.010 (1.005-1.035) Urine Protein 3+ (NEGATIVE) H Urine Glucose (UA) Negative (NEGATIVE) Urine Ketones Negative (NEGATIVE) Urine Blood 4+ (NEGATIVE) H Urine Nitrite Negative (NEGATIVE) Urine Bilirubin Negative (NEGATIVE) Urine Urobilinogen 4 MG/DL (0.0-1.0) H Urine Leukocyte Esterase 3+ (NEGATIVE) H Urine RBC 5-10 /HPF (0 - 2) H Urine WBC 10-15 /HPF (0 - 2) H Urine Squamous Epithelial Cells Few /LPF (NONE/OCC) Urine Bacteria Many /HPF (NONE) H Sodium Level 139 MMOL/L (136-145) Potassium Level 3.9 MMOL/L (3.5-5.1) Chloride Level 103 MMOL/L (98-107) Carbon Dioxide Level 27 MMOL/L (21-32) Anion Gap 9 mmol/L (5-15) Blood Urea Nitrogen 19 mg/dL (7-18) H Creatinine 1.4 MG/DL (0.55-1.30) H Estimat Glomerular Filtration Rate 37.1 mL/min (>60) Glucose Level 227 MG/DL (74-106) H Calcium Level 8.4 MG/DL (8.5-10.1) L Total Bilirubin 0.5 MG/DL (0.2-1.0) Aspartate Amino Transf (AST/SGOT) 17 U/L (15-37) Alanine Aminotransferase (ALT/SGPT) 24 U/L (12-78) Alkaline Phosphatase 139 U/L (46-116) H C-Reactive Protein, Quantitative 7.5 mg/dL (0.00-0.90) H Total Protein 6.9 G/DL (6.4-8.2) Albumin 2.6 G/DL (3.4-5.0) L Globulin 4.3 g/dL Albumin/Globulin Ratio 0.6 (1.0-2.7) L Lipase 78 U/L (73-393) HIV (1&2) Antibody Rapid Negative (NEGATIVE) Objective i did not examin pt as pt now in covid isolation Geraldo Daley MD Mar 19, 2020 13:34
[2020-03-19 16:00] VITALS: BP 105/47
--- NOTE | 2020-03-19 16:29 | Internal Med Progress Note ---
Subjective Date of Service: Mar 19, 2020 Physician Name YolyDimitris Attending Physician Humberto Williamson MD Current Medications Medications (Trade) Dose Ordered Sig/Ran Route PRN Reason Start Time Stop Time Status Last Admin Dose Admin Acetaminophen (Tylenol) 650 mg Q4H PRN ORAL FEVER 03/14/20 14:15 04/13/20 14:14 03/19/20 06:36 Acetaminophen (Tylenol) 650 mg Q6H PRN ORAL Pain Scale (3-5) TEMP > 100.5 03/16/20 18:30 04/15/20 18:29 Aspirin (ASA) 162 mg DAILY ORAL 03/15/20 09:00 04/29/20 08:59 03/19/20 09:01 Ceftriaxone Sodium 1 gm/ Dextrose 55 ml @ 110 mls/hr Q24H IVPB 03/18/20 22:00 03/25/20 21:59 03/18/20 22:22 Dextrose (Dextrose 50%) 25 ml Q30M PRN IV Hypoglycemia 03/14/20 14:30 06/12/20 14:29 Dextrose (Dextrose 50%) 50 ml Q30M PRN IV Hypoglycemia 03/14/20 14:30 06/12/20 14:29 Diltiazem HCl (Cardizem) 10 mg Q1H PRN IV heart rate more than 120, 03/14/20 14:15 04/13/20 14:14 Enalaprilat (Vasotec) 2.5 mg Q6H PRN IV sbp more than 160 03/14/20 14:15 04/13/20 14:14 Folic Acid (Folate) 1 mg DAILY ORAL 03/17/20 09:00 04/16/20 08:59 03/19/20 09:01 Gabapentin (Neurontin) 300 mg THREE TIMES A DAY ORAL 03/15/20 13:00 04/14/20 12:59 03/19/20 12:13 Insulin Aspart (NovoLOG) BEFORE MEALS AND HS SUBQ 03/14/20 16:30 06/12/20 16:29 03/19/20 12:15 Iron Sucrose 100 mg/Sodium Chloride 60 ml @ 240 mls/hr BEDTIME IV 03/16/20 21:00 03/20/20 21:14 03/18/20 20:58 Morphine Sulfate (Morphine Sulfate) 2 mg Q4H PRN IVP Moderate Pain (Pain Scale 4-6) 03/14/20 17:30 03/21/20 17:29 03/19/20 12:14 Morphine Sulfate (Morphine Sulfate) 4 mg Q4H PRN IVP Severe Pain (Pain Scale 7-10) 03/14/20 17:30 03/21/20 17:29 03/15/20 13:11 Nitroglycerin (Ntg) 0.4 mg Q5M PRN SL Prn Chest Pain 03/14/20 14:15 04/13/20 14:14 Ondansetron HCl (Zofran) 4 mg Q6H PRN IVP Nausea & Vomiting 03/14/20 14:15 04/13/20 14:14 Pantoprazole (Protonix) 40 mg EVERY 12 HOURS ORAL 03/15/20 13:00 04/14/20 12:59 03/19/20 09:01 Polyethylene Glycol (Miralax) 17 gm DAILYPRN PRN ORAL Constipation 03/14/20 14:15 04/13/20 14:14 03/17/20 06:15 Rivaroxaban (Xarelto) 10 mg DAILY ORAL 03/16/20 09:00 06/14/20 08:59 03/19/20 09:02 Sitagliptin Phosphate (Januvia) 25 mg DAILY ORAL 03/16/20 09:00 04/15/20 08:59 03/19/20 09:01 Sucralfate (Carafate) 1 gm FOUR TIMES A DAY ORAL 03/15/20 13:00 06/13/20 12:59 03/19/20 12:13 Temazepam (Restoril) 15 mg HSPRN PRN ORAL Insomnia 03/14/20 14:15 03/21/20 14:14 03/17/20 21:45 Vancomycin HCl (Vanco pharmacy to dose) 1 ea DAILY PRN MISC Per rx protocol 03/18/20 19:15 04/17/20 19:14 Vancomycin HCl 750 mg/Sodium Chloride 275 ml @ 183.333 mls/hr Q24H IVPB 03/19/20 21:00 03/24/20 20:59 Allergies: Coded Allergies: TRAMADOL (Verified Allergy, Unknown, 03/14/20) ROS Limited/Unobtainable: No Constitutional: Reports: no symptoms HEENT: Reports: no symptoms Cardiovascular: Reports: no symptoms Respiratory: Reports: no symptoms Gastrointestinal/Abdominal: Reports: no symptoms Genitourinary: Reports: no symptoms Neurologic/Psychiatric: Reports: no symptoms Subjective 69 YO F admitted with chest pain. Cover for Reilly Escmailla-Dr Williamson. Fever to 100.8 F Objective Last Vital Signs Date Time Temp Pulse Resp B/P (MAP) Pulse Ox O2 Delivery O2 Flow Rate FiO2 03/19/20 15:35 74 03/19/20 12:00 97.5 20 105/45 (65) 96 03/19/20 09:00 Room Air 03/18/20 20:21 21 Laboratory Tests Test 03/19/20 04:00 White Blood Count 10.4 K/UL (4.8-10.8) Red Blood Count 3.36 M/UL (4.20-5.40) L Hemoglobin 9.4 G/DL (12.0-16.0) L Hematocrit 30.1 % (37.0-47.0) L Mean Corpuscular Volume 89 FL (80-99) Mean Corpuscular Hemoglobin 27.8 PG (27.0-31.0) Mean Corpuscular Hemoglobin Concent 31.1 G/DL (32.0-36.0) L Red Cell Distribution Width 15.6 % (11.6-14.8) H Platelet Count 215 K/UL (150-450) Mean Platelet Volume 6.7 FL (6.5-10.1) Neutrophils (%) (Auto) 64.9 % (45.0-75.0) Lymphocytes (%) (Auto) 26.3 % (20.0-45.0) Monocytes (%) (Auto) 7.1 % (1.0-10.0) Eosinophils (%) (Auto) 1.1 % (0.0-3.0) Basophils (%) (Auto) 0.7 % (0.0-2.0) Erythrocyte Sedimentation Rate 111 MM/HR (0-30) H Urine Color Pale yellow Urine Appearance Slightly cloudy Urine pH 8 (4.5-8.0) Urine Specific [place] 1.010 (1.005-1.035) Urine Protein 3+ (NEGATIVE) H Urine Glucose (UA) Negative (NEGATIVE) Urine Ketones Negative (NEGATIVE) Urine Blood 4+ (NEGATIVE) H Urine Nitrite Negative (NEGATIVE) Urine Bilirubin Negative (NEGATIVE) Urine Urobilinogen 4 MG/DL (0.0-1.0) H Urine Leukocyte Esterase 3+ (NEGATIVE) H Urine RBC 5-10 /HPF (0 - 2) H Urine WBC 10-15 /HPF (0 - 2) H Urine Squamous Epithelial Cells Few /LPF (NONE/OCC) Urine Bacteria Many /HPF (NONE) H Sodium Level 139 MMOL/L (136-145) Potassium Level 3.9 MMOL/L (3.5-5.1) Chloride Level 103 MMOL/L (98-107) Carbon Dioxide Level 27 MMOL/L (21-32) Anion Gap 9 mmol/L (5-15) Blood Urea Nitrogen 19 mg/dL (7-18) H Creatinine 1.4 MG/DL (0.55-1.30) H Estimat Glomerular Filtration Rate 37.1 mL/min (>60) Glucose Level 227 MG/DL (74-106) H Calcium Level 8.4 MG/DL (8.5-10.1) L Total Bilirubin 0.5 MG/DL (0.2-1.0) Aspartate Amino Transf (AST/SGOT) 17 U/L (15-37) Alanine Aminotransferase (ALT/SGPT) 24 U/L (12-78) Alkaline Phosphatase 139 U/L (46-116) H C-Reactive Protein, Quantitative 7.5 mg/dL (0.00-0.90) H Total Protein 6.9 G/DL (6.4-8.2) Albumin 2.6 G/DL (3.4-5.0) L Globulin 4.3 g/dL Albumin/Globulin Ratio 0.6 (1.0-2.7) L Lipase 78 U/L (73-393) HIV (1&2) Antibody Rapid Negative (NEGATIVE) Intake and Output 03/18/20 03/19/20 19:00 07:00 Intake Total 140 ml 200 ml Output Total 1200 ml 600 ml Balance -1060 ml -400 ml Intake Oral 140 ml 200 ml Output Urine Total 1200 ml 600 ml # Voids 3 Objective PHYSICAL EXAMINATION: GENERAL: Patient is well-developed, well-nourished female, in no apparent distress. HEENT: Eyes pupils are equal and responsive to light and accommodation. Extraocular movements are intact. NECK: Supple. No lymphadenopathy. CHEST: Lungs are clear to auscultation bilaterally. No wheezes or rales. CARDIOVASCULAR: Click is heard. S1, S2 are normal without murmurs, rubs, or gallops. ABDOMEN: Soft, nontender, nondistended. Positive bowel sounds. No evidence of hepatosplenomegaly. Currently, no rebound or guarding noted. EXTREMITIES: Negative for clubbing, cyanosis, or edema. RECTAL/GENITAL: Not performed. NEUROLOGIC: Cranial nerves II to XII grossly intact without focal deficits. Motor strength is 5/5 bilaterally. Deep tendon reflexes are 2+ plantar. Assessment/Plan Assessment/Plan ASSESSMENT: This is a 69-year-old female. 1. Chest pain. 2. History of aortic stenosis (AVR X2) 3. Diabetes type 2. 4. Hypertension. 5. Hypercholesterolemia. 6. Iron deficiency anemia 7. Fever TREATMENT: 1. Chest pain/aortic stenosis. On Xarelto. A Cardiology consultation has beenobtained with Dr. Geraldo Daley. Serial troponin levels are negative. LVEF=55% 2. Diabetes type 2. Continue Januvia and NovoLog sliding scale. 3. Hypertension. Continue losartan as above. 4. Hypercholesterolemia. Continue pravastatin as above. 5. IV iron per GI=Dr Sam; no GI procedures planned 6. ID=Dr Rossi; urine and blood cultures pending; ABX=vanco and ceftriaxone 7. COVID 19 swab pending Dimitris Frederick MD Mar 19, 2020 16:29
[2020-03-19 20:00] VITALS: BP 104/51
[2020-03-19] MEDS: Iron Sucrose 100 MG in NS 55 ML IV SCH (20:13)
[2020-03-19] MEDS ORDERED: Vancomycin 750mg/NS 275ml IVPB SCH ×2 (21:00)
--- NOTE | 2020-03-19 22:20 | General Progress Note ---
Assessment/Plan Assessment/Plan: Assessment - atypical chest/(L) shoulder pain, presumed musculoskeletal - transient nausea, ? reflux - now resolved - s/p EGD/colon about 1.5 years ago - anemia - OB (-) stools - DM - HTN - s/p AVR for - high cholesterol - CVA Recommendations - follow symptoms - check stool OB --> negative - PO as tolerated - no GI endoscopy planned Subjective Allergies: Coded Allergies: TRAMADOL (Verified Allergy, Unknown, 03/14/20) Subjective Feels OK some chest and (L) shoulder pain, but motion related getting PT has not walked for years tolerating PO Objective Last 24 Hour Vital Signs Date Time Temp Pulse Resp B/P (MAP) Pulse Ox O2 Delivery O2 Flow Rate FiO2 03/19/20 21:00 Room Air 03/19/20 20:44 101.3 03/19/20 20:00 101.8 78 20 104/51 (68) 93 03/19/20 16:00 97.5 74 20 105/47 (66) 95 03/19/20 15:35 74 03/19/20 12:00 97.5 74 20 105/45 (65) 96 03/19/20 11:55 75 03/19/20 09:01 104/40 03/19/20 09:00 Room Air 03/19/20 08:00 98.8 79 20 104/40 (61) 95 03/19/20 07:45 78 03/19/20 06:01 97.7 03/19/20 04:00 86 03/19/20 04:00 100.8 86 19 127/73 (91) 95 03/19/20 00:00 97.7 81 19 109/60 (76) 94 03/19/20 00:00 78 Intake and Output 03/18/20 03/19/20 19:00 07:00 Intake Total 140 ml 200 ml Output Total 1200 ml 600 ml Balance -1060 ml -400 ml Intake Oral 140 ml 200 ml Output Urine Total 1200 ml 600 ml # Voids 3 Laboratory Tests 03/19/20 04:00: White Blood Count 10.4, Red Blood Count 3.36L, Hemoglobin 9.4L, Hematocrit 30.1L , Mean Corpuscular Volume 89, Mean Corpuscular Hemoglobin 27.8, Mean Corpuscular Hemoglobin Concent 31.1L, Red Cell Distribution Width 15.6H, Platelet Count 215, Mean Platelet Volume 6.7, Neutrophils (%) (Auto) 64.9, Lymphocytes (%) (Auto) 26.3, Monocytes (%) (Auto) 7.1, Eosinophils (%) (Auto) 1.1, Basophils (%) (Auto) 0.7, Erythrocyte Sedimentation Rate 111H, Urine Color Pale yellow, Urine Appearance Slightly cloudy, Urine pH 8, Urine Specific [place] 1.010, Urine Protein 3+H, Urine Glucose (UA) Negative, Urine Ketones Negative, Urine Blood 4+H, Urine Nitrite Negative, Urine Bilirubin Negative, Urine Urobilinogen 4H, Urine Leukocyte Esterase 3+H, Urine RBC 5-10H, Urine WBC 10-15H, Urine Squamous Epithelial Cells Few, Urine Bacteria ManyH, Sodium Level 139, Potassium Level 3.9, Chloride Level 103, Carbon Dioxide Level 27, Anion Gap 9, Blood Urea Nitrogen 19H, Creatinine 1.4H, Estimat Glomerular Filtration Rate 37.1, Glucose Level 227H, Calcium Level 8.4L, Total Bilirubin 0.5, Aspartate Amino Transf (AST/SGOT) 17, Alanine Aminotransferase (ALT/SGPT) 24, Alkaline Phosphatase 139H, C-Reactive Protein, Quantitative 7.5H, Total Protein 6.9, Albumin 2.6L, Globulin 4.3, Albumin/Globulin Ratio 0.6L, Lipase 78, HIV (1& 2) Antibody Rapid Negative Height (Feet): 5 Height (Inches): 3.00 Weight (Pounds): 160 Objective NCAT supple CTA RR abd soft (+) frozen (L) shoulder Quinn Sloan MD Mar 19, 2020 22:20
[2020-03-19] MEDS: cefTRIAXone 1 GM in D5W 55 ML IVPB SCH (22:34)
[2020-03-20] VITALS: BP 114/51
[2020-03-20 04:00] VITALS: BP 145/63
[2020-03-20 05:53] LABS: ANION GAP 8 mmol/L (5-15); BLOOD UREA NITROGEN 17 mg/dL (7-18); CALCIUM 8.9 MG/DL (8.5-10.1); CARBON DIOXIDE 27 MMOL/L (21-32); CHLORIDE 104 MMOL/L (98-107); CREATININE 1.4 MG/DL (0.55-1.30); POTASSIUM 3.7 MMOL/L (3.5-5.1); SODIUM 139 MMOL/L (136-145)
[2020-03-20] MEDS: NovoLOG Insulin Flexpen SUBQ SCH ×3 (05:59→17:00)
[2020-03-20 06:13] LABS: BASOPHILS % (AUTO) 0.9 % (0.0-2.0); EOSINOPHILS % (AUTO) 1.9 % (0.0-3.0); HEMATOCRIT 33.2 % (37.0-47.0); HEMOGLOBIN 9.9 G/DL (12.0-16.0); LYMPHOCYTES % (AUTO) 38.1 % (20.0-45.0); MEAN CORPUSCULAR VOLUME 91 FL (80-99); MONOCYTES % (AUTO) 8.4 % (1.0-10.0); NEUTROPHILS % (AUTO) 50.6 % (45.0-75.0); PLATELET COUNT 231 K/UL (150-450); RED BLOOD COUNT 3.65 M/UL (4.20-5.40); RED CELL DISTRIBUTION WIDTH 16.1 % (11.6-14.8); WHITE BLOOD COUNT 6.5 K/UL (4.8-10.8)
[2020-03-20 08:00] VITALS: BP 107/41
[2020-03-20] MEDS: Aspirin Baby 81mg ORAL SCH (09:08)
[2020-03-20] MEDS: Sucralfate 1gm tab ORAL SCH ×3 (09:08→17:15)
[2020-03-20] MEDS: sitaGLIPtin 25mg tab ORAL SCH (09:09)
[2020-03-20] MEDS: Xarelto 10mg tab ORAL SCH (09:09)
[2020-03-20] MEDS: Morphine Sulfate 4mg/ml Inj (IV USE ONLY) IVP PRN ×2 (09:10→13:30)
--- NOTE | 2020-03-20 11:00 | Internal Med Progress Note ---
Subjective Date of Service: Mar 20, 2020 Physician Name YolyDimitris Attending Physician Humberto Williamson MD Current Medications Medications (Trade) Dose Ordered Sig/Ran Route PRN Reason Start Time Stop Time Status Last Admin Dose Admin Acetaminophen (Tylenol) 650 mg Q4H PRN ORAL FEVER 03/14/20 14:15 04/13/20 14:14 03/20/20 09:09 Acetaminophen (Tylenol) 650 mg Q6H PRN ORAL Pain Scale (3-5) TEMP > 100.5 03/16/20 18:30 04/15/20 18:29 Aspirin (ASA) 162 mg DAILY ORAL 03/15/20 09:00 04/29/20 08:59 03/20/20 09:08 Ceftriaxone Sodium 1 gm/ Dextrose 55 ml @ 110 mls/hr Q24H IVPB 03/18/20 22:00 03/25/20 21:59 03/19/20 22:34 Dextrose (Dextrose 50%) 25 ml Q30M PRN IV Hypoglycemia 03/14/20 14:30 06/12/20 14:29 Dextrose (Dextrose 50%) 50 ml Q30M PRN IV Hypoglycemia 03/14/20 14:30 06/12/20 14:29 Diltiazem HCl (Cardizem) 10 mg Q1H PRN IV heart rate more than 120, 03/14/20 14:15 04/13/20 14:14 Enalaprilat (Vasotec) 2.5 mg Q6H PRN IV sbp more than 160 03/14/20 14:15 04/13/20 14:14 Folic Acid (Folate) 1 mg DAILY ORAL 03/17/20 09:00 04/16/20 08:59 03/20/20 09:09 Gabapentin (Neurontin) 300 mg THREE TIMES A DAY ORAL 03/15/20 13:00 04/14/20 12:59 03/20/20 09:09 Insulin Aspart (NovoLOG) BEFORE MEALS AND HS SUBQ 03/14/20 16:30 06/12/20 16:29 03/20/20 05:59 Iron Sucrose 100 mg/Sodium Chloride 60 ml @ 240 mls/hr BEDTIME IV 03/16/20 21:00 03/20/20 21:14 03/19/20 20:13 Morphine Sulfate (Morphine Sulfate) 2 mg Q4H PRN IVP Moderate Pain (Pain Scale 4-6) 03/14/20 17:30 03/21/20 17:29 03/19/20 21:14 Morphine Sulfate (Morphine Sulfate) 4 mg Q4H PRN IVP Severe Pain (Pain Scale 7-10) 03/14/20 17:30 03/21/20 17:29 03/20/20 09:10 Nitroglycerin (Ntg) 0.4 mg Q5M PRN SL Prn Chest Pain 03/14/20 14:15 04/13/20 14:14 Ondansetron HCl (Zofran) 4 mg Q6H PRN IVP Nausea & Vomiting 03/14/20 14:15 04/13/20 14:14 Pantoprazole (Protonix) 40 mg EVERY 12 HOURS ORAL 03/15/20 13:00 04/14/20 12:59 03/20/20 09:09 Polyethylene Glycol (Miralax) 17 gm DAILYPRN PRN ORAL Constipation 03/14/20 14:15 04/13/20 14:14 03/17/20 06:15 Rivaroxaban (Xarelto) 10 mg DAILY ORAL 03/16/20 09:00 06/14/20 08:59 03/20/20 09:09 Sitagliptin Phosphate (Januvia) 25 mg DAILY ORAL 03/16/20 09:00 04/15/20 08:59 03/20/20 09:09 Sucralfate (Carafate) 1 gm FOUR TIMES A DAY ORAL 03/15/20 13:00 06/13/20 12:59 03/20/20 09:08 Temazepam (Restoril) 15 mg HSPRN PRN ORAL Insomnia 03/14/20 14:15 03/21/20 14:14 03/17/20 21:45 Vancomycin HCl (Vanco pharmacy to dose) 1 ea DAILY PRN MISC Per rx protocol 03/18/20 19:15 04/17/20 19:14 Vancomycin HCl 750 mg/Sodium Chloride 275 ml @ 183.333 mls/hr Q24H IVPB 03/19/20 21:00 03/24/20 20:59 03/19/20 20:47 Allergies: Coded Allergies: TRAMADOL (Verified Allergy, Unknown, 03/14/20) ROS Limited/Unobtainable: No Constitutional: Reports: no symptoms HEENT: Reports: no symptoms Cardiovascular: Reports: no symptoms Respiratory: Reports: no symptoms Gastrointestinal/Abdominal: Reports: no symptoms Genitourinary: Reports: no symptoms Neurologic/Psychiatric: Reports: no symptoms Subjective 69 YO F admitted with chest pain. Cover for Int Med-Dr Williamson. Now UTI Objective Last Vital Signs Date Time Temp Pulse Resp B/P (MAP) Pulse Ox O2 Delivery O2 Flow Rate FiO2 03/20/20 09:39 98.7 03/20/20 09:00 Room Air 03/20/20 08:00 62 19 107/41 (63) 96 03/20/20 07:00 21 Laboratory Tests Test 03/20/20 04:00 White Blood Count 6.5 K/UL (4.8-10.8) Red Blood Count 3.65 M/UL (4.20-5.40) L Hemoglobin 9.9 G/DL (12.0-16.0) L Hematocrit 33.2 % (37.0-47.0) L Mean Corpuscular Volume 91 FL (80-99) Mean Corpuscular Hemoglobin 27.2 PG (27.0-31.0) Mean Corpuscular Hemoglobin Concent 29.9 G/DL (32.0-36.0) L Red Cell Distribution Width 16.1 % (11.6-14.8) H Platelet Count 231 K/UL (150-450) Mean Platelet Volume 7.1 FL (6.5-10.1) Neutrophils (%) (Auto) 50.6 % (45.0-75.0) Lymphocytes (%) (Auto) 38.1 % (20.0-45.0) Monocytes (%) (Auto) 8.4 % (1.0-10.0) Eosinophils (%) (Auto) 1.9 % (0.0-3.0) Basophils (%) (Auto) 0.9 % (0.0-2.0) Sodium Level 139 MMOL/L (136-145) Potassium Level 3.7 MMOL/L (3.5-5.1) Chloride Level 104 MMOL/L (98-107) Carbon Dioxide Level 27 MMOL/L (21-32) Anion Gap 8 mmol/L (5-15) Blood Urea Nitrogen 17 mg/dL (7-18) Creatinine 1.4 MG/DL (0.55-1.30) H Estimat Glomerular Filtration Rate 37.1 mL/min (>60) Glucose Level 205 MG/DL (74-106) H Calcium Level 8.9 MG/DL (8.5-10.1) Microbiology Date/Time Source Procedure Growth Status 03/18/20 20:35 Blood Blood Culture - Preliminary NO GROWTH AFTER 24 HOURS Resulted 03/18/20 20:20 Blood Blood Culture - Preliminary NO GROWTH AFTER 24 HOURS Resulted 03/18/20 13:00 Nasopharynx Coronavirus COVID-19 PCR ([facility]) - Final Complete 03/19/20 04:00 Urine,Clean Catch Urine Culture - Preliminary Gram Negative Bacillus 1 Resulted Intake and Output 03/19/20 03/20/20 19:00 07:00 Intake Total 300 ml 500 ml Output Total 500 ml 1200 ml Balance -200 ml -700 ml Intake Oral 300 ml 500 ml Output Urine Total 500 ml 1200 ml Objective PHYSICAL EXAMINATION: GENERAL: Patient is well-developed, well-nourished female, in no apparent distress. HEENT: Eyes pupils are equal and responsive to light and accommodation. Extraocular movements are intact. NECK: Supple. No lymphadenopathy. CHEST: Lungs are clear to auscultation bilaterally. No wheezes or rales. CARDIOVASCULAR: Click is heard. S1, S2 are normal without murmurs, rubs, or gallops. ABDOMEN: Soft, nontender, nondistended. Positive bowel sounds. No evidence of hepatosplenomegaly. Currently, no rebound or guarding noted. EXTREMITIES: Negative for clubbing, cyanosis, or edema. RECTAL/GENITAL: Not performed. NEUROLOGIC: Cranial nerves II to XII grossly intact without focal deficits. Motor strength is 5/5 bilaterally. Deep tendon reflexes are 2+ plantar. Assessment/Plan Assessment/Plan ASSESSMENT: This is a 69-year-old female. 1. Chest pain. 2. History of aortic stenosis (AVR X2) 3. Diabetes type 2. 4. Hypertension. 5. Hypercholesterolemia. 6. Iron deficiency anemia 7. Fever 8. Urinary tract infection TREATMENT: 1. Chest pain/aortic stenosis. On Xarelto. A Cardiology consultation has beenobtained with Dr. Geraldo Daley. Serial troponin levels are negative. LVEF=55% 2. Diabetes type 2. Continue Januvia and NovoLog sliding scale. 3. Hypertension. Continue losartan as above. 4. Hypercholesterolemia. Continue pravastatin as above. 5. IV iron per GI=Dr Sam; no GI procedures planned 6. ID=Dr Rossi; urine and blood cultures pending; ABX=vanco and ceftriaxone 7. COVID 19 swab =Negative Dimitris Frederick MD Mar 20, 2020 11:00
--- NOTE | 2020-03-20 11:44 | Infectious Diseases Prog Note ---
Assessment/Plan Assessment/Plan Assessment: Fever- ?source- r/o bacteremia, COVID, endocarditis No leukocytosis UTI -03/19 u/a wbc 10-15, nit neg, leuk +3; ucx >100k GNR -03/18 BCx NTD SARS COV2 PCR -03/18 CXR: NO ACUTE CARDIOPULMONARY DISEASE. -03/14 CXR: Nonspecific minimal perihilar interstitial prominence and central bronchial wall thickening, could indicate bronchitis or senescent changes. Nodefinite acute process otherwise -2d Echo: no vegetations -Head CT: Negative for acute intracranial bleed or mass effect. Old right basal ganglia lacunar infarct. Minimal age-related volume loss -V. Duplex BLE: No DVT -HIV ab screen neg Chest pain, atypical -Trops neg L shoulder pain- rotator cuff disease -Shoulder xray: DEGENERATIVE CHANGES OF THE SHOULDER WITH NARROWING OF THE IMPINGEMENT SPACE SUGGESTING UNDERLYING ROTATOR CUFF ABNORMALITY. NO ACUTE BONY ABNORMALITY. 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 Will continue to follow along with you. Abelino leon RN. Subjective Allergies: Coded Allergies: TRAMADOL (Verified Allergy, Unknown, 03/14/20) Subjective tM 101.5 cr increased no leukocytosis Objective Vital Signs Last 24 Hour Vital Signs Date Time Temp Pulse Resp B/P (MAP) Pulse Ox O2 Delivery O2 Flow Rate FiO2 03/20/20 09:39 98.7 03/20/20 09:00 Room Air 03/20/20 08:00 99.1 62 19 107/41 (63) 96 03/20/20 07:33 80 03/20/20 07:00 62 18 96 Room Air 21 03/20/20 04:00 65 03/20/20 04:00 98.4 75 18 145/63 (90) 97 03/20/20 00:00 69 03/20/20 00:00 98.4 68 20 114/51 (72) 96 03/19/20 21:44 101.8 03/19/20 21:00 Room Air 03/19/20 20:00 79 03/19/20 20:00 101.8 78 20 104/51 (68) 93 03/19/20 16:00 97.5 74 20 105/47 (66) 95 03/19/20 15:35 74 03/19/20 12:00 97.5 74 20 105/45 (65) 96 03/19/20 11:55 75 Height (Feet): 5 Height (Inches): 3.00 Weight (Pounds): 162 Objective not examined to limit COVID19 exposure Microbiology Date/Time Source Procedure Growth Status 03/18/20 20:35 Blood Blood Culture - Preliminary NO GROWTH AFTER 24 HOURS Resulted 03/18/20 20:20 Blood Blood Culture - Preliminary NO GROWTH AFTER 24 HOURS Resulted 03/18/20 13:00 Nasopharynx Coronavirus COVID-19 PCR ([facility]) - Final Complete 03/19/20 04:00 Urine,Clean Catch Urine Culture - Preliminary Gram Negative Bacillus 1 Resulted Laboratory Tests Test 03/20/20 04:00 White Blood Count 6.5 K/UL (4.8-10.8) Red Blood Count 3.65 M/UL (4.20-5.40) L Hemoglobin 9.9 G/DL (12.0-16.0) L Hematocrit 33.2 % (37.0-47.0) L Mean Corpuscular Volume 91 FL (80-99) Mean Corpuscular Hemoglobin 27.2 PG (27.0-31.0) Mean Corpuscular Hemoglobin Concent 29.9 G/DL (32.0-36.0) L Red Cell Distribution Width 16.1 % (11.6-14.8) H Platelet Count 231 K/UL (150-450) Mean Platelet Volume 7.1 FL (6.5-10.1) Neutrophils (%) (Auto) 50.6 % (45.0-75.0) Lymphocytes (%) (Auto) 38.1 % (20.0-45.0) Monocytes (%) (Auto) 8.4 % (1.0-10.0) Eosinophils (%) (Auto) 1.9 % (0.0-3.0) Basophils (%) (Auto) 0.9 % (0.0-2.0) Sodium Level 139 MMOL/L (136-145) Potassium Level 3.7 MMOL/L (3.5-5.1) Chloride Level 104 MMOL/L (98-107) Carbon Dioxide Level 27 MMOL/L (21-32) Anion Gap 8 mmol/L (5-15) Blood Urea Nitrogen 17 mg/dL (7-18) Creatinine 1.4 MG/DL (0.55-1.30) H Estimat Glomerular Filtration Rate 37.1 mL/min (>60) Glucose Level 205 MG/DL (74-106) H Calcium Level 8.9 MG/DL (8.5-10.1) Current Medications Medications (Trade) Dose Ordered Sig/Ran Route PRN Reason Start Time Stop Time Status Last Admin Dose Admin Acetaminophen (Tylenol) 650 mg Q4H PRN ORAL FEVER 03/14/20 14:15 04/13/20 14:14 03/20/20 09:09 Acetaminophen (Tylenol) 650 mg Q6H PRN ORAL Pain Scale (3-5) TEMP > 100.5 03/16/20 18:30 04/15/20 18:29 Aspirin (ASA) 162 mg DAILY ORAL 03/15/20 09:00 04/29/20 08:59 03/20/20 09:08 Ceftriaxone Sodium 1 gm/ Dextrose 55 ml @ 110 mls/hr Q24H IVPB 03/18/20 22:00 03/25/20 21:59 03/19/20 22:34 Dextrose (Dextrose 50%) 25 ml Q30M PRN IV Hypoglycemia 03/14/20 14:30 06/12/20 14:29 Dextrose (Dextrose 50%) 50 ml Q30M PRN IV Hypoglycemia 03/14/20 14:30 06/12/20 14:29 Diltiazem HCl (Cardizem) 10 mg Q1H PRN IV heart rate more than 120, 03/14/20 14:15 04/13/20 14:14 Enalaprilat (Vasotec) 2.5 mg Q6H PRN IV sbp more than 160 03/14/20 14:15 04/13/20 14:14 Folic Acid (Folate) 1 mg DAILY ORAL 03/17/20 09:00 04/16/20 08:59 03/20/20 09:09 Gabapentin (Neurontin) 300 mg THREE TIMES A DAY ORAL 03/15/20 13:00 04/14/20 12:59 03/20/20 09:09 Insulin Aspart (NovoLOG) BEFORE MEALS AND HS SUBQ 03/14/20 16:30 06/12/20 16:29 03/20/20 05:59 Iron Sucrose 100 mg/Sodium Chloride 60 ml @ 240 mls/hr BEDTIME IV 03/16/20 21:00 03/20/20 21:14 03/19/20 20:13 Morphine Sulfate (Morphine Sulfate) 2 mg Q4H PRN IVP Moderate Pain (Pain Scale 4-6) 03/14/20 17:30 03/21/20 17:29 03/19/20 21:14 Morphine Sulfate (Morphine Sulfate) 4 mg Q4H PRN IVP Severe Pain (Pain Scale 7-10) 03/14/20 17:30 03/21/20 17:29 03/20/20 09:10 Nitroglycerin (Ntg) 0.4 mg Q5M PRN SL Prn Chest Pain 03/14/20 14:15 04/13/20 14:14 Ondansetron HCl (Zofran) 4 mg Q6H PRN IVP Nausea & Vomiting 03/14/20 14:15 04/13/20 14:14 Pantoprazole (Protonix) 40 mg EVERY 12 HOURS ORAL 03/15/20 13:00 04/14/20 12:59 03/20/20 09:09 Polyethylene Glycol (Miralax) 17 gm DAILYPRN PRN ORAL Constipation 03/14/20 14:15 04/13/20 14:14 03/17/20 06:15 Rivaroxaban (Xarelto) 10 mg DAILY ORAL 03/16/20 09:00 06/14/20 08:59 03/20/20 09:09 Sitagliptin Phosphate (Januvia) 25 mg DAILY ORAL 03/16/20 09:00 04/15/20 08:59 03/20/20 09:09 Sucralfate (Carafate) 1 gm FOUR TIMES A DAY ORAL 03/15/20 13:00 06/13/20 12:59 03/20/20 09:08 Temazepam (Restoril) 15 mg HSPRN PRN ORAL Insomnia 03/14/20 14:15 03/21/20 14:14 03/17/20 21:45 Vancomycin HCl (Vanco pharmacy to dose) 1 ea DAILY PRN MISC Per rx protocol 03/18/20 19:15 04/17/20 19:14 Vancomycin HCl 750 mg/Sodium Chloride 275 ml @ 183.333 mls/hr Q24H IVPB 03/19/20 21:00 03/24/20 20:59 03/19/20 20:47 Margarita Rossi M.D. Mar 20, 2020 11:44
[2020-03-20 12:00] VITALS: BP 104/44
--- NOTE | 2020-03-20 12:10 | Pulmonology Progress Note ---
Subjective ROS Limited/Unobtainable: No Interval Events: Constitutional: Reports: no symptoms HEENT: Repors: no symptoms Allergies: Coded Allergies: TRAMADOL (Verified Allergy, Unknown, 03/14/20) Objective Last 24 Hour Vital Signs Date Time Temp Pulse Resp B/P (MAP) Pulse Ox O2 Delivery O2 Flow Rate FiO2 03/20/20 12:00 97.7 71 18 104/44 (64) 96 03/20/20 09:39 98.7 03/20/20 09:00 Room Air 03/20/20 08:00 99.1 62 19 107/41 (63) 96 03/20/20 07:33 80 03/20/20 07:00 62 18 96 Room Air 21 03/20/20 04:00 65 03/20/20 04:00 98.4 75 18 145/63 (90) 97 03/20/20 00:00 69 03/20/20 00:00 98.4 68 20 114/51 (72) 96 03/19/20 21:44 101.8 03/19/20 21:00 Room Air 03/19/20 20:00 79 03/19/20 20:00 101.8 78 20 104/51 (68) 93 03/19/20 16:00 97.5 74 20 105/47 (66) 95 03/19/20 15:35 74 Intake and Output 03/19/20 03/20/20 19:00 07:00 Intake Total 300 ml 500 ml Output Total 500 ml 1200 ml Balance -200 ml -700 ml Intake Oral 300 ml 500 ml Output Urine Total 500 ml 1200 ml General Appearance: WD/WN HEENT: normocephalic, atraumatic Respiratory: chest wall non-tender, lungs clear Cardiovascular: normal peripheral pulses, normal rate Abdomen: normal bowel sounds, soft, non tender Extremities: pedal pulses normal Skin: no rash Neurologic: no motor/sensory deficits, alert, oriented x 3, responsive Musculoskeletal: normal muscle bulk Microbiology Date/Time Source Procedure Growth Status 03/18/20 20:35 Blood Blood Culture - Preliminary NO GROWTH AFTER 24 HOURS Resulted 03/18/20 20:20 Blood Blood Culture - Preliminary NO GROWTH AFTER 24 HOURS Resulted 03/18/20 13:00 Nasopharynx Coronavirus COVID-19 PCR ([facility]) - Final Complete 03/19/20 04:00 Urine,Clean Catch Urine Culture - Preliminary Gram Negative Bacillus 1 Resulted Laboratory Tests 03/20/20 04:00: White Blood Count 6.5, Red Blood Count 3.65L, Hemoglobin 9.9L, Hematocrit 33.2L , Mean Corpuscular Volume 91, Mean Corpuscular Hemoglobin 27.2, Mean Corpuscular Hemoglobin Concent 29.9L, Red Cell Distribution Width 16.1H, Platelet Count 231, Mean Platelet Volume 7.1, Neutrophils (%) (Auto) 50.6, Lymphocytes (%) (Auto) 38.1, Monocytes (%) (Auto) 8.4, Eosinophils (%) (Auto) 1.9, Basophils (%) (Auto) 0.9, Sodium Level 139, Potassium Level 3.7, Chloride Level 104, Carbon Dioxide Level 27, Anion Gap 8, Blood Urea Nitrogen 17, Creatinine 1.4H, Estimat Glomerular Filtration Rate 37.1, Glucose Level 205H, Calcium Level 8.9 Current Medications Medications (Trade) Dose Ordered Sig/Ran Route PRN Reason Start Time Stop Time Status Last Admin Dose Admin Acetaminophen (Tylenol) 650 mg Q4H PRN ORAL FEVER 03/14/20 14:15 04/13/20 14:14 03/20/20 09:09 Acetaminophen (Tylenol) 650 mg Q6H PRN ORAL Pain Scale (3-5) TEMP > 100.5 03/16/20 18:30 04/15/20 18:29 Aspirin (ASA) 162 mg DAILY ORAL 03/15/20 09:00 04/29/20 08:59 03/20/20 09:08 Dextrose (Dextrose 50%) 25 ml Q30M PRN IV Hypoglycemia 03/14/20 14:30 06/12/20 14:29 Dextrose (Dextrose 50%) 50 ml Q30M PRN IV Hypoglycemia 03/14/20 14:30 06/12/20 14:29 Diltiazem HCl (Cardizem) 10 mg Q1H PRN IV heart rate more than 120, 03/14/20 14:15 04/13/20 14:14 Enalaprilat (Vasotec) 2.5 mg Q6H PRN IV sbp more than 160 03/14/20 14:15 04/13/20 14:14 Folic Acid (Folate) 1 mg DAILY ORAL 03/17/20 09:00 04/16/20 08:59 03/20/20 09:09 Gabapentin (Neurontin) 300 mg THREE TIMES A DAY ORAL 03/15/20 13:00 04/14/20 12:59 03/20/20 12:01 Insulin Aspart (NovoLOG) BEFORE MEALS AND HS SUBQ 03/14/20 16:30 06/12/20 16:29 03/20/20 11:50 Iron Sucrose 100 mg/Sodium Chloride 60 ml @ 240 mls/hr BEDTIME IV 03/16/20 21:00 03/20/20 21:14 03/19/20 20:13 Morphine Sulfate (Morphine Sulfate) 2 mg Q4H PRN IVP Moderate Pain (Pain Scale 4-6) 03/14/20 17:30 03/21/20 17:29 03/19/20 21:14 Morphine Sulfate (Morphine Sulfate) 4 mg Q4H PRN IVP Severe Pain (Pain Scale 7-10) 03/14/20 17:30 03/21/20 17:29 03/20/20 09:10 Nitroglycerin (Ntg) 0.4 mg Q5M PRN SL Prn Chest Pain 03/14/20 14:15 04/13/20 14:14 Ondansetron HCl (Zofran) 4 mg Q6H PRN IVP Nausea & Vomiting 03/14/20 14:15 04/13/20 14:14 Pantoprazole (Protonix) 40 mg EVERY 12 HOURS ORAL 03/15/20 13:00 04/14/20 12:59 03/20/20 09:09 Piperacillin Sod/ Tazobactam Sod 3.375 gm/Sodium Chloride 110 ml @ 27.5 mls/hr EVERY 8 HOURS IVPB 03/20/20 14:00 03/25/20 13:59 Polyethylene Glycol (Miralax) 17 gm DAILYPRN PRN ORAL Constipation 03/14/20 14:15 04/13/20 14:14 03/17/20 06:15 Rivaroxaban (Xarelto) 10 mg DAILY ORAL 03/16/20 09:00 06/14/20 08:59 03/20/20 09:09 Sitagliptin Phosphate (Januvia) 25 mg DAILY ORAL 03/16/20 09:00 04/15/20 08:59 03/20/20 09:09 Sucralfate (Carafate) 1 gm FOUR TIMES A DAY ORAL 03/15/20 13:00 06/13/20 12:59 03/20/20 12:01 Temazepam (Restoril) 15 mg HSPRN PRN ORAL Insomnia 03/14/20 14:15 03/21/20 14:14 03/17/20 21:45 Vancomycin HCl (Vanco pharmacy to dose) 1 ea DAILY PRN MISC Per rx protocol 03/18/20 19:15 04/17/20 19:14 Vancomycin HCl 750 mg/Sodium Chloride 275 ml @ 183.333 mls/hr Q24H IVPB 03/19/20 21:00 03/24/20 20:59 03/19/20 20:47 Assessment/Plan Problems: (1) ACS (acute coronary syndrome) (2) CAD (coronary artery disease) (3) Chronic anticoagulation (4) History of CVA (cerebrovascular accident) (5) Left-sided weakness (6) Diabetes mellitus Assessment/Plan was febrile last night Adhikari culture Urine analysis noted, GNR sensitivity pending started on Vancomycine and ceftriaxone. serial ekg, troponin echocardiogram reviewed: EF 55%, PA pressure 50 Cardiology siding scale diabetic diet dvt prophylaxis. Aurea Kirby MD Mar 20, 2020 12:10
[2020-03-20] MEDS ORDERED: Piperacillin/Tazobactam 3.375 GM in NS 110 ML IVPB SCH (14:00)
[2020-03-20 16:00] VITALS: BP 114/47
[2020-03-20] MEDS ORDERED: VANCOMYCIN750 MG/150 IV (18:48)
[2020-03-20] MEDS ORDERED: RESTORIL15 MG ORAL (18:48)
[2020-03-20] MEDS ORDERED: CARAFATE1 G1 ORAL (18:49)
[2020-03-20] MEDS ORDERED: MORPHINE 22 MG/1 ML IV (18:50)
[2020-03-20] MEDS ORDERED: ZOSYN 3.373.375 GM/1 IVPB (18:56)
[2020-03-20] MEDS ORDERED: PROTONIX40 MG ORAL (18:57)
[2020-03-20] MEDS ORDERED: NOVOLOG100 UNITS1 (18:58)
--- NOTE | 2020-03-20 19:22 | Cardiology Progress Note ---
Assessment/Plan Assessment/Plan 1. Chest pain probable chest wall tenderness 2. History of aortic valve replacement x2. 3. History of CVA. 4. Diabetes mellitus. 5. History of hypertension. 6. History of hyperlipidemia. 7. Fevers. 8. Left-sided weakness vs pain induced decresed motion previously: echo noted normal wall motion no effusion has pulm htn ekg not change trop neg despite several days of pain venous duplex neg for dvt pain was reproducible on the chest wall palpation no further cardiac salgado at this time out pt fu at this time: tele sinus fever salgado per id bp border line off cozaar for nwo esr sig elelvated fistr covid neg 2nd still pening fever up to 101.8 yest beign transferred to another hospital Subjective Subjective pt is still in covid isolation so i did not see her , eating well per rn no diarrhea no cough by rn Objective Last 24 Hour Vital Signs Date Time Temp Pulse Resp B/P (MAP) Pulse Ox O2 Delivery O2 Flow Rate FiO2 03/20/20 16:00 98.1 65 20 114/47 (69) 97 03/20/20 15:52 70 03/20/20 12:00 97.7 71 18 104/44 (64) 96 03/20/20 11:28 64 03/20/20 09:39 98.7 03/20/20 09:00 Room Air 03/20/20 08:00 99.1 62 19 107/41 (63) 96 03/20/20 07:33 80 03/20/20 07:00 62 18 96 Room Air 21 03/20/20 04:00 65 03/20/20 04:00 98.4 75 18 145/63 (90) 97 03/20/20 00:00 69 03/20/20 00:00 98.4 68 20 114/51 (72) 96 03/19/20 21:44 101.8 03/19/20 21:00 Room Air 03/19/20 20:00 79 03/19/20 20:00 101.8 78 20 104/51 (68) 93 Intake and Output 03/19/20 03/20/20 19:00 07:00 Intake Total 300 ml 500 ml Output Total 500 ml 1200 ml Balance -200 ml -700 ml Intake Oral 300 ml 500 ml Output Urine Total 500 ml 1200 ml Laboratory Tests Test 03/20/20 04:00 White Blood Count 6.5 K/UL (4.8-10.8) Red Blood Count 3.65 M/UL (4.20-5.40) L Hemoglobin 9.9 G/DL (12.0-16.0) L Hematocrit 33.2 % (37.0-47.0) L Mean Corpuscular Volume 91 FL (80-99) Mean Corpuscular Hemoglobin 27.2 PG (27.0-31.0) Mean Corpuscular Hemoglobin Concent 29.9 G/DL (32.0-36.0) L Red Cell Distribution Width 16.1 % (11.6-14.8) H Platelet Count 231 K/UL (150-450) Mean Platelet Volume 7.1 FL (6.5-10.1) Neutrophils (%) (Auto) 50.6 % (45.0-75.0) Lymphocytes (%) (Auto) 38.1 % (20.0-45.0) Monocytes (%) (Auto) 8.4 % (1.0-10.0) Eosinophils (%) (Auto) 1.9 % (0.0-3.0) Basophils (%) (Auto) 0.9 % (0.0-2.0) Sodium Level 139 MMOL/L (136-145) Potassium Level 3.7 MMOL/L (3.5-5.1) Chloride Level 104 MMOL/L (98-107) Carbon Dioxide Level 27 MMOL/L (21-32) Anion Gap 8 mmol/L (5-15) Blood Urea Nitrogen 17 mg/dL (7-18) Creatinine 1.4 MG/DL (0.55-1.30) H Estimat Glomerular Filtration Rate 37.1 mL/min (>60) Glucose Level 205 MG/DL (74-106) H Calcium Level 8.9 MG/DL (8.5-10.1) Microbiology Date/Time Source Procedure Growth Status 03/18/20 20:35 Blood Blood Culture - Preliminary NO GROWTH AFTER 24 HOURS Resulted 03/18/20 20:20 Blood Blood Culture - Preliminary NO GROWTH AFTER 24 HOURS Resulted 03/18/20 13:00 Nasopharynx Coronavirus COVID-19 PCR ([facility]) - Final Complete 03/19/20 04:00 Urine,Clean Catch Urine Culture - Preliminary Gram Negative Bacillus 1 Resulted Objective i did not examin pt as pt now in covid isolation Geraldo Daley MD Mar 20, 2020 19:22
--- NOTE | 2020-03-21 13:57 | Discharge Summary ---
Discharge Summary Discharge Summary _ DATE OF ADMISSION: 03/14/2020 DATE OF DISCHARGE: 03/20/2020 DISCHARGED BY: Dr. Williamson REASON FOR ADMISSION: 69 years old female with past medical history of CVA with left-sided weakness, diabetes mellitus, hypertension, aortic valve surgery x2, on chronic anticoagulation, presented to emergency department with chief complaint of chest pain for few days. Patient was borderline hypotensive. Chest pain reported as constant , 5 out of 10 , no change of pain with position or exertion. No headaches. No pleuritic chest pain , no cough, no shortness of breath . No vomiting or diarrhea. Upon evaluation vital signs were stable. Laboratory work-up revealed no leukocytosis , anemia with hemoglobin 9.5 , hematocrit 28.4, platelet count 211. Stable electrolytes. BUN 17, creatinine 1.5. Glucose 213. Stable LFT. Albumin 2.9. Troponin 0.011, pro BNP 990. EKG revealed sinus rhythm with nonspecific ST and T wave changes. Chest x-ray revealed no acute cardiopulmonary pathology. Urinalysis revealed gross evidence of urinary tract infection, +3 protein. Patient subsequently admitted to rule out acute coronary syndrome. CONSULTANTS: transitional care manager Dr. Daley pulmonary Dr. Kirby ID specialist Dr. Rossi GI specialist [facility] COURSE: Patient admitted to telemetry floor. Serial troponin were negative. EKG revealed no acute ischemic changes. Patient was ruled out for acute myocardial infarction. Echocardiogram revealed preserved ejection fraction of 55%. No evidence of wall motion abnormality. Right ventricular systolic pressure of 50 consistent with a moderate pulmonary hypertension. Antiplatelet therapy with aspirin continued. Lipid panel revealed stable LDH and total cholesterol. Triglycerides 176. Patient was counseled on the low-fat low-cholesterol cardiac diet. Blood pressure was managed with angiotensin receptor jairo. Chest pain was most possibly musculoskeletal , as it was reproducible on palpation of the left-sided chest wall. Supplemental oxygen provided and titrated to keep pulse oximetry above 92%. Pulmonary toilet provided. Chest x-ray show findings of possible bronchitis versus senescent changes. Repeated chest x-ray revealed no acute cardiopulmonary pathology. Venous duplex bilateral lower extremity revealed no evidence of acute DVT. Patient complained of the left shoulder pain. X-ray of the left shoulder revealed degenerative changes with narrowing of the impingement sign at base , suggesting underlying rotator cuff abnormality. No acute bony abnormality. Patient was on chronic anticoagulation. Hemoglobin and hematocrit were closely monitored with goal to keep hemoglobin above 7. Patient started on IV iron. Stool for occult blood was negative. GI specialist followed. EGD and colonoscopy done 1.5 years ago. No GI procedure was planned , as per GI specialist , unless stool OB positive (stool OB was negative as mentioned above). GI prophylaxis provided. Bowel regimen instituted. Blood sugar was managed with Januvia and sliding scale of insulin. Pain management was a addressed. Supportive care provided. SARS COV 2 by PCR on 03/18/ and not detected. Patient had fever. ID specialist followed. Urine culture revealed E. coli and gram-positive cocci. Blood cultures were negative. Antibiotic provided as per ID recommendation. Fevers resolved. No leukocytosis. Patient clinically stabilized and was ready for transfer to [facility]/ [facility]. FINAL DIAGNOSES: Chest pain, likely musculoskeletal Aortic stenosis, status post aortic valve replacement Urinary tract infection Hypertension Hyperlipidemia Chronic anticoagulation History of CVA with left-sided weakness Diabetes mellitus Anemia Left shoulder pain due to rotator cuff disease Moderate pulmonary hypertension DISCHARGE MEDICATIONS: See Medication Reconciliation list. DISCHARGE INSTRUCTIONS: Patient was transferred to contrcated facility/ [facility]. Patient was stable for transfer Rima Velazquez NP Mar 21, 2020 13:57
== END 2020-03-20 19:35 | disposition short-term general hospital (02) | DRG 313 ==
LOC: EDBD 09:20 → EMR 09:45 → 2E 12:54 → EDBEDREQ 13:34 → 2E 14:04
DX: R07.89 Other chest pain (principal); I69.354 Hemiplegia and hemiparesis following cerebral infarction affecting left non-dominant side; I27.20 Pulmonary hypertension, unspecified; R50.9 Fever, unspecified; E11.9 Type 2 diabetes mellitus without complications; M75.102 Unspecified rotator cuff tear or rupture of left shoulder, not specified as traumatic; I10 Essential (primary) hypertension; E87.8 Other disorders of electrolyte and fluid balance, not elsewhere classified; I25.10 Atherosclerotic heart disease of native coronary artery without angina pectoris; D50.9 Iron deficiency anemia, unspecified; Z95.4 Presence of other heart-valve replacement; Z90.49 Acquired absence of other specified parts of digestive tract; Z79.01 Long term (current) use of anticoagulants; Z79.4 Long term (current) use of insulin; Z88.6 Allergy status to analgesic agent; E78.5 Hyperlipidemia, unspecified; E66.01 Morbid (severe) obesity due to excess calories
CPT/HCPCS: 36415; 70450; 71045; 80048; 80053; 80061; 81003; 82270; 82378; 82550; 82607; 82746; 82962; 83540; 83550; 83615; 83690; 83880; 84443; 84484; 85007; 85025; 85044; 85060; 85610; 85651; 85730; 86140; 86703; 87040; 87086; 87181; 93005; 93306; 93970; 94664; 96374; 96375; 99285; J1815; J2405